=== PATIENT | female | born 1995 | race African-American/Black ===

== ENCOUNTER 2024-05-01 11:43 | Emergency (ER) | payer MEDICAID ==
[~2024-05-01] VITALS: Ht 167.6 cm; Wt 110.7 kg
[2024-05-01] MEDS: ONDANSETRON HCL 4 MG/2 ML VIAL IV ONE (12:21)
[2024-05-01] MEDS: SODIUM CHLORIDE 0.9% 1,000 ML IV ONE (12:22)
[2024-05-01 12:44] LABS: Urine Bacteria FEW /hpf (None Seen); Urine Blood Negative /uL (Negative); Urine Budding Yeast OCCASIONAL /hpf (None Seen); Urine Clarity Turbid (Clear); Urine Color Yellow (Yellow); Urine Hyaline Cast FEW /lpf (0 - 2); Urine Mucus FEW (None Seen); Urine Protein, UAD 1+ (Negative); Urine Specific Gravity 1.023 (1.001-1.035); Urine Urobilinogen Normal (Negative); Urine WBC 17 /hpf (0 - 5)
[2024-05-01 13:05] LABS: Basophils # (auto) 0 10 ^3/uL (0-0.2); Eosinophils # (auto) 0 10 ^3/uL (0-0.8); Eosinophils % (auto) 0.4 % (0.0-7.0); Lymphocytes # (auto) 0.9 10 ^3/uL (0.4-5.4); Mean Corpuscular Hemoglobin 26.7 pg (28.0-32.0); Monocytes # (auto) 0.4 10 ^3/uL (0-1.3); Red Cell Distribution Width 15.1 % (11.8-14.3); White Blood Cell 7.9 10^3/uL (4.4-10.8)
[2024-05-01 13:08] LABS: Basophils % (auto) 0.4 % (0.0-2.0); Hematocrit 35.9 % (36.0-46.0); Hemoglobin 12.3 g/dL (12.2-16.2); Lymphocytes % (auto) 10.9 % (10.0-50.0); Mean Corpuscular Hgb Conc. 34.2 g/dL (32.0-36.0); Mean Corpuscular Volume 78.2 fL (80.0-100.0); Monocytes % (auto) 5.5 % (0.0-12.0); Neutrophils # (auto) 6.6 10 ^3/uL (1.6-8.6); Neutrophils % (auto) 82.8 % (37.0-80.0); Red Blood Cells 4.59 10^6/uL (4.0-5.20)
[2024-05-01 13:14] LABS: Chloride 109 mmol/L (98-107); Potassium 3.5 mmol/L (3.5-5.1); Sodium 139 mmol/L (136-145)
[2024-05-01 13:15] LABS: Anion Gap 9 (5-15); Calcium 9.5 mg/dL (8.5-10.1); Carbon Dioxide 21 mmol/L (20-30)
[2024-05-01 13:20] LABS: BUN/Creatinine Ratio 12.1 (10.0-20.0); Blood Urea Nitrogen 8 mg/dL (9-23); Glucose 88 mg/dL (74-106)
[2024-05-01 14:14] VITALS: TEMP 98.5
[2024-05-01] MEDS ORDERED: CEPH250C PO (16:17)
[2024-05-01] MEDS ORDERED: ZOFR4T PO (16:18)
[2024-05-01 16:35] VITALS: BP 142/89; PULSE 88; RESP 17; O2SAT 98
== END 2024-05-01 16:34 | disposition home or self-care (01) ==
LOC: ER 11:43
DX: O23.41 Unspecified infection of urinary tract in pregnancy, first trimester (principal); N39.0 Urinary tract infection, site not specified; R10.2 Pelvic and perineal pain; Z3A.09 9 weeks gestation of pregnancy
CPT/HCPCS: 36415; 80048; 81001; 84702; 85025; 96361; 96374; 99283; J2405; J7030

== ENCOUNTER 2024-07-07 12:02 | Emergency (ER) | payer MEDICAID ==
[~2024-07-07] VITALS: Ht 170.2 cm; Wt 111.4 kg
[~2024-07-07 12:02] MED LIST: CEPH250C PO; ZOFR4T PO
[2024-07-07 12:20] VITALS: TEMP 97.8
[2024-07-07 12:22] VITALS: PULSE 105; RESP 12; O2SAT 93
[2024-07-07] MEDS: ONDANSETRON HCL 4 MG/2 ML VIAL IV ONE (12:38)
[2024-07-07] MEDS: SODIUM CHLORIDE 0.9% 1,000 ML IV ONE (12:38)
[2024-07-07 13:24] LABS: Basophils # (auto) 0 10 ^3/uL (0-0.2); Basophils % (auto) 0.3 % (0.0-2.0); Eosinophils # (auto) 0 10 ^3/uL (0-0.8); Eosinophils % (auto) 0.4 % (0.0-7.0); Hematocrit 36.7 % (36.0-46.0); Hemoglobin 12.4 g/dL (12.2-16.2); Lymphocytes # (auto) 1.1 10 ^3/uL (0.4-5.4); Lymphocytes % (auto) 12.2 % (10.0-50.0); Mean Corpuscular Hemoglobin 27.7 pg (28.0-32.0); Mean Corpuscular Hgb Conc. 33.9 g/dL (32.0-36.0); Mean Corpuscular Volume 81.7 fL (80.0-100.0); Monocytes # (auto) 0.4 10 ^3/uL (0-1.3); Monocytes % (auto) 4.8 % (0.0-12.0); Neutrophils # (auto) 7.4 10 ^3/uL (1.6-8.6); Neutrophils % (auto) 82.3 % (37.0-80.0); Platelet Count (auto) 232 10^3/uL (140-450); Red Blood Cells 4.48 10^6/uL (4.0-5.20); Red Cell Distribution Width 14.6 % (11.8-14.3)
[2024-07-07 13:40] LABS: Alanine Aminotransferase 12 U/L (7-40); Alkaline Phosphatase 84 U/L (46-116)
[2024-07-07 13:41] LABS: Albumin 4.3 g/dL (3.2-4.8); Anion Gap 10 (5-15); Aspartate Aminotransferase 12 U/L (13-40); Bilirubin, Total 0.7 mg/dL (0.2-1.0); Calcium 9.7 mg/dL (8.7-10.4); Carbon Dioxide 21 mmol/L (20-30); Chloride 107 mmol/L (98-107); Glucose 77 mg/dL (74-106); Lipase 35 U/L (12-53); Potassium 3.6 mmol/L (3.5-5.1); Sodium 138 mmol/L (136-145); Total Protein 7.6 g/dL (5.7-8.2)
[2024-07-07 13:42] LABS: BUN/Creatinine Ratio 8.6 (10.0-20.0); Blood Urea Nitrogen < 5 mg/dL (9-23)
[2024-07-07 15:26] VITALS: BP 120/71; PULSE 90; RESP 16; O2SAT 97
[2024-07-07 15:31] LABS: Urine Blood Negative /uL (Negative); Urine Clarity Turbid (Clear); Urine Color Yellow (Yellow); Urine Protein, UAD 1+ (Negative); Urine Specific Gravity 1.023 (1.001-1.035); Urine Urobilinogen 8 mg/dL (Negative); Urine pH 5.5 (5.0-9.0)
[2024-07-07] MEDS ORDERED: ZOFR4T PO (15:53)
== END 2024-07-07 16:03 | disposition home or self-care (01) ==
LOC: EDBD 12:02 → ER 12:02
DX: O21.9 Vomiting of pregnancy, unspecified (principal); Z3A.19 19 weeks gestation of pregnancy; Z79.899 Other long term (current) drug therapy
CPT/HCPCS: 36415; 80053; 81003; 83690; 85025; 96374; 99283; J2405

== ENCOUNTER 2024-10-14 18:05 | Observation (INO) | payer MEDICAID ==
[2024-10-14] MEDS ORDERED: LACTATED RINGER'S 1,000 ML IV SCH (18:45)
[2024-10-14 18:56] LABS: Urine Bacteria FEW /hpf (None Seen); Urine Blood Negative /uL (Negative); Urine Clarity Turbid (Clear); Urine Color Colorless (Yellow); Urine Hyaline Cast FEW /lpf (0 - 2); Urine Mucus FEW (None Seen); Urine Protein, UAD TRACE (Negative); Urine Specific Gravity 1.014 (1.001-1.035); Urine Urobilinogen Normal (Negative); Urine WBC 14 /hpf (0 - 5); Urine pH 5.5 (5.0-9.0)
[2024-10-14 19:00] LABS: Protein, Urine 14.9 mg/dL (1-14)
[2024-10-14 19:03] LABS: Creatinine, Urine 130.96 mg/dL (30.0-125.0); Urine Protein/Creatinine Ratio 0.11
[2024-10-14 19:08] LABS: Basophils # (auto) 0 10 ^3/uL (0-0.2); Basophils % (auto) 0.3 % (0.0-2.0); Eosinophils # (auto) 0 10 ^3/uL (0-0.8); Eosinophils % (auto) 0.2 % (0.0-7.0); Hematocrit 33.6 % (36.0-46.0); Hemoglobin 11.3 g/dL (12.2-16.2); Lymphocytes # (auto) 1.1 10 ^3/uL (0.4-5.4); Lymphocytes % (auto) 11.6 % (10.0-50.0); Mean Corpuscular Hemoglobin 26.5 pg (28.0-32.0); Mean Corpuscular Hgb Conc. 33.7 g/dL (32.0-36.0); Mean Corpuscular Volume 78.6 fL (80.0-100.0); Monocytes # (auto) 0.4 10 ^3/uL (0-1.3); Monocytes % (auto) 4.6 % (0.0-12.0); Neutrophils # (auto) 7.8 10 ^3/uL (1.6-8.6); Neutrophils % (auto) 83.3 % (37.0-80.0); Nucleated Red Blood Cells % 0.1 %; Platelet Count (auto) 201 10^3/uL (140-450); Red Blood Cells 4.27 10^6/uL (4.0-5.20); Red Cell Distribution Width 15.1 % (11.8-14.3); White Blood Cell 9.3 10^3/uL (4.4-10.8)
[2024-10-14] MEDS: LACTATED RINGER'S 1,000 ML IV ONE (19:08)
[2024-10-14] MEDS ORDERED: PREN-96 PO (19:18)
[2024-10-14 19:45] LABS: Albumin 3.8 g/dL (3.2-4.8); Alkaline Phosphatase 116 U/L (46-116); Anion Gap 8 (5-15); Bilirubin, Total 0.2 mg/dL (0.2-1.0); Calcium 9.4 mg/dL (8.7-10.4); Carbon Dioxide 21 mmol/L (20-31); Glucose 104 mg/dL (74-106); Potassium 3.6 mmol/L (3.5-5.1); Sodium 139 mmol/L (136-145); Total Protein 6.4 g/dL (5.7-8.2); Uric Acid 5.2 mg/dL (3.1-7.8)
[2024-10-14 19:46] LABS: Alanine Aminotransferase < 9 U/L (7-40); Aspartate Aminotransferase 9 U/L (13-40); BUN/Creatinine Ratio 8.3 (10.0-20.0); Blood Urea Nitrogen < 5 mg/dL (9-23); Chloride 110 mmol/L (98-107)
== END 2024-10-14 20:35 | disposition home or self-care (01) ==
LOC: LDRP 18:05
PROVIDERS: ADMIT Obstetrics & Gynecology; ATTEND Obstetrics & Gynecology
DX: O62.9 Abnormality of forces of labor, unspecified (principal); Z3A.32 32 weeks gestation of pregnancy; Z79.899 Other long term (current) drug therapy; Z98.890 Other specified postprocedural states
CPT/HCPCS: 36415; 59025; 80053; 81001; 81002; 82570; 84156; 84550; 85025; 94760; 96360; 96361; G0378

== ENCOUNTER 2024-10-17 08:18 | Observation (INO) | payer MEDICAID ==
[~2024-10-17 08:18] MED LIST changes: +PREN-96 PO
[2024-10-17 09:19] LABS: Urine Bacteria FEW /hpf (None Seen); Urine Blood Negative /uL (Negative); Urine Clarity Turbid (Clear); Urine Color Colorless (Yellow); Urine Protein, UAD TRACE (Negative); Urine Specific Gravity 1.014 (1.001-1.035); Urine Urobilinogen Normal (Negative); Urine WBC 16 /hpf (0 - 5); Urine pH 5.5 (5.0-9.0)
[2024-10-17 09:32] LABS: Protein, Urine 20.9 mg/dL (1-14)
[2024-10-17 09:35] LABS: Creatinine, Urine 145.62 mg/dL (30.0-125.0); Urine Protein/Creatinine Ratio 0.14
--- NOTE | 2024-10-17 10:19 | DVH ---
BIOPHYSICAL PROFILE HISTORY: PIH TECHNIQUE: Multiple transabdominal real-time grayscale sonographic images through the gravid uterus of the fetus with duplex Doppler color flow and M-mode spectral analysis FINDINGS: BIOPHYSICAL PROFILE: breathing score: 2 movement score: 2 tone score: 2 Quantitative BALWINDER score: 2 (BALWINDER: 10.5 Cm.) Total score: 8 The cervix not well visualized. Single live fetus in cephalic presentation. heart rate 158 beats per minute. Grade 1 posterior placenta without previa or abruption IMPRESSION: Biophysical profile score: 8
[2024-10-17 10:54] LABS: Protein, Urine 12.4 mg/dL (1-14)
[2024-10-17 11:24] LABS: 24 Hr. Total Protein, Urine 229.4 mg/24 Hr (<149.1)
--- NOTE | 2024-10-17 22:49 | DVHDS2 ---
Physician Discharge Progress N Final Diagnosis: testing for rule out PreE Operations or Procedures: Operations or Procedures 29yo IUP@33.0wks. Denies UCs/LOF/VB/VALVERDE/vision changes/RUQ pain. +FM. VSS UA wnl NST reactive (verified by 2 RNs) BPP: WNL FKC/PTL/PreE precautions reviewed Dr. Mercado consulted, agrees with POC to D/C home. Laboratory Tests Test 10/17/24 08:15 10/17/24 09:00 Range/Units Urine Color Colorless Yellow Urine Clarity Turbid H Clear Urine pH 5.5 5.0-9.0 Urine Specific [place] 1.014 1.001-1.035 Urine Protein Trace H Negative Urine Ketones Negative Negative Urine Blood Negative Negative /uL Urine Nitrite Negative Negative Urine Bilirubin Negative Negative Urine Urobilinogen Normal Negative mg/dL Urine Leukocyte Esterase 2+ Negative /uL Urine RBC 5 0 - 4 /hpf Urine WBC 16 0 - 5 /hpf Urine Squamous Epithelial Cells Mod <5 /hpf Urine Bacteria Few H None Seen /hpf Urine Creatinine 145.62 H 30.0-125.0 mg/dL Urine Protein/Creatinine Ratio 0.14 Urine Glucose Normal Normal mg/dL Urine Total Protein 20.9 H 12.4 1-14 mg/dL Urine Total Protein 24 Hour 229.4 <149.1 mg/24 Hr Condition on Discharge: Stable Disposition: Home Discharge Instructions: Diet: Regular Activity: No Restrictions, As Tolerated Medications: see med list Follow Up Care: Specialist: f/u in 3 days Discharge Statement: "Patient was advised to return to the ER or call 911 if any headaches, dizziness, shortness of breath, chest pain, abdominal pain, bleeding, fevers, or worsening of medical condition. Patient was counseled about treatment plan, medications, possible side effects, patientverbalized understanding. All questions were answered to the best of my ability. This discharge took greater then 30 minutes in planning, reviewing documentation, counseling the patient, and discussing with other team members." KRISTIN YODER CNM Oct 17, 2024 22:49
== END 2024-10-17 11:52 | disposition home or self-care (01) ==
LOC: LDRP 08:18
PROVIDERS: ADMIT Obstetrics & Gynecology; ATTEND Obstetrics & Gynecology
DX: O26.893 Other specified pregnancy related conditions, third trimester (principal); R51.9 Headache, unspecified; Z3A.33 33 weeks gestation of pregnancy; Z79.899 Other long term (current) drug therapy
CPT/HCPCS: 59025; 76818; 81001; 81002; 82570; 84156; 94760; G0378

== ENCOUNTER 2024-10-20 07:41 | Observation (INO) | payer MEDICAID ==
--- NOTE | 2024-10-20 08:36 | DVH ---
BIOPHYSICAL PROFILE HISTORY: PIH TECHNIQUE: Multiple transabdominal real-time grayscale sonographic images through the gravid uterus of the fetus with duplex Doppler color flow and M-mode spectral analysis FINDINGS: BIOPHYSICAL PROFILE: breathing score: 2 movement score: 2 tone score: 2 Quantitative BALWINDER score: 2 (BALWINDER: 12.5 Cm.) Total score: 8 The cervix not well visualized. Single live fetus in 152 presentation. heart rate 152 beats per minute. Posterior placenta without previa or abruption IMPRESSION: Biophysical profile score: 8
--- NOTE | 2024-10-20 15:27 | DVHDS2 ---
Physician Discharge Progress N Final Diagnosis: Encounter for testing Secondary Diagnosis: Gestaional HTN Operations or Procedures: Operations or Procedures PATIENT: MARGI SANFORD ACCT: [id number] UNIT: [id number] : 1995 LOC: [facility] ROOM / BED: TRIAGE1 / A AGE / SEX: 29 / F ADM STATUS: ADM IN SERVICE [id number] ORDERING PHYSICIAN: RYAN OTTO DO PROCEDURE(s): BPP - BIOPHYSICAL PROFILE REASON: PIH ORDER NUMBER(s): [id number], ACCESSION NUMBER(s): [id number] BIOPHYSICAL PROFILE HISTORY: PIH TECHNIQUE: Multiple transabdominal real-time grayscale sonographic images through the gravid uterus of the fetus with duplex Doppler color flow and M-mode spectral analysis FINDINGS: BIOPHYSICAL PROFILE: breathing score: 2 movement score: 2 tone score: 2 Quantitative BALWINDER score: 2 (BALWINDER: 12.5 Cm.) Total score: 8 The cervix not well visualized. Single live fetus in 152 presentation. heart rate 152 beats per minute. Posterior placenta without previa or abruption IMPRESSION: Biophysical profile score: 8 Commentary: Commentary NST/BPP BALWINDER all WNL VS stable, BP's normal Condition on Discharge: Stable Disposition: Home Discharge Instructions: Diet: Regular Activity: Light activity Follow Up/Referral: as scheduled per Dr. Mercado Medications: N/A Follow Up Care: Discharge Statement: "Patient was advised to return to the ER or call 911 if any headaches, dizziness, shortness of breath, chest pain, abdominal pain, bleeding, fevers, or worsening of medical condition. Patient was counseled about treatment plan, medications, possible side effects, patientverbalized understanding. All questions were answered to the best of my ability. This discharge took greater then 30 minutes in planning, reviewing documentati on, counseling the patient, and discussing with other team members." RYAN OTTO DO Oct 20, 2024 15:27
== END 2024-10-20 09:40 | disposition home or self-care (01) ==
LOC: LDRP 07:41
PROVIDERS: ADMIT Obstetrics & Gynecology; ATTEND Obstetrics & Gynecology
DX: O13.3 Gestational [pregnancy-induced] hypertension without significant proteinuria, third trimester (principal); Z3A.33 33 weeks gestation of pregnancy; Z79.899 Other long term (current) drug therapy
CPT/HCPCS: 59025; 76818; 81002; 94760; G0378

== ENCOUNTER 2024-10-24 07:36 | Observation (INO) | payer MEDICAID ==
--- NOTE | 2024-10-24 08:16 | DVH ---
Procedure: US BIOPHYSICAL PROFILE 10/24/2024 07:46 AM Indication: PIH Comparison: US BIOPHYSICAL PROFILE on DOS: 10/20/24, US BIOPHYSICAL PROFILE on DOS: 10/17/24 Technique: Sonogram of gravid uterus utilizing grayscale and color techniques. FINDINGS: Single living intrauterine gestation. Presentation: Cephalic Placenta: Posterior, grade 1 heart rate: 164 bpm BALWINDER: 15.7 cm, DVP: 5.8 cm Maternal cervix: Not visualized Biophysical Profile: breathing score: 2 movement score: 2 tone: 2 Quantitative BALWINDER score: 2 Total score: 8/8 IMPRESSION: 1. Single living as above. 2. Biophysical profile score: 8/8.
[2024-10-24 09:09] LABS: Urine Bacteria FEW /hpf (None Seen); Urine Blood Negative /uL (Negative); Urine Clarity Clear (Clear); Urine Color Light-Yellow (Yellow); Urine Protein, UAD Negative (Negative); Urine Specific Gravity 1.014 (1.001-1.035); Urine Squamous Epithelial Cell FEW /hpf (<5); Urine Urobilinogen Normal (Negative); Urine WBC 9 /hpf (0 - 5)
[2024-10-24 09:17] LABS: Creatinine, Urine 115.52 mg/dL (30.0-125.0)
[2024-10-24 09:30] LABS: Basophils # (auto) 0 10 ^3/uL (0-0.2)
[2024-10-24 09:32] LABS: Basophils % (auto) 0.2 % (0.0-2.0); Eosinophils # (auto) 0.1 10 ^3/uL (0-0.8); Eosinophils % (auto) 0.7 % (0.0-7.0); Hemoglobin 11.6 g/dL (12.2-16.2); Lymphocytes % (auto) 13.2 % (10.0-50.0); Mean Corpuscular Hemoglobin 25.9 pg (28.0-32.0); Mean Corpuscular Volume 78.6 fL (80.0-100.0); Monocytes # (auto) 0.4 10 ^3/uL (0-1.3); Monocytes % (auto) 5.1 % (0.0-12.0); Neutrophils # (auto) 6.2 10 ^3/uL (1.6-8.6); Neutrophils % (auto) 80.8 % (37.0-80.0); Platelet Count (auto) 209 10^3/uL (140-450); Red Blood Cells 4.46 10^6/uL (4.0-5.20); Red Cell Distribution Width 15.3 % (11.8-14.3); White Blood Cell 7.7 10^3/uL (4.4-10.8)
[2024-10-24 09:45] LABS: Alanine Aminotransferase 11 U/L (7-40); Albumin 3.8 g/dL (3.2-4.8); Anion Gap 8 (5-15); Aspartate Aminotransferase 13 U/L (13-40); BUN/Creatinine Ratio 8.2 (10.0-20.0); Bilirubin, Total 0.3 mg/dL (0.2-1.0); Calcium 9.7 mg/dL (8.7-10.4); Carbon Dioxide 21 mmol/L (20-31); Glucose 102 mg/dL (74-106); Potassium 3.7 mmol/L (3.5-5.1); Sodium 138 mmol/L (136-145); Total Protein 6.7 g/dL (5.7-8.2)
[2024-10-24 09:58] LABS: INR 0.95 (0.9-1.15); Partial Thromboplastin Time 27.4 SEC (24.5-34.5); Prothrombin Time 10.1 sec (9.3-11.8)
[2024-10-24 10:19] LABS: Alkaline Phosphatase 124 U/L (46-116); Blood Urea Nitrogen 5 mg/dL (9-23); Chloride 109 mmol/L (98-107)
[2024-10-24 11:56] LABS: Protein, Urine 15.1 mg/dL (1-14); Urine Protein/Creatinine Ratio 0.13
--- NOTE | 2024-10-24 12:05 | DVHDS2 ---
Physician Discharge Progress N Final Diagnosis: testing for GHTN Problems List: (1) Third trimester (2) Gestational hypertension Operations or Procedures: Operations or Procedures 29yo IUP@34.0wks, denies UCs/VB/LOF/VALVERDE/vision changes/RUQ pain. VSS except hypertension NST reactive (verified by 2 RNs) BPP wnl FKC/PTL/PreE precautions reviewed Dr. Mercado consulted, [facility]24 and rx sent for labetalol 100mg PO BID. Laboratory Tests Test 10/24/24 08:49 10/24/24 09:12 Range/Units Urine Color Light-yellow Yellow Urine Clarity Clear Clear Urine pH 6.0 5.0-9.0 Urine Specific [place] 1.014 1.001-1.035 Urine Protein Negative Negative Urine Ketones Negative Negative Urine Blood Negative Negative /uL Urine Nitrite Negative Negative Urine Bilirubin Negative Negative Urine Urobilinogen Normal Negative mg/dL Urine Leukocyte Esterase 1+ Negative /uL Urine RBC 1 0 - 4 /hpf Urine WBC 9 0 - 5 /hpf Urine Squamous Epithelial Cells Few <5 /hpf Urine Bacteria Few H None Seen /hpf Urine Creatinine 115.52 30.0-125.0 mg/dL Urine Protein/Creatinine Ratio 0.13 Urine Glucose Normal Normal mg/dL Urine Total Protein 15.1 H 1-14 mg/dL White Blood Count 7.7 4.4-10.8 10^3/uL Red Blood Count 4.46 4.0-5.20 10^6/uL Hemoglobin 11.6 L 12.2-16.2 g/dL Hematocrit 35.0 L 36.0-46.0 % Mean Corpuscular Volume 78.6 L 80.0-100.0 fL Mean Corpuscular Hemoglobin 25.9 L 28.0-32.0 pg Mean Corpuscular Hemoglobin Concent 33.0 32.0-36.0 g/dL Red Cell Distribution Width 15.3 H 11.8-14.3 % Platelet Count 209 140-450 10^3/uL Mean Platelet Volume 9.3 6.9-10.8 fL Neutrophils (%) (Auto) 80.8 H 37.0-80.0 % Lymphocytes (%) (Auto) 13.2 10.0-50.0 % Monocytes (%) (Auto) 5.1 0.0-12.0 % Eosinophils (%) (Auto) 0.7 0.0-7.0 % Basophils (%) (Auto) 0.2 0.0-2.0 % Neutrophils # (Auto) 6.2 1.6-8.6 10 ^3/uL Lymphocytes # (Auto) 1.0 0.4-5.4 10 ^3/uL Monocytes # (Auto) 0.4 0-1.3 10 ^3/uL Eosinophils # (Auto) 0.1 0-0.8 10 ^3/uL Basophils # (Auto) 0 0-0.2 10 ^3/uL Nucleated Red Blood Cells 0.0 % Prothrombin Time 10.1 9.3-11.8 sec Prothrombin Time INR 0.95 0.9-1.15 Activated Partial Thromboplast Time 27.4 24.5-34.5 SEC Sodium Level 138 136-145 mmol/L Potassium Level 3.7 3.5-5.1 mmol/L Chloride Level 109 H 98-107 mmol/L Carbon Dioxide Level 21 20-31 mmol/L Anion Gap 8 5-15 Blood Urea Nitrogen 5 L 9-23 mg/dL Creatinine 0.61 0.550-1.02 mg/dL Glomerular Filtration Rate Calc 126 >90 mL/min BUN/Creatinine Ratio 8.2 L 10.0-20.0 Serum Glucose 102 74-106 mg/dL Uric Acid 5.0 3.1-7.8 mg/dL Calcium Level 9.7 8.7-10.4 mg/dL Total Bilirubin 0.3 0.2-1.0 mg/dL Aspartate Amino Transferase (AST) 13 13-40 U/L Alanine Aminotransferase (ALT) 11 7-40 U/L Alkaline Phosphatase 124 H 46-116 U/L Total Protein 6.7 5.7-8.2 g/dL Albumin 3.8 3.2-4.8 g/dL Condition on Discharge: Stable Disposition: Home Discharge Instructions: Diet: Regular Activity: No Restrictions, As Tolerated Medications: see med list Follow Up Care: Specialist: f/u in 1 day Discharge Statement: "Patient was advised to return to the ER or call 911 if any headaches, dizziness, shortness of breath, chest pain, abdominal pain, bleeding, fevers, or worsening of medical condition. Patient was counseled about treatment plan, medications, possible side effects, patientverbalized understanding. All questions were answered to the best of my ability. This discharge took greater then 30 minutes in planning, reviewing documentation, counseling the patient, and discussing with other team members." KRISTIN YODER CNM Oct 24, 2024 12:05
[2024-10-24] MEDS ORDERED: LABE100T7 PO (12:11)
== END 2024-10-24 11:59 | disposition home or self-care (01) ==
LOC: LDRP 07:36
PROVIDERS: ADMIT Obstetrics & Gynecology; ATTEND Obstetrics & Gynecology
DX: O13.3 Gestational [pregnancy-induced] hypertension without significant proteinuria, third trimester (principal); Z98.890 Other specified postprocedural states; Z79.899 Other long term (current) drug therapy; Z3A.34 34 weeks gestation of pregnancy
CPT/HCPCS: 36415; 59025; 76818; 80053; 81001; 81002; 82570; 84156; 84550; 85025; 85610; 85730; 94760; G0378

== ENCOUNTER 2024-10-25 08:14 | Observation (INO) | payer MEDICAID ==
[~2024-10-25 08:14] MED LIST changes: -CEPH250C PO; +LABE100T7 PO; -ZOFR4T PO
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
--- NOTE | 2024-10-25 13:56 | DVHDS2 ---
Physician Discharge Progress N Final Diagnosis: pih sucidal ideation Operations or Procedures: Operations or Procedures saraht,maritza, Consultations: Consultations psych consult Commentary: Commentary pt had consult with psych will transfer to er for Condition on Discharge: Guarded Disposition: er Discharge Instructions: Diet: Regular, See Comment Activity: Bed rest Medications: na Follow Up Care: Specialist: hold Discharge Statement: "Patient was advised to return to the ER or call 911 if any headaches, dizziness, shortness of breath, chest pain, abdominal pain, bleeding, fevers, or worsening of medical condition. Patient was counseled about treatment plan, medications, possible side effects, patientverbalized understanding. All questions were answered to the best of my ability. This discharge took greater then 30 minutes in planning, reviewing documentation, counseling the patient, and discussing with other team members." SUSAN RICHARDS DO Oct 25, 2024 13:56
== END 2024-10-25 12:08 | disposition still patient (30) ==
LOC: LDRP 08:14
PROVIDERS: ADMIT Obstetrics & Gynecology; ATTEND Obstetrics & Gynecology
DX: O9A.213 Injury, poisoning and certain other consequences of external causes complicating pregnancy, third trimester (principal); S41.119A Laceration without foreign body of unspecified upper arm, initial encounter; O99.343 Other mental disorders complicating pregnancy, third trimester; R45.851 Suicidal ideations; O13.3 Gestational [pregnancy-induced] hypertension without significant proteinuria, third trimester; Z3A.36 36 weeks gestation of pregnancy; W26.8XXA Contact with other sharp object(s), not elsewhere classified, initial encounter; Y93.89 Activity, other specified; Y92.89 Other specified places as the place of occurrence of the external cause; Y99.8 Other external cause status
CPT/HCPCS: 59025; 81002; 94760; G0378

== ENCOUNTER 2024-10-25 12:16 | Emergency (ER) | payer MEDICAID ==
[~2024-10-25] VITALS: Ht 170.2 cm; Wt 121.5 kg
[2024-10-25 12:50] VITALS: PULSE 102; RESP 22; O2SAT 98
--- NOTE | 2024-10-25 13:13 | ED.PDOC ---
Psychiatric HPI Comments 29y F who presents to the ED for chief complaint of Suicidal ideations. Pt states today, she cut her L wrist and family noticed and pt was brought to the ED for further evaluation. Pt in the ED, denies any current Suicidal or homicidal ideations at this time. Pt Pt states she is currently 34 weeks along , and states she recently had OB appt 2 days prior. Pt denies any past psychiatric history. Pt denies any auditory or visual hallucinations. Pt otherwise denies any other symptoms at this time. Chief Complaint: Suicidal Time Seen by MD: 13:09 Primary Care Provider: Nichol Harden Notes: Nurses Notes Information Source: Patient Mode of Arrival: Ambulatory Severity: Able to Care for Self Severity of Pain: Moderate Severity of Mental Status: Moderate Severity of Symptoms: Moderate Timing: Hours Duration: Since onset Prehospital treatment: None Presents with: Suicidal Ideation Attempt: Laceration Ingestion: Intentional Circumstance: Medical Clearance Current substance abuse: Unknown Stressors: Family History of: None Quality: None Location: Right Location of pain or injury: Wrist Associated signs and symptoms: None Past Medical History PAST MEDICAL HISTORY: Denies Surgical History: Denies all surgeries JAVASCRIPT APPLICATION DEVELOPER History: No Pertinent JAVASCRIPT APPLICATION DEVELOPER History Family History Family History: Reviewed,noncontributory to illness Social History Smoker: Non-Smoker Alcohol: Denies ETOH Use Drugs: Denies Drug Use Lives In: Home Constitutional: denies: chills, diaphoresis, fatigue, fever, malaise, sweats, weakness, others EENTM: denies: blurred vision, double vision, ear bleeding, ear discharge, ear drainage, ear pain, ear ringing, eye pain, eye redness, hearing loss, mouth pain, mouth swelling, nasal discharge, nose bleeding, nose congestion, nose pain, photophobia, tearing, throat pain, throat swelling, voice changes, others Respiratory: denies: cough, hemoptysis, orthopnea, SOB at rest, shortness of breath, SOB with excertion, stridor, wheezing, others Cardiovascular: denies: chest pain, dizzy spells, diaphoresis, Dyspnea on exertion, edema, irregular heart beat, left arm pain, lightheadedness, palpitations, PND, syncope, others Gastrointestinal: denies: abdomen distended, abdominal pain, blood streaked bowels, constipated, diarrhea, dysphagia, difficulty swallowing, hematemesis, melena, nausea, poor appetite, poor fluid intake, rectal bleeding, rectal pain, vomiting, others Genitourinary: denies: abnormal vagina bleeding, burning, dyspareunia, dysuria, flank pain, frequency, hematuria, incontinence, pain, , vagina discharge, urgency, others Neurological: denies: dizziness, fainting, headache, left sided numbness, left sided weakness, numbness, paresthesia, pre-existing deficit, right sided numbness, right sided weakness, seizure, speech problems, tingling, tremors, weakness, others Musculoskeletal: denies: back pain, gout, joint pain, joint swelling, muscle pain, muscle stiffness, neck pain, others Integumetry: denies: bruises, change in color, change in hair/nails, dryness, laceration, lesions, lumps, rash, wounds, others Allergic/Immunocompromised: denies: Difficulty Healing, Frequent Infections, Hives, Itching, others Hematologic/Lymphatic: denies: anemia, blood clots, easy bleeding, easy bruising, swollen glands, others Endocrine: denies: excessive hunger, excessive sweating, excessive thirst, excessive urination, flushing, intolerance to cold, intolerance to heat, u nexplained weight gain, unexplained weight loss, others Psychiatric: reports: suicidal; denies: anxiety, bipolar disorder, depression, hopeless, panic disorder, schizophrenia, sleepless, others All Other Systems: Reviewed and Negative Physical Exam General Appearance: Moderate Distress HEENT: Normal ENT Inspection, Pharynx Normal, TMs Normal Neck: Full Range of Motion, Non-Tender, Normal, Normal Inspection Respiratory: Chest Non-Tender, Lungs Clear, No Accessory Muscle Use, No Respiratory Distress, Normal Breath Sounds Cardiovascular: No Edema, No JVD, No Murmur, No Gallop, Normal Peripheral Pulses, Regular Rate/Rhythm Breast Exam: Deferred Gastrointestinal: Non Tender, No Pulsatile Mass, Normal Bowel Sounds, Soft, Other (Gravid uterus) Genitalia: Deferred Pelvic: Deferred Rectal: Deferred Extremities: No calf tenderness, Normal capillary refill, Normal inspection, Normal range of motion, Non-tender, No pedal edema Musculoskeletal : Apperance: Normal Neurologic: Alert, reciprocating drill operator II-XII nml as Tested, No Motor Deficits, Normal Affect, Normal Mood, No Sensory Deficits Cerebellar Function: Normal Reflexes: Normal Skin: Lacerations (L wrist) Lymphatic: No Adenopathy Was a procedure done? Was a procedure done?: No Psych Differential Dx Psych. Differential Dx: Depression, Hopeless, Suicidal Other Differentail Dx drug use, X-Ray, Labs, Meds, VS Vital Signs Date Time Temp Pulse Resp B/P (MAP) Pulse Ox O2 Delivery O2 Flow Rate FiO2 10/25/24 16:03 100 18 128/87 (101) 95 10/25/24 14:52 92 20 129/69 (89) 98 10/25/24 12:50 102 22 150/83 (105) 98 10/25/24 12:50 102 22 98 Room Air* 0 21 10/25/24 12:25 98.2 99 18 149/92 (111) 100 Lab Test 10/25/24 13:33 10/25/24 13:10 Range/Units Plasma/Serum Blood Alcohol < 3.0 <10 mg/dL Urine Opiates Screen Neg NEGATIVE Urine Fentanyl Screen Neg NEGATIVE Urine Barbiturates Screen Neg NEGATIVE Urine Phencyclidine Screen Neg NEGATIVE Urine Amphetamines Screen Neg NEGATIVE Urine Benzodiazepines Screen Neg NEGATIVE Urine Cocaine Screen Neg NEGATIVE Urine Cannabinoids Screen Neg NEGATIVE The patient was considered to be medically cleared The urine tox is negative The alcohol level is negative At this time, the patient will have a telemedicine consult. The patient is just awaiting to be placed on a 5150 The patient will be signed out to Dr. Presley Time of 1ST Reevaluation: 13:40 Reevaluation 1ST: Unchanged Patient Education/Counseling: Diagnosis, Treatment, Prognosis Family Education/Counseling: No Family Present Additional Information I reviewed the following notes from patient's past medical encounters: The following tests were ordered, and results were reviewed by me: tele-psych consult, blood alcohol , drug screen Additional Information was gathered from interviewing the following independent historians: none I reviewed and agreed with the following test results read by other providers: psychiatrist I discussed treatment and results with medical personnel and: patient Departure 1 Departure Time of Disposition: 15:21 Impression: Primary Impression: Third trimester Additional Impression: Depression Qualified Codes: F32.A - Depression, unspecified Disposition: 30 STILL A PATIENT Condition: Fair Critical Care Note Critical Care Time?: No Stability Stability form required: No Heart Score Heart Score: Heart Score Response (Comments) Value History N/A 0 EKG N/A 0 Age N/A 0 Risk Factors N/A 0 Troponin N/A 0 Total 0 I personally scribed for KUMAR PEDRO MD ([email or web address]) on 10/25/24 at 13:13. Electronically submitted by Yenifer Pugh ([email or web address]). KUMAR PEDRO MD Oct 25, 2024 13:13
[2024-10-25 13:49] LABS: Amphetamine Screen, Urine Neg (NEGATIVE); Barbiturate Scree,Urine Neg (NEGATIVE); Benzodiazephine Screen, Urine Neg (NEGATIVE); Cannabinoid Screen, Urine Neg (NEGATIVE); Cocaine Screen, Urine Neg (NEGATIVE); Opiate Scree,Urine Neg (NEGATIVE); Phencyclidine Screen, Urine Neg (NEGATIVE)
[2024-10-25 20:00] VITALS: PULSE 96; RESP 18; O2SAT 97
[2024-10-26 08:00] VITALS: PULSE 103; RESP 17; O2SAT 98
[2024-10-26 19:45] VITALS: PULSE 95; RESP 13; O2SAT 98
--- NOTE | 2024-10-27 10:30 | DVH ---
BIOPHYSICAL PROFILE HISTORY: PIH TECHNIQUE: Multiple transabdominal real-time grayscale sonographic images through the gravid uterus of the fetus with duplex Doppler color flow and M-mode spectral analysis FINDINGS: BIOPHYSICAL PROFILE: breathing score: 2 movement score: 2 tone score: 2 Quantitative BALWINDER score: 2 (BALWINDER: 15.1 Cm.) Total score: 8/8 Single live fetus in cephalic presentation. heart rate 157 beats per minute. Posterior placenta without previa or abruption IMPRESSION: 1. Biophysical profile score: 8/8 HS:Y
[2024-10-27 10:37] LABS: Basophils # (auto) 0 10 ^3/uL (0-0.2); Basophils % (auto) 0.3 % (0.0-2.0); Eosinophils # (auto) 0.1 10 ^3/uL (0-0.8); Eosinophils % (auto) 0.7 % (0.0-7.0); Hematocrit 33.4 % (36.0-46.0); Lymphocytes % (auto) 11.5 % (10.0-50.0); Mean Corpuscular Hemoglobin 26.2 pg (28.0-32.0); Mean Corpuscular Volume 79.6 fL (80.0-100.0); Monocytes # (auto) 0.4 10 ^3/uL (0-1.3); Monocytes % (auto) 5.3 % (0.0-12.0); Neutrophils % (auto) 82.2 % (37.0-80.0); Nucleated Red Blood Cells % 0.1 %; Platelet Count (auto) 204 10^3/uL (140-450); Red Cell Distribution Width 15.3 % (11.8-14.3); White Blood Cell 8.5 10^3/uL (4.4-10.8)
[2024-10-27 10:52] LABS: INR 0.98 (0.9-1.15); Partial Thromboplastin Time 26.9 SEC (24.5-34.5); Prothrombin Time 10.4 sec (9.3-11.8)
[2024-10-27 11:02] LABS: Albumin 3.5 g/dL (3.2-4.8); Alkaline Phosphatase 111 U/L (46-116); Anion Gap 5 (5-15); BUN/Creatinine Ratio 10.8 (10.0-20.0); Calcium 9.6 mg/dL (8.7-10.4); Carbon Dioxide 22 mmol/L (20-31); Glucose 103 mg/dL (74-106); Potassium 3.9 mmol/L (3.5-5.1)
[2024-10-27 11:03] LABS: Bilirubin, Total 0.3 mg/dL (0.2-1.0); Total Protein 6.2 g/dL (5.7-8.2)
[2024-10-27 11:14] LABS: Alanine Aminotransferase < 9 U/L (7-40); Aspartate Aminotransferase 10 U/L (13-40); Blood Urea Nitrogen 7 mg/dL (9-23); Chloride 108 mmol/L (98-107); Sodium 135 mmol/L (136-145)
[2024-10-27 11:23] LABS: Uric Acid 5.5 mg/dL (3.1-7.8)
[2024-10-27 12:35] LABS: Protein, Urine 7.4 mg/dL (1-14)
[2024-10-27 12:38] LABS: Creatinine, Urine 58.07 mg/dL (30.0-125.0); Urine Protein/Creatinine Ratio 0.13
--- NOTE | 2024-10-27 15:43 | DVHDS2 ---
Physician Discharge Progress N Final Diagnosis: 3rd trim Suicidal ideation Gestational HTN Secondary Diagnosis: Encounter for surveillance Operations or Procedures: Operations or Procedures NST/BPP/BALWINDER all WNL PIH labs all negative Condition on Discharge: Guarded Disposition: Still a Patient (ER) Discharge Instructions: Diet: Regular Activity: Light activity Follow Up/Referral: As scheduled w/ Dr. Mercado Medications: No new meds Follow Up Care: Discharge Statement: "Patient was advised to return to the ER or call 911 if any headaches, dizziness, shortness of breath, chest pain, abdominal pain, bleeding, fevers, or worsening of medical condition. Patient was counseled about treatment plan, medications, possible side effects, patientverbalized understanding. All questions were answered to the best of my ability. This discharge took greater then 30 minutes in planning, reviewing documentation, counseling the patient, and discussing with other team members." RYAN OTTO DO Oct 27, 2024 15:43
[2024-10-27 19:30] VITALS: PULSE 96; RESP 12; O2SAT 98
[2024-10-28 08:00] VITALS: PULSE 87; RESP 20; O2SAT 98
--- NOTE | 2024-10-28 14:48 | DVH ---
EXAM: US OB ULTRASOUND COMP GTR 14 WKS CLINICAL HISTORY: monitor pregnacy COMPARISON: None TECHNIQUE: Grayscale, color-flow Doppler, and spectral Doppler ultrasound of the pelvis is performed by transabdominal technique. Findings: Single live intrauterine in vertex presentation with heart rate of 166 bpm. Cervical os is suboptimally visualized. Placenta is posterior in location without evidence of previa or abruption. Limited evaluation of anatomy. Estimated gestational age 34 weeks 3 days based on parameters which include biparietal diameter 8.6 cm, head circumference 31.7 cm, abdominal circumference 29.8 cm, and femur length 6.[address] ratios within normal limits. Estimated weight 2316 g (5 lbs 2 oz). Amniotic fluid is within normal limits with BALWINDER 14.9 cm and MVP 5.7 cm. Impression: 1. Single live intrauterine in vertex presentation with heart rate of 166 bpm. 2. Estimated gestational age 34 weeks 3 days with estimated date of confinement 12/06/2024.
[2024-10-28 19:30] VITALS: PULSE 91; RESP 21; O2SAT 100
--- NOTE | 2024-10-28 21:28 | ED.PDOC ---
Departure 1 Departure Time of Disposition: 21:27 (Patient is resting comfortably. Patient was cleared by OB. Patient is pending acceptance at a psychiatric facility. [facility] reports they may have a bed available.) Impression: Primary Impression: Third trimester Additional Impression: Depression Qualified Codes: F32.A - Depression, unspecified Disposition: 30 STILL A PATIENT Condition: Serious MICK NIETO MD Oct 28, 2024 21:27
--- NOTE | 2024-10-29 01:08 | DVHINCON2 ---
Date of Service if different f: Oct 29, 2024 Time of Service: 00:25 Consult Consult Note PSYCHIATRY ED NEW CONSULT HPI: 29 yo pt with PPH of depression presents to ED for safety, psychiatric stabilization and possible med initiation in setting of SIB via superficial cutting. Psychiatry consulted for safety evaluation and recommendations in context of current presentation. Of note, pt is 34 weeks Per pt, reports over past several weeks feeling "frustrated and scared" in setting of upcoming , financial strains and having somewhat limited support system to assist with care hence engaged in SIB via superficial cutting on L wrist with razor blade. Pt adamantly denies SIB as suicide attempt/gesture or self harm behavior, rather "i sometimes cut myself as a coping mechanism when I feel stressed although I know its not the right way to deal with stress but i was feeling lonely and didn't have anyone to talk to" Currently denies depressed mood, hopelessness, helplessness, negative thoughts, loss of interest, or anhedonia. Denies panic/OCD/PTSD symptoms. Sleep/appetite/energy/conc relatively WNL. Adamantly denies SI/HI. Denies AVH/paranoia/catatonic/perceptual disturbances/personality changes. No overt manic, psychotic, major depressive, cognitive, dissociative phenomena, panic, or somatic symptoms noted. Appears future oriented/goal directed Pt currently does not have psychiatrist/therapist out in community. Currently not on any psychotropic agents. No prior psych med trials. Denies self medicating mood symptoms with ETOH, THC or IDU Never , no children, unemployed, lives in a room at her parents friends residence, HS grad, no legal issues, limited support system noted (immediate family). Unknown trauma hx. Unknown FH. No acute medical issues, hx of seizures/TBI, or recent head injuries, NKDA Does not have hx of suicide attempts although hx of SIB via superficial cutting, last cut several days ago, one remote psych hospitalizations at age 20 for SI. Denies history of violence, unprovoked aggression, or assaultive behaviors. Denies recent hx of impulsivity, attention seeking behaviors, anger outbursts, emotional dysregulation, mood reactivity or engaging in risky behaviors. Does not have access to firearms. Currently denies SI/HI. Identifies self/family as PPF. No safety concerns noted during encounter. MSE: General Appearance/Behavior: Alert and awake; appears stated age, overweight, fair grooming and hygiene; calm and cooperative, fair eye contact, no PMA/PMR Speech: coherent, rrr Thought Process: linear, logical, appears goal-directed Thought Content: Abnormal Thoughts and Perceptions: None Homicidality / Violent Thoughts: None Suicidality: adamantly denies SI Hallucinations: denies AVH Delusions: denies paranoia, persecutory, or grandiose delusions Obsessions /compulsions : None Judgment and Insight: fair / improved judgment with fair insight Mood & Affect: "good" with mood-congruent, euthymic, appropriate Orientation: oriented to person, place, time Attention/Concentration: appears intact Memory: grossly intact Language: no unusual or inappropriate language Assessment: 29 yo pt with PPH of depression presents to ED for safety, psychiatric stabilization and possible med initiation in setting of SIB via superficial cutting. Currently denies SI/HI/AVH. Linear and appears future oriented/ goal directed in thought. Identifies several protective factors including a desire to live and upcoming next month, looks forward to being a first time parent. Pts presenting MH symptoms / SIB appear more secondary to difficulty controlling emotions and ineffective coping mechanisms in context of acute psychosocial stressors (see HPI) with minimal interference in daily functioning Presently, pt does not show any signs of immediate danger to self or others that would warrant a higher level of care. Thus, pt does not meet criteria for 5150 or involuntary inpatient psych admission as is not DTS, DTO or GD although voluntary inpt psychiatric hospitalization was offered but pt respectfully declined. Also declined further ED observation/reevaluation. No acute safety concerns noted. Acute suicide risk appears nonexistent to relatively low. Pt currently does not have psychiatrist/therapist out in community although interested in seeking MH resources prior to d/c for psychotherapy Psychotropic med initiation not clinically indicated at this time Primary Diagnosis: Mood disorder unspecified Plan: Does not warrant involuntary inpatient psychiatric hospitalization or 5150 hold at this time No acute safety concerns Pt can be safely discharged back to current residence Psychotropic med initiation not clinically indicated at this time Supportive tx provided, discussed safety plan with pt Encouraged mindfulness techniques (reading, walking, meditation, journaling, exercise, deep breathing) during times of stress Would benefit from establishing community MH services for psychotx please provide pt MH resources for therapy prior to discharge per pts request Instructed pt to call [phone] or return to ED if mood symptoms worsen or new on set SI/HI upon discharge Pt verbalized understanding and is receptive to above tx plan This case was discussed with ED nurse/provider and all parties in agreement with above tx plan Bartolo Jarrell MD Plan discussed with: Patient BARTOLO JARRELL MD Oct 29, 2024 01:08
[2024-10-29 08:00] VITALS: TEMP 98.1
[2024-10-29 08:51] VITALS: PULSE 104; RESP 16; O2SAT 98
[2024-10-29 10:00] VITALS: BP 112/80; PULSE 88; RESP 18; O2SAT 99
== END 2024-10-29 10:50 | disposition home or self-care (01) ==
LOC: ER 12:19
DX: O99.343 Other mental disorders complicating pregnancy, third trimester (principal); O13.3 Gestational [pregnancy-induced] hypertension without significant proteinuria, third trimester; O99.213 Obesity complicating pregnancy, third trimester; O9A.213 Injury, poisoning and certain other consequences of external causes complicating pregnancy, third trimester; S61.512A Laceration without foreign body of left wrist, initial encounter; R45.851 Suicidal ideations; F32.A Depression, unspecified; Z79.899 Other long term (current) drug therapy; Z36.9 Encounter for antenatal screening, unspecified; Z3A.34 34 weeks gestation of pregnancy; Z65.8 Other specified problems related to psychosocial circumstances; Z71.82 Exercise counseling; X99.8XXA Assault by other sharp object, initial encounter; Y93.89 Activity, other specified; Y92.89 Other specified places as the place of occurrence of the external cause; Y99.8 Other external cause status
CPT/HCPCS: 36415; 80053; 80307; 80320; 82570; 84156; 84550; 85025; 85610; 85730

== ENCOUNTER 2024-10-27 08:22 | Observation (INO) | payer MEDICAID ==
[~2024-10-27 08:22] MED LIST changes: +CEPH250C PO; +ZOFR4T PO
--- NOTE | 2024-10-31 09:09 | DVH ---
BIOPHYSICAL PROFILE HISTORY: PIH Comparison Study: 10/28/2024 TECHNIQUE: Multiple real-time grayscale sonographic images through the gravid uterus of the fetus wi th duplex Doppler color flow and M-mode spectral analysis FINDINGS: BIOPHYSICAL PROFILE: breathing score: 2 movement score: 2 tone score: 2 Quantitative BALWINDER score: 2 (BALWINDER: 18.9 Cm.) Total score: 8 The cervix is not visualized Single live fetus in cephalic presentation. heart rate 159 beats per minute. Posterior placenta without previa or abruption IMPRESSION: Biophysical profile score: 8
--- NOTE | 2024-11-01 07:54 | DVHDS2 ---
Physician Discharge Progress N Final Diagnosis: pih Operations or Procedures: Operations or Procedures nst,sono Condition on Discharge: Good Disposition: Home Discharge Instructions: Diet: Regular Activity: No Restrictions, As Tolerated Medications: na Follow Up Care: Specialist: 4d Discharge Statement: "Patient was advised to return to the ER or call 911 if any headaches, dizziness, shortness of breath, chest pain, abdominal pain, bleeding, fevers, or worsening of medical condition. Patient was counseled about treatment plan, medications, possible side effects, patientverbalized understanding. All questions were answered to the best of my ability. This discharge took greater then 30 minutes in planning, reviewing documentation, counseling the patient, and discussing with other team members." SUSAN RICHARDS DO Nov 01, 2024 07:54
== END 2024-10-31 10:35 | disposition home or self-care (01) ==
LOC: LDRP 10-31 08:26 → UNDOADMOB 10-31 08:26 → LDRP 10-31 08:35
PROVIDERS: ADMIT Obstetrics & Gynecology; ATTEND Obstetrics & Gynecology
DX: O13.3 Gestational [pregnancy-induced] hypertension without significant proteinuria, third trimester (principal); O26.893 Other specified pregnancy related conditions, third trimester; R51.9 Headache, unspecified; Z3A.35 35 weeks gestation of pregnancy; Z79.899 Other long term (current) drug therapy
CPT/HCPCS: 59025; 76818; 81002; 94760; G0378

== ENCOUNTER 2024-10-31 11:03 | Observation (INO) | payer MEDICAID ==
[~2024-10-31 11:03] MED LIST changes: -CEPH250C PO; -ZOFR4T PO
[2024-11-03 12:25] LABS: Urine Bacteria FEW /hpf (None Seen); Urine Blood Negative /uL (Negative); Urine Clarity Turbid (Clear); Urine Color Light-Yellow (Yellow); Urine Protein, UAD Negative (Negative); Urine Specific Gravity 1.013 (1.001-1.035); Urine Squamous Epithelial Cell FEW /hpf (<5); Urine Urobilinogen Normal (Negative); Urine WBC 5 /hpf (0 - 5)
[2024-11-03 12:35] LABS: Protein, Urine 18.3 mg/dL (1-14)
[2024-11-03 12:37] LABS: Creatinine, Urine 164.22 mg/dL (30.0-125.0); Urine Protein/Creatinine Ratio 0.11
--- NOTE | 2024-11-03 13:12 | DVH ---
Procedure: US BIOPHYSICAL PROFILE 11/03/2024 12:37 PM Indication: PIH Comparison: US BIOPHYSICAL PROFILE on DOS: 10/31/24, US BIOPHYSICAL PROFILE on DOS: 10/27/24, US BIOP HYSICAL PROFILE on DOS: 10/24/24 Technique: Sonogram of gravid uterus utilizing grayscale and color techniques. FINDINGS: Single living intrauterine gestation. Presentation: Cephalic Placenta: Posterior heart rate: 167 bpm BALWINDER: 11.9 cm, DVP: 3.7 cm Maternal cervix: Not visualized Biophysical Profile: breathing score: 2 movement score: 2 tone: 2 Quantitative BALWINDER score: 2 Total score: 8/8 IMPRESSION: 1. Single living as above. 2. Biophysical profile score: 8/8.
--- NOTE | 2024-11-04 10:35 | DVHDS2 ---
Physician Discharge Progress N Final Diagnosis: PIH Operations or Procedures: Operations or Procedures NST,SONO Condition on Discharge: Good Disposition: Home Discharge Instructions: Diet: Regular Activity: No Restrictions, As Tolerated Medications: NA Follow Up Care: Specialist: 3D Discharge Statement: "Patient was advised to return to the ER or call 911 if any headaches, dizziness, shortness of breath, chest pain, abdominal pain, bleeding, fevers, or worsening of medical condition. Patient was counseled about treatment plan, medications, possible side effects, patientverbalized understanding. All questions were answered to the best of my ability. This discharge took greater then 30 minutes in planning, reviewing documentation, counseling the patient, and discussing with other team members." SUSAN RICHARDS DO Nov 04, 2024 10:35
== END 2024-11-03 13:32 | disposition home or self-care (01) ==
LOC: LDRP 11:03 → UNDOADMOB 11:03 → UNDODISOB 13:32 → UNDOADMOB 11-03 10:48 → LDRP 11-03 10:48 → UNDODISOB 11-03 13:32
PROVIDERS: ADMIT Obstetrics & Gynecology; ATTEND Obstetrics & Gynecology
DX: O13.3 Gestational [pregnancy-induced] hypertension without significant proteinuria, third trimester (principal); Z3A.35 35 weeks gestation of pregnancy; Z79.899 Other long term (current) drug therapy
CPT/HCPCS: 59025; 76818; 81001; 81002; 82570; 84156; 94760; G0378

== ENCOUNTER 2024-11-07 08:05 | Observation (INO) | payer MEDICAID ==
--- NOTE | 2024-11-07 12:59 | DVH ---
BIOPHYSICAL PROFILE HISTORY: PIH TECHNIQUE: Multiple transabdominal real-time grayscale sonographic images through the gravid uterus of the fetus with duplex Doppler color flow and M-mode spectral analysis FINDINGS: BIOPHYSICAL PROFILE: breathing score: 2 movement score: 2 tone score: 2 Quantitative BALWINDER score: 2 (BALWINDER: 12.6 Cm.) Total score: 8 The cervix not well visualized. Single live fetus in cephalic presentation. heart rate 153 beats per minute. Posterior placenta without previa or abruption IMPRESSION: Biophysical profile score: 8
--- NOTE | 2024-11-07 13:04 | DVHDS2 ---
Physician Discharge Progress N Final Diagnosis: gest htn Operations or Procedures: Operations or Procedures nst,sono Condition on Discharge: Good Disposition: Home Discharge Instructions: Diet: Regular Activity: No Restrictions, As Tolerated Medications: na Follow Up Care: Specialist: 3d Discharge Statement: "Patient was advised to return to the ER or call 911 if any headaches, dizziness, shortness of breath, chest pain, abdominal pain, bleeding, fevers, or worsening of medical condition. Patient was counseled about treatment plan, medications, possible side effects, patientverbalized understanding. All questions were answered to the best of my ability. This discharge took greater then 30 minutes in planning, reviewing documentation, counseling the patient, and discussing with other team members." SUSAN RICHARDS DO Nov 07, 2024 13:04
== END 2024-11-07 12:58 | disposition home or self-care (01) ==
LOC: UNDOADMOB 11:34 → LDRP 11:34 → UNDODISOB 12:58
PROVIDERS: ADMIT Obstetrics & Gynecology; ATTEND Obstetrics & Gynecology
DX: O13.3 Gestational [pregnancy-induced] hypertension without significant proteinuria, third trimester (principal); Z3A.36 36 weeks gestation of pregnancy; Z79.899 Other long term (current) drug therapy; Z98.890 Other specified postprocedural states
CPT/HCPCS: 59025; 76818; 81002; 94760; G0378

== ENCOUNTER 2024-11-14 13:21 | Observation (INO) | payer MEDICAID ==
--- NOTE | 2024-11-14 14:52 | DVH ---
BIOPHYSICAL PROFILE HISTORY: PIH TECHNIQUE: Multiple transabdominal real-time grayscale sonographic images through the gravid uterus of the fetus with duplex Doppler color flow and M-mode spectral analysis FINDINGS: BIOPHYSICAL PROFILE: breathing score: 2 movement score: 2 tone score: 2 Quantitative BALWINDER score: 2 (BALWINDER: 8.8 Cm.) Total score: 8 The cervix is not visualized Single live fetus in cephalic presentation. heart rate 153 beats per minute. Grade 2 fundal placenta without previa or abruption IMPRESSION: Biophysical profile score: 8
[2024-11-14] MEDS ORDERED: LABE300T5 PO (15:37)
[2024-11-14 17:03] LABS: Basophils # (auto) 0 10 ^3/uL (0-0.2); Basophils % (auto) 0.4 % (0.0-2.0); Eosinophils # (auto) 0.1 10 ^3/uL (0-0.8); Eosinophils % (auto) 0.7 % (0.0-7.0); Hematocrit 37.1 % (36.0-46.0); Hemoglobin 12.3 g/dL (12.2-16.2); Lymphocytes # (auto) 1.2 10 ^3/uL (0.4-5.4); Lymphocytes % (auto) 14.2 % (10.0-50.0); Mean Corpuscular Hemoglobin 26.1 pg (28.0-32.0); Monocytes # (auto) 0.4 10 ^3/uL (0-1.3); Monocytes % (auto) 4.1 % (0.0-12.0); Neutrophils # (auto) 6.8 10 ^3/uL (1.6-8.6); Neutrophils % (auto) 80.6 % (37.0-80.0); Platelet Count (auto) 215 10^3/uL (140-450); White Blood Cell 8.5 10^3/uL (4.4-10.8)
[2024-11-14 17:18] LABS: INR 0.92 (0.9-1.15); Partial Thromboplastin Time 27.3 SEC (24.5-34.5); Prothrombin Time 9.8 sec (9.3-11.8)
[2024-11-14 17:22] LABS: Alanine Aminotransferase 13 U/L (7-40); Albumin 3.8 g/dL (3.2-4.8); Anion Gap 9 (5-15); Aspartate Aminotransferase 13 U/L (13-40); Bilirubin, Total 0.3 mg/dL (0.2-1.0); Calcium 9.7 mg/dL (8.7-10.4); Carbon Dioxide 22 mmol/L (20-31); Glucose 89 mg/dL (74-106); Potassium 3.8 mmol/L (3.5-5.1); Sodium 140 mmol/L (136-145); Total Protein 6.4 g/dL (5.7-8.2); Uric Acid 4.9 mg/dL (3.1-7.8)
[2024-11-14 17:25] LABS: Alkaline Phosphatase 152 U/L (46-116); BUN/Creatinine Ratio 8.8 (10.0-20.0); Blood Urea Nitrogen < 5 mg/dL (9-23); Chloride 109 mmol/L (98-107)
[2024-11-14 17:36] LABS: Protein, Urine 11.9 mg/dL (1-14)
[2024-11-14 17:37] LABS: Urine Bacteria MOD /hpf (None Seen); Urine Blood Negative /uL (Negative); Urine Clarity Turbid (Clear); Urine Color Colorless (Yellow); Urine Protein, UAD Negative (Negative); Urine Specific Gravity 1.012 (1.001-1.035); Urine Squamous Epithelial Cell MOD /hpf (<5); Urine Urobilinogen Normal (Negative); Urine WBC 12 /hpf (0 - 5)
[2024-11-14 17:39] LABS: Creatinine, Urine 71.93 mg/dL (30.0-125.0); Urine Protein/Creatinine Ratio 0.17
[2024-11-14 17:43] LABS: Amphetamine Screen, Urine Neg (NEGATIVE); Barbiturate Scree,Urine Neg (NEGATIVE); Benzodiazephine Screen, Urine Neg (NEGATIVE); Cannabinoid Screen, Urine Neg (NEGATIVE); Cocaine Screen, Urine Neg (NEGATIVE); Opiate Scree,Urine Neg (NEGATIVE); Phencyclidine Screen, Urine Neg (NEGATIVE)
--- NOTE | 2024-11-15 18:12 | DVHDS2 ---
Physician Discharge Progress N Final Diagnosis: pih Operations or Procedures: Operations or Procedures nst,sono Condition on Discharge: Good Disposition: Home Discharge Instructions: Diet: Regular Activity: No Restrictions, As Tolerated Medications: na Follow Up Care: Specialist: 1d Discharge Statement: "Patient was advised to return to the ER or call 911 if any headaches, dizziness, shortness of breath, chest pain, abdominal pain, bleeding, fevers, or worsening of medical condition. Patient was counseled about treatment plan, medications, possible side effects, patientverbalized understanding. All questions were answered to the best of my ability. This discharge took greater then 30 minutes in planning, reviewing documentation, counseling the patient, and discussing with other team members." SUSAN RICHARDS DO Nov 15, 2024 18:12
== END 2024-11-14 18:00 | disposition home or self-care (01) ==
LOC: LDRP 13:21
PROVIDERS: ADMIT Obstetrics & Gynecology; ATTEND Obstetrics & Gynecology
DX: O13.3 Gestational [pregnancy-induced] hypertension without significant proteinuria, third trimester (principal); Z98.890 Other specified postprocedural states; Z79.899 Other long term (current) drug therapy; Z3A.37 37 weeks gestation of pregnancy
CPT/HCPCS: 36415; 59025; 76818; 80053; 80307; 81001; 81002; 82570; 84156; 84550; 85025; 85610; 85730; 94760; G0378

== ENCOUNTER 2024-11-16 13:53 | Observation (INO) | payer MEDICAID ==
[~2024-11-16] VITALS: Ht 168.9 cm; Wt 117.9 kg
[~2024-11-16 13:53] MED LIST changes: +LABE300T5 PO
--- NOTE | 2024-11-16 16:46 | DVH ---
Procedure: US BIOPHYSICAL PROFILE 11/16/2024 04:02 PM Indication: PIH Comparison: US BIOPHYSICAL PROFILE on DOS: 11/14/24, US BIOPHYSICAL PROFILE on DOS: 11/07/24, US BIOPHY SICAL PROFILE on DOS: 11/03/24 Technique: Sonogram of gravid uterus utilizing grayscale and color techniques. FINDINGS: Single living intrauterine gestation. Presentation: Cephalic Placenta: Posterior heart rate: 157 bpm BALWINDER: 8.9 cm, DVP: 4.2 cm Maternal cervix: Not visualized Biophysical Profile: breathing score: 2 movement score: 2 tone: 2 Quantitative BALWINDER score: 2 Total score: 8/8 IMPRESSION: 1. Single living as above. 2. Biophysical profile score: 8/8.
[2024-11-16] MEDS: LABETALOL HCL 200 MG TAB PO ONE (17:34)
[2024-11-16 19:17] LABS: Basophils # (auto) 0.1 10 ^3/uL (0-0.2); Basophils % (auto) 0.8 % (0.0-2.0); Hemoglobin 11.7 g/dL (12.2-16.2); Lymphocytes # (auto) 1.4 10 ^3/uL (0.4-5.4); Lymphocytes % (auto) 15.1 % (10.0-50.0); Neutrophils # (auto) 7.2 10 ^3/uL (1.6-8.6); Red Cell Distribution Width 15.7 % (11.8-14.3)
[2024-11-16 19:19] LABS: Eosinophils # (auto) 0.1 10 ^3/uL (0-0.8); Eosinophils % (auto) 0.7 % (0.0-7.0); Hematocrit 34.6 % (36.0-46.0); Mean Corpuscular Hemoglobin 26.9 pg (28.0-32.0); Mean Corpuscular Hgb Conc. 33.8 g/dL (32.0-36.0); Mean Corpuscular Volume 79.6 fL (80.0-100.0); Monocytes # (auto) 0.4 10 ^3/uL (0-1.3); Monocytes % (auto) 4.9 % (0.0-12.0); Neutrophils % (auto) 78.5 % (37.0-80.0); Nucleated Red Blood Cells % 0.1 %; Platelet Count (auto) 205 10^3/uL (140-450); Red Blood Cells 4.35 10^6/uL (4.0-5.20); White Blood Cell 9.2 10^3/uL (4.4-10.8)
[2024-11-16 19:29] LABS: Urine Bacteria FEW /hpf (None Seen); Urine Blood Negative /uL (Negative); Urine Clarity Clear (Clear); Urine Color Light-Yellow (Yellow); Urine Protein, UAD Negative (Negative); Urine Specific Gravity 1.012 (1.001-1.035); Urine Squamous Epithelial Cell FEW /hpf (<5); Urine Urobilinogen Normal (Negative); Urine WBC 4 /hpf (0 - 5)
[2024-11-16 19:31] LABS: INR 0.93 (0.9-1.15); Partial Thromboplastin Time 23.1 SEC (24.5-34.5); Prothrombin Time 9.9 sec (9.3-11.8)
[2024-11-16 19:32] LABS: Albumin 3.7 g/dL (3.2-4.8); Anion Gap 9 (5-15); Aspartate Aminotransferase 13 U/L (13-40); Calcium 9.8 mg/dL (8.7-10.4); Potassium 3.6 mmol/L (3.5-5.1); Sodium 137 mmol/L (136-145); Total Protein 6.6 g/dL (5.7-8.2)
[2024-11-16 19:34] LABS: Carbon Dioxide 20 mmol/L (20-31); Chloride 108 mmol/L (98-107); Glucose 68 mg/dL (74-106)
[2024-11-16 19:35] LABS: Alanine Aminotransferase < 9 U/L (7-40); Alkaline Phosphatase 149 U/L (46-116); BUN/Creatinine Ratio 8.1 (10.0-20.0); Bilirubin, Total 0.3 mg/dL (0.2-1.0); Blood Urea Nitrogen < 5 mg/dL (9-23)
[2024-11-16 19:40] LABS: Protein, Urine 9.2 mg/dL (1-14)
[2024-11-16 19:42] LABS: Amphetamine Screen, Urine Neg (NEGATIVE)
[2024-11-16 19:43] LABS: Creatinine, Urine 74.26 mg/dL (30.0-125.0); Urine Protein/Creatinine Ratio 0.12
[2024-11-16 19:45] LABS: Barbiturate Scree,Urine Neg (NEGATIVE); Benzodiazephine Screen, Urine Neg (NEGATIVE); Cannabinoid Screen, Urine Neg (NEGATIVE); Cocaine Screen, Urine Neg (NEGATIVE); Opiate Scree,Urine Neg (NEGATIVE); Phencyclidine Screen, Urine Neg (NEGATIVE)
--- NOTE | 2024-11-17 14:34 | DVHDS2 ---
Physician Discharge Progress N Final Diagnosis: poih Operations or Procedures: Operations or Procedures nst,sono Condition on Discharge: Good Disposition: Home Discharge Instructions: Diet: Regular Activity: No Restrictions, As Tolerated Follow Up/Referral: [facility] Wednesday[facility]17/24 Medications: PLease start and continue taking all prescribed medications as directed Follow Up Care: Specialist: 1d Discharge Statement: "Patient was advised to return to the ER or call 911 if any headaches, dizziness, shortness of breath, chest pain, abdominal pain, bleeding, fevers, or worsening of medical condition. Patient was counseled about treatment plan, medications, possible side effects, patientverbalized understanding. All questions were answered to the best of my ability. This discharge took greater then 30 minutes in planning, reviewing documentation, counseling the patient, and discussing with other team members." SUSAN IRCHARDS DO Nov 17, 2024 14:34
== END 2024-11-16 20:08 | disposition home or self-care (01) ==
LOC: LDRP 15:45
PROVIDERS: ADMIT Obstetrics & Gynecology; ATTEND Obstetrics & Gynecology
DX: O13.3 Gestational [pregnancy-induced] hypertension without significant proteinuria, third trimester (principal); O62.9 Abnormality of forces of labor, unspecified; Z3A.37 37 weeks gestation of pregnancy; Z79.899 Other long term (current) drug therapy
CPT/HCPCS: 36415; 59025; 76818; 80053; 80307; 81001; 81002; 82570; 84156; 84550; 85025; 85610; 85730; 94760; G0378

== ENCOUNTER 2024-11-17 08:15 | Inpatient (IN) | payer MEDICAID ==
[2024-11-17] VITALS (22 sets, daily range): BP systolic 114–180; BP diastolic 58–118; PULSE 74–95; RESP 12–20; TEMP 98–98.2; O2SAT 91–100
[~2024-11-17] VITALS: Ht 168.9 cm; Wt 117.9 kg
[2024-11-17] MEDS ORDERED: LIDOCAINE 2%HCL (LOCAL ANESTH.) INJ 20ML MDV IJ PRN (10:00)
[2024-11-17] MEDS: LACT. RINGERS/OXYTOCIN 20UNITS 500 ML IV ONE ×2 (10:00→10:30)
[2024-11-17 10:02] LABS: Basophils # (auto) 0 10 ^3/uL (0-0.2); Eosinophils # (auto) 0.1 10 ^3/uL (0-0.8); Lymphocytes # (auto) 1.1 10 ^3/uL (0.4-5.4); Neutrophils # (auto) 6.1 10 ^3/uL (1.6-8.6)
[2024-11-17 10:04] LABS: Basophils % (auto) 0.4 % (0.0-2.0); Eosinophils % (auto) 0.7 % (0.0-7.0); Hematocrit 32.5 % (36.0-46.0); Lymphocytes % (auto) 14.1 % (10.0-50.0); Mean Corpuscular Hemoglobin 26.6 pg (28.0-32.0); Mean Corpuscular Volume 78.4 fL (80.0-100.0); Monocytes # (auto) 0.5 10 ^3/uL (0-1.3); Neutrophils % (auto) 78.8 % (37.0-80.0); Nucleated Red Blood Cells % 0.1 %; Platelet Count (auto) 202 10^3/uL (140-450); Red Blood Cells 4.15 10^6/uL (4.0-5.20); Red Cell Distribution Width 16.2 % (11.8-14.3); White Blood Cell 7.7 10^3/uL (4.4-10.8)
[2024-11-17 10:17] LABS: INR 0.92 (0.9-1.15); Partial Thromboplastin Time 27.4 SEC (24.5-34.5); Prothrombin Time 9.8 sec (9.3-11.8)
[2024-11-17] MEDS: LACTATED RINGER'S 1,000 ML IV SCH (10:19)
[2024-11-17] MEDS: MAGNESIUM SULFATE 100 ML IV ONE (10:22)
[2024-11-17 10:23] LABS: Alanine Aminotransferase 10 U/L (7-40); Albumin 3.4 g/dL (3.2-4.8); Anion Gap 5 (5-15); Aspartate Aminotransferase 17 U/L (13-40); BUN/Creatinine Ratio 7.4 (10.0-20.0); Calcium 9.5 mg/dL (8.7-10.4); Carbon Dioxide 25 mmol/L (20-31); Glucose 77 mg/dL (74-106); Potassium 4.1 mmol/L (3.5-5.1); Sodium 140 mmol/L (136-145)
[2024-11-17 10:24] LABS: Total Protein 5.8 g/dL (5.7-8.2)
--- NOTE | 2024-11-17 10:34 | DVHHP2 ---
OB CC & HPI Date Date of Admission: Nov 17, 2024 Patient Identification: : 1 Para: 0 EGA: 37.3 Chief Complaints: Reason for admission: induction of labor Indication for induction: medical complication (Severe Pre-eclampsia) History of Present Complaints 29y G1Po IUP 37+ wk admitted with severe HTN, SBP 160/110. Patient asymptomatic. Was started on PO Labetalol 300mg BID last week by her primary OB Her BP noted to be elevated despite medication use and NST shows intermittent variable FHR decelerations (Category II) She ia admitted for medically indicated induction of labor. Past Medical History Cardiac: No pertinent Hx Pulmonary: No pertinent Hx Central Nervous System: No pertinent Hx GI: No pertinent Hx Hemotology/Oncology: No pertinent Hx Hepatobiliary: No pertinent Hx Psychiatric: No pertinent Hx Musculoskeletal: No pertinent Hx Rheumotologic: No pertinent Hx Infectious Disease: No peritnent Hx ENT: No pertinent Hx Renal/: No pertinent Hx Endocrine: No pertinent Hx Dermatology: No pertinent Hx Past Surgical History: No pertinent Hx OB History OB History Care: Good Care Ultrasounds: Normal mid trimester US Obstetrical Complications: Pre-eclampsia Medical Complications: None Allergies: Coded Allergies: NO KNOWN ALLERGIES (Unverified , 05/01/24) Home Meds Active Scripts Labetalol Hcl (Labetalol Hcl) 100 Mg Tab, 1 TAB PO BID, #60 TAB 2 Refills Prov:KRISTIN YODER CN 10/24/24 Reported Medications Labetalol Hcl (Labetalol Hcl) 300 Mg Tab, 300 MG PO BID for 30 Days, MG 11/14/24 Vit W/ Ferrous Fumara ( One Daily) Daily Tab, 1 TAB PO DAILY, #90 TAB 3 Refills 10/14/24 Current Medications Current Medications Medications (Trade) Dose Ordered Sig/Reilly Route PRN Reason Start Time Stop Time Status Last Admin Tejal Mcgee (Tucks) 1 pad PRN PRN TOP PERINEAL AREA DISCOMFORT 11/17/24 10:00 Sodium Lauryl Sulfate (Phisoderm) 240 ml PRN PRN TOP PERINEAL AREA DISCOMFORT 11/17/24 10:00 Benzocaine (Dermoplast) 1 applic PRN PRN TOP PERINEAL AREA DISCOMFORT 11/17/24 10:00 Lidocaine HCl (Xylocaine) 20 ml ONCE PRN IJ PERINEAL AREA DISCOMFORT 11/17/24 10:00 Lactated Ringer's 1,000 ml @ 75 mls/hr [id number] IV 11/17/24 10:00 11/17/24 10:19 Magnesium Sulfate 1,000 ml @ 50 mls/hr Q20H IV 11/17/24 10:00 Review of Systems Constitutional: No symptom reported Ears, Nose, & Throat: No symptom reported Eyes: No symptom reported Pulmonary/Respiratory: No symptom reported Cardiovascular: No symptom reported Gastrointestinal: No symptom reported Genitourinary: No symptom reported Musculoskeletal: No symptom reported Skin: No symptom reported Psychiatric: No symptom reported Endocrine: No symptom reported Hemotologic/Lymphatic: No symptom reported OB Admission Exam Physical Exam Vitals: See EHR HEENT: NCAT Heart: Rhythm Normal Lungs: Clear Abdomen: Gravid Extremities: Normal Reflexes: Normal (+2/4 no clonus) Cervical Dilatation: Fingertip Effacement: 0% Station: -3 Membranes: Intact Heart Rate: 140's Accelerations: Accelerations Present Decelerations: Variable Decelerations Short Term Variability: Present Correction Variability: Average (6-25) Contractions on Admission: 6-10 Minutes Apart Intensity: Mild OB Plan Plan Admitting Diagnosis: IUP at 37+ wk, Induction of Labor for severe pre-eclampsia Plan: Induction Induction Methd: Misoprostol protocol Other Plan: Admit for medically indicated delivery due to severe HTN at Term (Pre-eclampsia) repeat PIH labs now Start Magnesium sulfate drip per protocol for seizure prophylaxis Cytotec induction per protocol Start IV labetalol per protocol PRN severe HTN SBP> 160 or DBP> 110 Plan of care discussed w/ patient and RYAN BANSAL DO Nov 17, 2024 10:34
[2024-11-17] MEDS: MAGNESIUM SULFATE 40MG/ML 1,000 ML IV SCH (10:43)
[2024-11-17] MEDS ORDERED: miSOPROStol 50 MCG per PRE-CUT 1/2 TAB PO PRN (10:45)
[2024-11-17 10:50] LABS: Alkaline Phosphatase 142 U/L (46-116); Bilirubin, Total 0.2 mg/dL (0.2-1.0); Blood Urea Nitrogen 5 mg/dL (9-23); Chloride 110 mmol/L (98-107)
[2024-11-17] MEDS: WITCH HAZEL-GLYCERIN PAD TOP PRN (10:50)
[2024-11-17] MEDS: PHISODERM TOP SOLN 240ML BTL TOP PRN (10:50)
[2024-11-17] MEDS: DERMOPLAST 60ML BOTTLE TOP PRN (10:50)
[2024-11-17] MEDS: LABETALOL HCL 20 MG/4 ML VL IV ONE ×2 (11:13→12:10)
[2024-11-17 11:58] LABS: Amphetamine Screen, Urine Neg (NEGATIVE); Barbiturate Scree,Urine Neg (NEGATIVE); Benzodiazephine Screen, Urine Neg (NEGATIVE); Cannabinoid Screen, Urine Neg (NEGATIVE); Cocaine Screen, Urine Neg (NEGATIVE); Opiate Scree,Urine Neg (NEGATIVE); Phencyclidine Screen, Urine Neg (NEGATIVE)
[2024-11-17 12:42] LABS: Urine Bacteria FEW /hpf (None Seen); Urine Blood Negative /uL (Negative); Urine Clarity Turbid (Clear); Urine Protein, UAD Negative (Negative); Urine Specific Gravity 1.012 (1.001-1.035); Urine Squamous Epithelial Cell MOD /hpf (<5); Urine Urobilinogen Normal (Negative); Urine WBC 11 /hpf (0 - 5)
[2024-11-17 12:45] LABS: Urine Color Light-Yellow (Yellow)
[2024-11-17 13:38] LABS: Protein, Urine 11.3 mg/dL (1-14)
[2024-11-17 13:41] LABS: Creatinine, Urine 77.43 mg/dL (30.0-125.0); Urine Protein/Creatinine Ratio 0.15
[2024-11-17] MEDS: TETRACAINE 1% INJ 2 ML VIAL IJ ONE (14:21)
[2024-11-17] MEDS ORDERED: SODIUM CHLORIDE LOCK 10 ML ONE (14:23)
[2024-11-17] MEDS ORDERED: fentaNYL CITRATE 100 MCG/2 ML VL ONE (14:23)
[2024-11-17] MEDS ORDERED: oxyTOCIN 10 UNIT/ML 10ML VIAL ONE (14:23)
[2024-11-17] MEDS ORDERED: BUPIVACAINE/DEXTROSE MPF 0.75% 2 ML AMP IT ONE (14:23)
[2024-11-17] MEDS ORDERED: MORPHINE SULF PF 5 MG/10 ML VIAL ONE (14:23)
[2024-11-17] MEDS ORDERED: MIDAZOLAM HCL 2MG/2ML 2ml VIAL (1mg/ml) ONE (14:23)
[2024-11-17] MEDS ORDERED: ONDANSETRON HCL 4 MG/2 ML VIAL ONE (14:23)
[2024-11-17] MEDS: ceFAZolin 2 GM/D5W50ml 50 ML IV ONE (14:35)
--- NOTE | 2024-11-17 15:14 | DVHPN2 ---
OB Labor Progress Note Date and Time Seen Date Seen: Nov 17, 2024 Time Seen: 15:11 Subjective Subjective Comment Patient with SEVERE HTN unable to control with multiple doses of IV LABETALOL She remains asymptomatic Cervix is closed, unfavorable for induction Objective Vital Signs BP's > 160/110, please see EHR Monitoring Method Monitoring Method: External Heart Rate Heart Rate Baseline: 140 Heart Rate Variability: Moderate Presence of FHR Accelerations: Yes Presence of FHR Decelerations: No Membranes Membranes: Intact Lab Results Lab Results Vital Signs Date Time Temp Pulse Resp B/P (MAP) Pulse Ox O2 Delivery O2 Flow Rate FiO2 11/17/24 12:10 87 173/95 11/17/24 10:22 18 100 Room Air Current Medications Medications (Trade) Dose Ordered Sig/Reilly Start Time Stop Time Status Last Admin Dose Admin Tejal Mcgee (Tucks) 1 pad PRN PRN 11/17/24 10:00 11/17/24 10:50 1 PAD Sodium Lauryl Sulfate (Phisoderm) 240 ml PRN PRN 11/17/24 10:00 11/17/24 10:50 240 ML Benzocaine (Dermoplast) 1 applic PRN PRN 11/17/24 10:00 11/17/24 10:50 1 APPLIC Lidocaine HCl (Xylocaine) 20 ml ONCE PRN 11/17/24 10:00 Oxytocin 500 ml @ 999 mls/hr Q31M ONCE 11/17/24 10:00 11/17/24 10:30 DC Oxytocin 500 ml @ 125 mls/hr Q4H ONCE 11/17/24 10:30 11/17/24 14:29 DC Lactated Ringer's 1,000 ml @ 75 mls/hr [id number] 11/17/24 10:00 11/17/24 10:19 75 MLS/HR Magnesium Sulfate 1,000 ml @ 50 mls/hr Q20H 11/17/24 10:00 11/17/24 10:43 50 MLS/HR Magnesium Sulfate 100 ml @ 300 mls/hr ONCE ONCE 11/17/24 10:00 11/17/24 10:19 DC 11/17/24 10:22 300 MLS/HR Labetalol HCl (Labetalol HCl) 20 mg ONCE ONCE 11/17/24 10:00 11/17/24 10:01 DC 11/17/24 11:13 20 MG Misoprostol (Cytotec) 50 mcg Q4HPRN PRN 11/17/24 10:45 Labetalol HCl (Labetalol HCl) 40 mg ONCE ONCE 11/17/24 11:30 11/17/24 12:05 DC 11/17/24 12:10 40 MG Labetalol HCl (Labetalol HCl) 80 mg Q2HPRN PRN 11/17/24 11:30 Labetalol HCl (Normodyne Tablet) 300 mg Q12HR 11/17/24 22:00 Cefazolin Sodium/ Dextrose 50 ml @ 50 mls/hr ONCE ONCE 11/17/24 14:15 11/17/24 15:14 11/17/24 14:35 50 MLS/HR Laboratory Tests Test 11/17/24 14:12 11/17/24 10:08 11/17/24 09:53 11/17/24 09:25 Range/Units Magnesium Lvl (Mg Sulfate Therapy) 3.90 L 4.0-7.1 mg/dL Rapid Plasma Reagin Pending Treponema pallidum Ab (TP-PA) Pending Hepatitis C Antibody Negative Negative Urine Color Light-yellow Yellow Urine Clarity Turbid H Clear Urine pH 6.0 5.0-9.0 Urine Specific [place] 1.012 1.001-1.035 Urine Protein Negative Negative Urine Ketones Negative Negative Urine Blood Negative Negative /uL Urine Nitrite Negative Negative Urine Bilirubin Negative Negative Urine Urobilinogen Normal Negative mg/dL Urine Leukocyte Esterase 2+ Negative /uL Urine RBC 2 0 - 4 /hpf Urine WBC 11 0 - 5 /hpf Urine Squamous Epithelial Cells Mod <5 /hpf Urine Bacteria Few H None Seen /hpf Urine Creatinine 77.43 30.0-125.0 mg/dL Urine Protein/Creatinine Ratio 0.15 Urine Glucose Normal Normal mg/dL Urine Total Protein 11.3 1-14 mg/dL Urine Opiates Screen Neg NEGATIVE Urine Fentanyl Screen Neg NEGATIVE Urine Barbiturates Screen Neg NEGATIVE Urine Phencyclidine Screen Neg NEGATIVE Urine Amphetamines Screen Neg NEGATIVE Urine Benzodiazepines Screen Neg NEGATIVE Urine Cocaine Screen Neg NEGATIVE Urine Cannabinoids Screen Neg NEGATIVE White Blood Count 7.7 4.4-10.8 10^3/uL Red Blood Count 4.15 4.0-5.20 10^6/uL Hemoglobin 11.0 L 12.2-16.2 g/dL Hematocrit 32.5 L 36.0-46.0 % Mean Corpuscular Volume 78.4 L 80.0-100.0 fL Mean Corpuscular Hemoglobin 26.6 L 28.0-32.0 pg Mean Corpuscular Hemoglobin Concent 34.0 32.0-36.0 g/dL Red Cell Distribution Width 16.2 H 11.8-14.3 % Platelet Count 202 140-450 10^3/uL Mean Platelet Volume 9.0 6.9-10.8 fL Neutrophils (%) (Auto) 78.8 37.0-80.0 % Lymphocytes (%) (Auto) 14.1 10.0-50.0 % Monocytes (%) (Auto) 6.0 0.0-12.0 % Eosinophils (%) (Auto) 0.7 0.0-7.0 % Basophils (%) (Auto) 0.4 0.0-2.0 % Neutrophils # (Auto) 6.1 1.6-8.6 10 ^3/uL Lymphocytes # (Auto) 1.1 0.4-5.4 10 ^3/uL Monocytes # (Auto) 0.5 0-1.3 10 ^3/uL Eosinophils # (Auto) 0.1 0-0.8 10 ^3/uL Basophils # (Auto) 0 0-0.2 10 ^3/uL Nucleated Red Blood Cells 0.1 % Prothrombin Time 9.8 9.3-11.8 sec Prothrombin Time INR 0.92 0.9-1.15 Activated Partial Thromboplast Time 27.4 24.5-34.5 SEC Sodium Level 140 136-145 mmol/L Potassium Level 4.1 3.5-5.1 mmol/L Chloride Level 110 H 98-107 mmol/L Carbon Dioxide Level 25 20-31 mmol/L Anion Gap 5 5-15 Blood Urea Nitrogen 5 L 9-23 mg/dL Creatinine 0.68 0.550-1.02 mg/dL Glomerular Filtration Rate Calc 122 >90 mL/min BUN/Creatinine Ratio 7.4 L 10.0-20.0 Serum Glucose 77 74-106 mg/dL Uric Acid 5.0 3.1-7.8 mg/dL Calcium Level 9.5 8.7-10.4 mg/dL Total Bilirubin 0.2 0.2-1.0 mg/dL Aspartate Amino Transferase (AST) 17 13-40 U/L Alanine Aminotransferase (ALT) 10 7-40 U/L Alkaline Phosphatase 142 H 46-116 U/L Total Protein 5.8 5.7-8.2 g/dL Albumin 3.4 3.2-4.8 g/dL Assessment Assessment IUP Early Term 37+ wk, Severe HTN, Gestational HTN vs Pre-eclampsia Plan Plan Discussed induction of labor vs 1' C/S In view of unfavorable cervix and very labile difficult to control BP's, C/S recommended patient agrees to proceed w/ R/B/A discussed and informed consent obtained. Plan discussed with: Patient, Other (RN, Anesthesiologist) RYAN OTTO DO Nov 17, 2024 15:14
[2024-11-17] MEDS ORDERED: ONDANSETRON HCL 4 MG/2 ML VIAL IV PRN (16:30)
[2024-11-17] MEDS: NALBUPHINE HCL 10 MG/1ml INJECTION SUBCUT ONE (16:30)
[2024-11-17] MEDS: ONDANSETRON HCL 4 MG/2 ML VIAL IV ONE (16:30)
[2024-11-17] MEDS ORDERED: DexAMETHasone SOD PHOS 10MG/1ML VIAL INJ IV PRN (16:30)
[2024-11-17] MEDS ORDERED: diphenhdrAMINE HCL 50 MG/1 ML VL IV PRN (16:30)
[2024-11-17] MEDS ORDERED: ACETAMINOPHEN IV 1000 MG/100ML (10MG/ML) IV PRN (16:30)
[2024-11-17] MEDS ORDERED: NALOXONE HCL 0.4 MG/ML VIAL IV PRN (16:30)
[2024-11-17] MEDS ORDERED: HYDROmorphone HCL 2 MG/ML VL/or syr IV PRN ×2 (16:30→17:15)
[2024-11-17] MEDS: LABETALOL HCL 20 MG/4 ML VL IV PRN (17:11)
[2024-11-17] MEDS ORDERED: MEPERIDINE HCL (25 MG/ML) 1ML VIAL IV PRN (17:15)
--- NOTE | 2024-11-17 17:21 | DVHOP ---
DATE OF SURGERY: 11/17/2024 PREOPERATIVE DIAGNOSES: * Early term 37 weeks 3 days. * Severe hypertension, preeclampsia versus gestational hypertension. FINAL DIAGNOSES: * Early term 37 weeks 3 days. * Severe hypertension, preeclampsia versus gestational hypertension. PROCEDURE PERFORMED: Primary low transverse section via Pfannenstiel skin incision. 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 TYPE OF ANESTHESIA: Spinal. ANESTHESIOLOGISTS: Dr. Meagan Lino and Dr. Colten Allred. INDICATIONS FOR PROCEDURE: The patient is a 29-year-old -Prydeinig female who presented with severely elevated blood pressures greater than 160/110. Her blood pressures were very labile, difficult to control with IV labetalol. The cervix was unfavorable for induction and given the unstable blood pressure, she was consented and recommended for primary section delivery. The patient agreed to proceed. The risks, benefits and alternatives of the surgery were discussed with the patient. Risks of scar, pain, bleeding, infection, injury to bowel, bladder, adjacent organs all discussed with the patient. DESCRIPTION OF FINDINGS: Delivery of a liveborn female , cephalic presentation, 1+ meconium fluid. Normal bilateral fallopian tubes, ovaries, normal-appearing placenta, 2-layer uterine closure. TECHNICAL PROCEDURE: After informed consent was obtained, the patient was taken to the operating room where her spinal anesthesia was found to be adequate. She was placed in the supine position with a slight leftward tilt. She was sterilely prepped and draped in the usual sterile fashion. A Pfannenstiel skin incision was made with the scalpel and the incision developed sharply to the underlying layer of fascia and peritoneum. Entry into the peritoneal cavity was performed bluntly. The peritoneal incision was extended superiorly and inferiorly with good visualization of the bladder. The Mick O retractor was placed into the incision. Using a second scalpel, the lower uterine segment was incised in a low transverse fashion. The incision was extended laterally using bandage scissors. The amniotic fluid membranes were then ruptured. Meconium fluid was noted as described above. The baby was in the cephalic presentation. The baby was delivered atraumatically. After delivery of the infant, the nose and mouth were suctioned with the bulb. The cord was clamped and cut after 60 seconds and the baby handed off to waiting pediatric team. Cord blood was obtained. The placenta was spontaneously delivered. The uterus could not be exteriorized due to maternal body habitus. The uterus was cleansed of all clots and debris using moist laparotomy sponges. Next, the uterine incision was repaired with #1 Stratafix in continuous running fashion in 2 layers with excellent tissue approximation and hemostasis obtained. The pericolic gutters and the cul-de-sac were cleared of all clots and debris. The abdomen was irrigated with sterile water. Hemostasis was confirmed. All instrumentation and retractors were removed from the patient's abdomen. We then proceeded to close the peritoneum using 2-0 Vicryl in continuous running fashion with good tissue approximation. The rectus fascia was closed with #1 Stratafix in continuous running fashion with good tissue approximation. The subcutaneous tissue was closed with 2-0 plain gut in interrupted fashion and the skin closed in subcuticular fashion using 3-0 Monocryl. The silk dressing was then placed over the incision. The patient tolerated the procedure well. Sponge, lap and needle counts were correct x 4. INTRAOPERATIVE COMPLICATIONS: None. ESTIMATED BLOOD LOSS: 600 mL. POSTOPERATIVE CONDITION: Stable. SPECIMENS: Cord blood and placenta. MEDICATIONS: The patient received 2 g of Ancef prior to skin incision and IV Pitocin at the time of cord clamp. DO BASILIA Roberto/GERALD TID: [id number] RECEIPT: [id number]
[2024-11-17] MEDS: hydrALAZINE HCL 20 MG/ML VL IV ONE (17:58)
[2024-11-17] MEDS: LABETALOL HCL 200 MG TAB PO SCH (18:14)
[2024-11-17] MEDS: ACETAMINOPHEN IV 1000 MG/100ML (10MG/ML) IV PRN (18:53)
[2024-11-18] VITALS (17 sets, daily range): BP systolic 100–149; BP diastolic 51–94; PULSE 74–91; RESP 16–20; TEMP 97.9–98.5; O2SAT 96–99
--- NOTE | 2024-11-18 02:56 | DVHPN2 ---
Progress Note Date Seen: Nov 18, 2024 Subjective POD#1 s/p 1' C/S for severe pre-eclampsia Pain controlled. Lochia minimal. no symptoms of headache or epigastric pain. vital signs Vital Sign Date Time Temp Pulse Resp B/P (MAP) Pulse Ox O2 Delivery O2 Flow Rate FiO2 11/18/24 00:30 20 97 Room Air 11/17/24 23:30 98.2 81 135/62 (86) 98.2 Total Intake and Output 11/17/24 11/17/24 11/18/24 15:00 23:00 07:00 Output Total 450 ml 150 ml Balance -450 ml -150 ml medications Current Medications Medications Dose Ordered Sig/Reilly Route Start Time Stop Time Status Last Admin Dose Admin Tejal Mcgee 1 pad PRN PRN TOP 11/17/24 10:00 11/17/24 10:50 1 PAD Sodium Lauryl Sulfate 240 ml PRN PRN TOP 11/17/24 10:00 11/17/24 10:50 240 ML Benzocaine 1 applic PRN PRN TOP 11/17/24 10:00 11/17/24 10:50 1 APPLIC Lidocaine HCl 20 ml ONCE PRN IJ 11/17/24 10:00 Lactated Ringer's 1,000 ml @ 75 mls/hr [id number] IV 11/17/24 10:00 11/17/24 18:53 75 MLS/HR Magnesium Sulfate 1,000 ml @ 50 mls/hr Q20H IV 11/17/24 10:00 11/17/24 10:43 50 MLS/HR Misoprostol 50 mcg Q4HPRN PRN PO 11/17/24 10:45 Labetalol HCl 80 mg Q2HPRN PRN IV 11/17/24 11:30 11/17/24 17:11 80 MG Diphenhydramine HCl 25 mg Q4HP PRN IV 11/17/24 16:30 Ondansetron HCl 4 mg Q4HP PRN IV 11/17/24 16:30 Ketorolac Tromethamine 30 mg Q6HP PRN IV 11/17/24 16:30 11/22/24 16:29 Acetaminophen 1,000 mg Q8HP PRN IV 11/17/24 18:30 11/18/24 14:01 11/17/24 18:53 1,000 MG Labetalol HCl 300 mg Q12H PO 11/18/24 06:00 laboratory and microbiology Laboratory Tests 11/17/24 09:25 Test 11/17/24 09:25 Range/Units Serum Glucose 77 74-106 mg/dL Objective O: AFeb VS stable, BP's normalized. Chest: heart and lung sounds normal. Abd soft, non-tender, fundus firm, BS, no rebound or guarding, Incision - dressing and incision clean, dry, intact Ext Neg Homans, Non-tender, edema Lochia - minimal Labs Reviewed Assessment/Plan 29y s/p 1' C/S Severe HTN, Pre-Eclampsia (improving) Plan: 1. Continue magnesium sulfate IV x 24h post delivery 2. Repeat CBC , CMP in a.m 3. Mag levels q 6h 4. D/C guthrie cath at 24h pp 5. regular diet 6. continue PO Labetalol 300mg PO BID for HTN Plan d/w patient and RN Plan discussed with: Patient, Other (RN, Anesthesiologist) RYAN OTTO DO Nov 18, 2024 02:56
[2024-11-18 04:42] LABS: Basophils # (auto) 0 10 ^3/uL (0-0.2); Eosinophils # (auto) 0.1 10 ^3/uL (0-0.8); Eosinophils % (auto) 0.8 % (0.0-7.0); Hemoglobin 10.7 g/dL (12.2-16.2); Lymphocytes # (auto) 0.9 10 ^3/uL (0.4-5.4); Monocytes # (auto) 0.3 10 ^3/uL (0-1.3); Neutrophils # (auto) 6.4 10 ^3/uL (1.6-8.6); White Blood Cell 7.8 10^3/uL (4.4-10.8)
[2024-11-18 04:44] LABS: Basophils % (auto) 0.5 % (0.0-2.0); Hematocrit 31.2 % (36.0-46.0); Mean Corpuscular Hgb Conc. 34.3 g/dL (32.0-36.0); Mean Corpuscular Volume 78.6 fL (80.0-100.0); Monocytes % (auto) 4.1 % (0.0-12.0); Neutrophils % (auto) 82.6 % (37.0-80.0); Platelet Count (auto) 190 10^3/uL (140-450); Red Blood Cells 3.96 10^6/uL (4.0-5.20)
[2024-11-18 04:59] LABS: Alanine Aminotransferase 10 U/L (7-40); Albumin 3.4 g/dL (3.2-4.8); Anion Gap 6 (5-15); Aspartate Aminotransferase 18 U/L (13-40); Bilirubin, Total 0.4 mg/dL (0.2-1.0); Carbon Dioxide 25 mmol/L (20-31); Chloride 106 mmol/L (98-107); Glucose 104 mg/dL (74-106); Sodium 137 mmol/L (136-145)
[2024-11-18 05:11] LABS: Alkaline Phosphatase 127 U/L (46-116); Blood Urea Nitrogen < 5 mg/dL (9-23); Calcium 8.3 mg/dL (8.7-10.4)
[2024-11-18] MEDS: LABETALOL HCL 200 MG TAB PO SCH (06:00)
[2024-11-18 08:06] LABS: RPR Non Reactive (Non Reactive)
[2024-11-18] MEDS: KETOROLAC TROMETH 30 MG/ML 1ML VIAL IV PRN (14:54)
[2024-11-18] MEDS ORDERED: BISACODYL 10 MG RECT SUPP PR PRN (19:30)
[2024-11-18] MEDS: IBUPROFEN 800 MG TAB PO PRN (19:41)
[2024-11-18] MEDS: SIMETHICONE 80 MG CHEWABLE TABLET PO SCH (22:26)
[2024-11-18] MEDS: DOCUSATE SOD 100 MG CAP PO SCH (22:26)
[2024-11-19] VITALS (7 sets, daily range): BP systolic 122–149; BP diastolic 54–89; PULSE 66–93; RESP 16–18; TEMP 98–98.8; O2SAT 98–100
[2024-11-19] MEDS: HYDROcodone-ACET 5/325MG TAB PO PRN ×2 (07:00→11:58)
--- NOTE | 2024-11-19 09:52 | DVHPN2 ---
Progress Note Date Seen: Nov 19, 2024 Subjective POD#2 s/p 1' C/S for Severe HTN at Term Doing well. No symptoms of pre-eclampsia, pain controlled 01/15 Lochia minimal. Denies N/V fever or chills. vital signs Vital Sign Date Time Temp Pulse Resp B/P (MAP) Pulse Ox O2 Delivery O2 Flow Rate FiO2 11/19/24 07:01 66 141/89 11/19/24 07:00 Room Air 11/19/24 07:00 98.2 16 99 98.2 Total Intake and Output 11/18/24 11/18/24 11/19/24 15:00 23:00 07:00 Output Total 450 ml 800 ml Balance -450 ml -800 ml medications Current Medications Medications Dose Ordered Sig/Reilly Route Start Time Stop Time Status Last Admin Dose Admin Tejal Mcgee 1 pad PRN PRN TOP 11/17/24 10:00 11/17/24 10:50 1 PAD Sodium Lauryl Sulfate 240 ml PRN PRN TOP 11/17/24 10:00 11/17/24 10:50 240 ML Benzocaine 1 applic PRN PRN TOP 11/17/24 10:00 11/17/24 10:50 1 APPLIC Lidocaine HCl 20 ml ONCE PRN IJ 11/17/24 10:00 Misoprostol 50 mcg Q4HPRN PRN PO 11/17/24 10:45 Labetalol HCl 80 mg Q2HPRN PRN IV 11/17/24 11:30 11/17/24 17:11 80 MG Diphenhydramine HCl 25 mg Q4HP PRN IV 11/17/24 16:30 Ondansetron HCl 4 mg Q4HP PRN IV 11/17/24 16:30 Labetalol HCl 300 mg Q12H PO 11/18/24 06:00 11/19/24 07:01 300 MG Docusate Calcium 240 mg DAILY PO 11/19/24 10:00 Docusate Sodium 100 mg Q12HR PO 11/18/24 22:00 11/18/24 22:26 100 MG Dimethicone 80 mg QID PO 11/18/24 22:00 11/19/24 05:55 80 MG Bisacodyl 10 mg DAILYP PRN DC 11/18/24 19:30 Ibuprofen 800 mg Q8HP PRN PO 11/18/24 19:30 11/18/24 19:41 800 MG Acetaminophen/ Hydrocodone Bitart 1 tab Q4HPRN PRN PO 11/18/24 19:30 11/19/24 07:00 1 TAB Acetaminophen/ Hydrocodone Bitart 2 tab Q4HPRN PRN PO 11/18/24 19:30 laboratory and microbiology Laboratory Tests 11/18/24 04:15 Test 11/18/24 04:15 Range/Units Serum Glucose 104 74-106 mg/dL Objective O: AFVSS Chest: heart and lung sounds normal. Abd soft, non-tender, fundus firm, BS, no rebound or guarding, Incision - dressing and incision clean, dry, intact Ext Neg Homans, Non-tender, edema Lochia - minimal Labs Reviewed Assessment/Plan POD#2 s/p 1' C/S Severe HTN, improving post delivery Plan: Possible D/C to home tomorrow morning if BP's remain stable Continue PO Labetalol 300mg PO BID Ambulate Pain control Plan discussed with: Patient, Other (RN, Anesthesiologist) RYAN OTTO DO Nov 19, 2024 09:52
[2024-11-19] MEDS: DOCUSATE CALCIUM 240 MG CAP PO SCH (10:10)
[2024-11-20 03:00] VITALS: BP 150/88; PULSE 90; RESP 18; TEMP 98.5; O2SAT 100
[2024-11-20] MEDS ORDERED: HYDR-4902 PO (07:02)
[2024-11-20] MEDS ORDERED: IBUP-1455 PO (07:02)
[2024-11-20 07:07] VITALS: BP 146/57; PULSE 92; RESP 18; TEMP 98.3; O2SAT 100
--- NOTE | 2024-11-20 08:14 | DVHDS2 ---
Discharge Summary Date of Admission Nov 17, 2024 at 09:45 Date of Discharge: Nov 20, 2024 Admitting Diagnosis Early Term , Severe HTN Pre-Eclampsia vs Gestational HTN Labs/Diagnostic Data: Laboratory Results Test 11/18/24 10:16 11/18/24 04:15 11/17/24 10:08 11/17/24 09:53 Magnesium Lvl (Mg Sulfate Therapy) 5.58 mg/dL (4.0-7.1) White Blood Count 7.8 10^3/uL (4.4-10.8) Red Blood Count 3.96 10^6/uL (4.0-5.20) Hemoglobin 10.7 g/dL (12.2-16.2) Hematocrit 31.2 % (36.0-46.0) Mean Corpuscular Volume 78.6 fL (80.0-100.0) Mean Corpuscular Hemoglobin 27.0 pg (28.0-32.0) Mean Corpuscular Hemoglobin Concent 34.3 g/dL (32.0-36.0) Red Cell Distribution Width 16.0 % (11.8-14.3) Platelet Count 190 10^3/uL (140-450) Mean Platelet Volume 8.7 fL (6.9-10.8) Neutrophils (%) (Auto) 82.6 % (37.0-80.0) Lymphocytes (%) (Auto) 12.0 % (10.0-50.0) Monocytes (%) (Auto) 4.1 % (0.0-12.0) Eosinophils (%) (Auto) 0.8 % (0.0-7.0) Basophils (%) (Auto) 0.5 % (0.0-2.0) Neutrophils # (Auto) 6.4 10 ^3/uL (1.6-8.6) Lymphocytes # (Auto) 0.9 10 ^3/uL (0.4-5.4) Monocytes # (Auto) 0.3 10 ^3/uL (0-1.3) Eosinophils # (Auto) 0.1 10 ^3/uL (0-0.8) Basophils # (Auto) 0 10 ^3/uL (0-0.2) Nucleated Red Blood Cells 0.0 % Sodium Level 137 mmol/L (136-145) Potassium Level 4.0 mmol/L (3.5-5.1) Chloride Level 106 mmol/L (98-107) Carbon Dioxide Level 25 mmol/L (20-31) Anion Gap 6 (5-15) Blood Urea Nitrogen < 5 mg/dL (9-23) Creatinine 0.71 mg/dL (0.550-1.02) Glomerular Filtration Rate Calc 119 mL/min (>90) BUN/Creatinine Ratio 7.0 (10.0-20.0) Serum Glucose 104 mg/dL (74-106) Calcium Level 8.3 mg/dL (8.7-10.4) Total Bilirubin 0.4 mg/dL (0.2-1.0) Aspartate Amino Transferase (AST) 18 U/L (13-40) Alanine Aminotransferase (ALT) 10 U/L (7-40) Alkaline Phosphatase 127 U/L (46-116) Total Protein 6.0 g/dL (5.7-8.2) Albumin 3.4 g/dL (3.2-4.8) Rapid Plasma Reagin Non reactive (Non Reactive) Hepatitis C Antibody Negative (Negative) Urine Color Light-yellow (Yellow) Urine Clarity Turbid (Clear) Urine pH 6.0 (5.0-9.0) Urine Specific [place] 1.012 (1.001-1.035) Urine Protein Negative (Negative) Urine Ketones Negative (Negative) Urine Blood Negative /uL (Negative) Urine Nitrite Negative (Negative) Urine Bilirubin Negative (Negative) Urine Urobilinogen Normal mg/dL (Negative) Urine Leukocyte Esterase 2+ /uL (Negative) Urine RBC 2 /hpf (0 - 4) Urine WBC 11 /hpf (0 - 5) Urine Squamous Epithelial Cells Mod /hpf (<5) Urine Bacteria Few /hpf (None Seen) Urine Creatinine 77.43 mg/dL (30.0-125.0) Urine Protein/Creatinine Ratio 0.15 Urine Glucose Normal mg/dL (Normal) Urine Total Protein 11.3 mg/dL (1-14) Urine Opiates Screen Neg (NEGATIVE) Urine Fentanyl Screen Neg (NEGATIVE) Urine Barbiturates Screen Neg (NEGATIVE) Urine Phencyclidine Screen Neg (NEGATIVE) Urine Amphetamines Screen Neg (NEGATIVE) Urine Benzodiazepines Screen Neg (NEGATIVE) Urine Cocaine Screen Neg (NEGATIVE) Urine Cannabinoids Screen Neg (NEGATIVE) Test 11/17/24 09:25 Prothrombin Time 9.8 sec (9.3-11.8) Prothrombin Time INR 0.92 (0.9-1.15) Activated Partial Thromboplast Time 27.4 SEC (24.5-34.5) Uric Acid 5.0 mg/dL (3.1-7.8) Other Laboratory Tests 11/18/24 04:15 Brief Hx & Hospital Course: Severe HTN SBP > 160 and DBP> 110, requiring multiple treatments with IV Labetalol Patient asymptomatic, PIH labs and urine prot/cr ratio WNL (negative) BP very labile, unable to be controlled safely to allow induction of labor for vaginal delivery patient underwent 1' C/Section, uneventful BP's elevated but better controlled w/ meds Denies any chest pain, headache, vision changes or epigastric pains post op Normal bowel/bladder function stable for discharge. Operations or Procedures 1' Low transv c/section Condition at Discharge: Stable Final Diagnosis/Problems List Severe HTN pre-eclampsia vs Gestational HTN s/p 1' C/Section Discharge Disposition: Home Discharge Instruct/Medications Diet: Regular Activity: Light activity Follow Up/Referral: [address] Mercado for BP check Medications: Labetalol 300mg PO BID, [place] 5mg, Ibuprofen 800mg PRN Discharge Statement: "Patient was advised to return to the ER or call 911 if any headaches, dizziness, shortness of breath, chest pain, abdominal pain, bleeding, fevers, or worsening of medical condition. Patient was counseled about treatment plan, medications, possible side effects, patientverbalized understanding. All questions were answered to the best of my ability. This discharge took greater then 30 minutes in planning, reviewing documentation, counseling the patient, and discussing with other team members." ASSESSMENT ASSESSMENT Assessment Severe HTN pre-eclampsia s/p 1' C/Section RYAN OTTO DO Nov 20, 2024 08:14
[2024-11-20 10:50] VITALS: BP 142/79; PULSE 94; RESP 18; TEMP 97.9; O2SAT 95
[2024-11-20] MEDS: TETANUS-DIPTH-ACEL PERTUSSIS 0.5ML SYR Tdap IM ONE (13:38)
[2024-11-20] MEDS ORDERED: CALCIUM CHLOR(10%) 100MG/ML 10ML SYRINGE IV ONE (14:19)
[2024-11-20 15:09] VITALS: BP 139/79; PULSE 88
== END 2024-11-20 14:20 | disposition home or self-care (01) | DRG 540 ==
LOC: LDRP 08:15 → UNDOADMOB 08:15 → INTOOBSV 09:45 → OBSVTOIN 09:45 → LDRP 14:52
PROVIDERS: ADMIT Obstetrics & Gynecology; ATTEND Obstetrics & Gynecology
PROC: 3E0DXGC Introduction of Other Therapeutic Substance into Mouth and Pharynx, External Approach (ICD-10-PCS; 2024-11-17)
PROC: 10D00Z1 Extraction of Products of Conception, Low, Open Approach (ICD-10-PCS; principal; 2024-11-17 14:58)
DX: O14.14 Severe pre-eclampsia complicating childbirth (principal); O61.0 Failed medical induction of labor; O77.0 Labor and delivery complicated by meconium in amniotic fluid; O76 Abnormality in fetal heart rate and rhythm complicating labor and delivery; Z37.0 Single live birth; Z3A.37 37 weeks gestation of pregnancy
CPT/HCPCS: 36415; 59025; 80053; 80307; 81001; 81002; 82570; 83735; 84156; 84550; 85025; 85610; 85730; 86592; 86780; 86803; 86850; 86900; 86901; 90715; 94760; 94762; 96360; 96361; 96365; 96366; 96372; 96374; 96375; G0378; J0131; J1885; J2250; J2405; J2590

== ENCOUNTER 2024-11-23 02:43 | Inpatient (IN) | payer MEDICAID ==
[~2024-11-23] VITALS: Ht 165.1 cm; Wt 119.7 kg
[~2024-11-23 02:43] MED LIST changes: +HYDR-4902 PO; +IBUP-1455 PO; -LABE100T7 PO
--- NOTE | 2024-11-23 03:28 | ED.PDOC ---
GI ASSESSMENT HPI Comments 29 year old female presents to the ED with a chief complaint of diffuse abdominal pain onset 11/23/2023 about 3 hours ago. Patient states she woke up today experiencing constant, diffuse abdominal pain, greatest in the lower abdomen, chest pain, nausea, vomiting, diarrhea, vaginal spotting. Patient had on 11/17/2024. At triage, patient was tachycardiac with a HR of 111. Denies fever, cough, congestion, dysuria, dizziness, headache. No other symptoms or modifying factors present at this time. Chief Complaint: Abdominal Pain Time Seen by MD: 03:17 Primary Care Provider: Nichol Harden Notes: Medications, Allergies Allergies: Coded Allergies: NO KNOWN ALLERGIES (Unverified , 05/01/24) Home Meds Active Scripts Ibuprofen Micronized (Ibuprofen) 800 Mg Tab, 800 MG PO Q8HP PRN, #40 TAB Prov:RYAN OTTO DO 11/20/24 Hydrocodone-Acetaminophen (Hydrocodone Bitartrate/AC 5-325 mg) 1 Tab Tab, 1 TAB PO Q6HPRN PRN, #20 TAB Prov:RYAN OTTO DO 11/20/24 Reported Medications Labetalol Hcl (Labetalol Hcl) 300 Mg Tab, 300 MG PO BID for 30 Days, MG 11/14/24 Vit W/ Ferrous Fumara ( One Daily) Daily Tab, 1 TAB PO DAILY, #90 TAB 3 Refills 10/14/24 Discontinued Scripts Labetalol Hcl (Labetalol Hcl) 100 Mg Tab, 1 TAB PO BID, #60 TAB 2 Refills Prov:KRISTIN YODER [facility] 10/24/24 Information Source: Patient Mode of Arrival: Ambulatory Timing: Hours Duration: Since onset Prehospital treatment: None Severity: Moderate Recent Hx of: Other ( 11/17/24) Pain Location: Diffuse Modifying Factors: Nothing Associated sign and symptoms: Nausea, Vomiting, Diarrhea, Abdominal Pain Past Medical History PAST MEDICAL HISTORY: Denies Surgical History: (11/17/2024) REACHER History: Other (Preeclampsia) Family History Family History: Reviewed,noncontributory to illness Social History Smoker: Non-Smoker Alcohol: Denies ETOH Use Drugs: Denies Drug Use Lives In: Home Constitutional: denies: chills, diaphoresis, fatigue, fever, malaise, sweats, weakness, others EENTM: denies: blurred vision, double vision, ear bleeding, ear discharge, ear drainage, ear pain, ear ringing, eye pain, eye redness, hearing loss, mouth pain, mouth swelling, nasal discharge, nose bleeding, nose congestion, nose pain, photophobia, tearing, throat pain, throat swelling, voice changes, others Respiratory: denies: cough, hemoptysis, orthopnea, SOB at rest, shortness of breath, SOB with excertion, stridor, wheezing, others Cardiovascular: reports: chest pain; denies: dizzy spells, diaphoresis, Dyspnea on exertion, edema, irregular heart beat, left arm pain, lightheadedness, palpitations, PND, syncope, others Gastrointestinal: reports: abdominal pain, diarrhea, nausea, vomiting; denies: abdomen distended, blood streaked bowels, constipated, dysphagia, difficulty swallowing, hematemesis, melena, poor appetite, poor fluid intake, rectal bleeding, rectal pain, others Genitourinary: reports: others (vaginal spotting); denies: abnormal vagina bleeding, burning, dyspareunia, dysuria, flank pain, frequency, hematuria, incontinence, pain, , vagina discharge, urgency Neurological: denies: dizziness, fainting, headache, left sided numbness, left sided weakness, numbness, paresthesia, pre-existing deficit, right sided numbness, right sided weakness, seizure, speech problems, tingling, tremors, weakness, others Musculoskeletal: denies: back pain, gout, joint pain, joint swelling, muscle pain, muscle stiffness, neck pain, others Integumetry: denies: bruises, change in color, change in hair/nails, dryness, laceration, lesions, lumps, rash, wounds, others Allergic/Immunocompromised: denies: Difficulty Healing, Frequent Infections, Hives, Itching, others Hematologic/Lymphatic: denies: anemia, blood clots, easy bleeding, easy bruising, swollen glands, others Endocrine: denies: excessive hunger, excessive sweating, excessive thirst, excessive urination, flushing, intolerance to cold, intolerance to heat, unexplained weight gain, unexplained weight loss, others Psychiatric: denies: anxiety, bipolar disorder, depression, hopeless, panic disorder, schizophrenia, sleepless, suicidal, others All Other Systems: Reviewed and Negative Physical Exam General Appearance: Mild Distress, Obese HEENT: Other (Unremarkable) Neck: Full Range of Motion, Normal Inspection Respiratory: Lungs Clear, No Accessory Muscle Use, No Respiratory Distress, Normal Breath Sounds Cardiovascular: No Edema, No JVD, Regular Rate/Rhythm Breast Exam: Deferred Gastrointestinal: Soft, Tenderness (Diffuse. Low transverse surgical wound appears clean, dry and intact without surrounding erythema, edema or discharge. There is wound site tenderness.) Genitalia: Deferred Pelvic: Deferred Rectal: Deferred Extremities: Normal inspection, Normal range of motion, Non-tender, No pedal edema Neurologic: Alert (Oriented x4), Normal Affect, Normal Mood, Other (Ambulatory without difficulty. No gross focal deficit.) Cerebellar Function: NOT DONE Reflexes: NOT DONE Skin: Dry, Normal Color, Warm Lymphatic: NOT DONE Was a procedure done? Was a procedure done?: No GI differential Dx Differential Diagnosis: Diverticular disease, Gastritis/PUD, Gastroenteritis, Hepatitis, Inflammatory BD, Ischemic Bowel, Pancreatitis, UTI, Dehydration, Diabetes/ DKA, Electrolyte Imbalance, Food Poisoning, Bacterial, Viral, Hypovolemia, Renal Failure, Anemia, Stress Ulcer, Kidney Stone Other Differential Diagnosis Retained products of conception, postoperative wound infection, intra-abdominal abscess, eclampsia, among others X-Ray, Labs, Meds, VS Vital Signs Date Time Temp Pulse Resp B/P (MAP) Pulse Ox O2 Delivery O2 Flow Rate FiO2 11/23/24 02:57 99.0 111 16 149/92 (111) 97 Lab Test 11/23/24 04:52 11/23/24 03:48 Range/Units Troponin I High Sensitivity Pending < 3 L </=34 ng/L White Blood Count 10.5 # 4.4-10.8 10^3/uL Red Blood Count 4.24 4.0-5.20 10^6/uL Hemoglobin 11.1 L 12.2-16.2 g/dL Hematocrit 33.9 L 36.0-46.0 % Mean Corpuscular Volume 80.0 80.0-100.0 fL Mean Corpuscular Hemoglobin 26.2 L 28.0-32.0 pg Mean Corpuscular Hemoglobin Concent 32.7 32.0-36.0 g/dL Red Cell Distribution Width 16.0 H 11.8-14.3 % Platelet Count 270 140-450 10^3/uL Mean Platelet Volume 8.2 6.9-10.8 fL Neutrophils (%) (Auto) 89.6 H 37.0-80.0 % Lymphocytes (%) (Auto) 5.2 L 10.0-50.0 % Monocytes (%) (Auto) 3.8 0.0-12.0 % Eosinophils (%) (Auto) 0.9 0.0-7.0 % Basophils (%) (Auto) 0.5 0.0-2.0 % Neutrophils # (Auto) 9.4 H 1.6-8.6 10 ^3/uL Lymphocytes # (Auto) 0.5 0.4-5.4 10 ^3/uL Monocytes # (Auto) 0.4 0-1.3 10 ^3/uL Eosinophils # (Auto) 0.1 0-0.8 10 ^3/uL Basophils # (Auto) 0.1 0-0.2 10 ^3/uL Nucleated Red Blood Cells 0.0 % Sodium Level 138 136-145 mmol/L Potassium Level 4.0 3.5-5.1 mmol/L Chloride Level 108 H 98-107 mmol/L Carbon Dioxide Level 22 20-31 mmol/L Anion Gap 8 5-15 Blood Urea Nitrogen 8 L 9-23 mg/dL Creatinine 0.72 0.550-1.02 mg/dL Glomerular Filtration Rate Calc 117 >90 mL/min BUN/Creatinine Ratio 11.1 10.0-20.0 Serum Glucose 90 74-106 mg/dL Lactic Acid Level 0.7 0.4-2.0 mmol/L Calcium Level 9.9 8.7-10.4 mg/dL Total Bilirubin 0.5 0.2-1.0 mg/dL Aspartate Amino Transferase (AST) 27 13-40 U/L Alanine Aminotransferase (ALT) 31 7-40 U/L Alkaline Phosphatase 114 46-116 U/L B-Type Natriuretic Peptide 22.19 0-100 pg/mL Total Protein 6.9 5.7-8.2 g/dL Albumin 3.8 3.2-4.8 g/dL Lipase 29 12-53 U/L Beta HCG, Quantitative 180.1 H 1.5-4.2 mIU/mL PROCEDURE(s): ABPL - CT AB PEL WO CON-NO ORAL OR IV REASON: abd pain n/v s/p c sect 1/10 ORDER NUMBER(s): [id number], ACCESSION NUMBER(s): [id number] Exam: CT CT AB PEL WO CON-NO ORAL OR IV History: abd pain n/v s/p c sect 11/17 Comparison Study: None available at time of dictation. Technique: Multidetector spiral CT of the abdomen and pelvis was performed from lung bases to pubic symphysis. Imaging was performed without intravenous contrast. Coronal and sagittal multiplanar reformats were obtained from the axial data set by the technologist. Radiation Dose : 1. Abdomen/Pelvis: CTDIvol 24.8 mGy, DLP 1292.5 mGy*cm. Findings: Evaluation of vasculature and solid organs is limited due to lack of intravenous contrast use. Lung Bases: Lung bases are clear. Visualized portions of the heart and pericardium are unremarkable. Liver: The liver is normal in size. No focal lesions. Gallbladder and Biliary Tree: Are multiple gallstones. No intrahepatic or extrahepatic biliary ductal dilatation. Spleen: Unremarkable Pancreas: The pancreas is grossly unremarkable. Adrenal Glands: Unremarkable Kidneys: Kidneys are unremarkable without calculi or hydronephrosis. GI tract: The stomach is grossly normal in appearance. Nonspecific fluid-filled small bowel loops without significant dilatation. There is liquid stool in the colon. Normal caliber appendix. Peritoneum/mesentery/retroperitoneum. Small foci of pneumoperitoneum which may be related to the prior surgery. In the ventral abdominal wall at midline, there is low attenuating fluid collection measuring 4.7 cm transverse by 2.5 cm AP by 2.8 cm craniocaudal. Mild fat stranding in the deep subcutaneous soft tissues of the ventral abdomen. There is fluid in the umbilicus. Subcutaneous emphysema in the deep soft tissues of the anterior abdomen. Vasculature: The visualized abdominal aorta is normal in size and caliber. Evaluation of abdominal and pelvic vessels is limited due to lack of intravenous contrast. Urinary Bladder: Grossly unremarkable for degree of distention. Pelvic Organs: Uterus is enlarged, which may be related to recent state. Musculoskeletal: No aggressive focal bony lesions, acute fractures or dislocation. IMPRESSION: 1. 4.7 cm midline ventral abdominal wall fluid collection which may reflect postoperative seroma. Abscess is not excluded. Subcutaneous emphysema in the ventral abdominal wall presumably related to the previous surgery. Small focus of pneumoperitoneum in the ventral abdominal wall may also be postsurgical in nature. 2. Nonspecific fluid-filled small bowel loops and liquid stool throughout the colon may reflect a mild enterocolitis in the appropriate clinical setting. 3. Enlarged uterus, likely related to recent state. 4. Gallstones. X-Ray, Labs, Meds, VS Comment 29-year-old female with a history of preeclampsia and on 11/17/2024 complaining of abdominal pain, nausea, vomiting and diarrhea Vitals remarkable for heart rate 111, BP 142/92 Exam remarkable for diffuse abdominal tenderness to palpation, greatest in the lower abdomen Rhythm strip independently interpreted by me: Sinus tach, rate 110, no ectopy. CT abdomen and pelvis IMPRESSION: 1. 4.7 cm midline ventral abdominal wall fluid collection which may reflect postoperative seroma. Abscess is not excluded. Subcutaneous emphysema in the ventral abdominal wall presumably related to the previous surgery. Small focus of pneumoperitoneum in the ventral abdominal wall may also be postsurgical in nature. 2. Nonspecific fluid-filled small bowel loops and liquid stool throughout the colon may reflect a mild enterocolitis in the appropriate clinical setting. 3. Enlarged uterus, likely related to recent state. 4. Gallstones. Pelvic ultrasound pending CBC, CMP, lipase and lactic acid level unremarkable, hCG 180.1, UA pending Patient treated with the following in the ED: 1 L 0.9 normal saline IV bolus, morphine 4 mg IV, Zofran 4 mg IV, labetalol 5 mg IV, Rocephin 1 g IV, vancomycin 1 g IV On re-evaluation, pt states pain has improved. Non-tachycardic, BP improved. Favor enterocolitis as the cause of the patient's symptoms, however post operative intra-abdominal abscesses not excluded. Plan is to admit the patient for pain and emesis control, IV antibiotics and O BGYN consultation. Consultation placed for Dr. Otto in the a.m. Time of 1ST Reevaluation: 03:47 Reevaluation 1ST: Unchanged Patient Education/Counseling: Diagnosis, Treatment, Prognosis Family Education/Counseling: No Family Present Departure 1 Departure Time of Disposition: 05:02 Impression: Primary Impression: Enterocolitis Additional Impression: Postoperative seroma Qualified Codes: L76.34 - Postprocedural seroma of skin and subcutaneous tissue following other procedure Disposition: 09 ADMITTED INPATIENT Admit to: Med Surg Condition: Guarded Critical Care Note Critical Care Time?: No Stability Stability form required: No Heart Score Heart Score: Heart Score Response (Comments) Value History N/A 0 EKG N/A 0 Age N/A 0 Risk Factors N/A 0 Troponin N/A 0 Total 0 I personally scribed for TIAN HODGE MD ([email or web address]) on 11/23/24 at 03:28. Electronically submitted by Becki Rojas ([email or web address]). TIAN HODGE MD Nov 23, 2024 03:28
[2024-11-23 03:58] LABS: Eosinophils # (auto) 0.1 10 ^3/uL (0-0.8); Eosinophils % (auto) 0.9 % (0.0-7.0); Lymphocytes # (auto) 0.5 10 ^3/uL (0.4-5.4); Monocytes # (auto) 0.4 10 ^3/uL (0-1.3); Platelet Count (auto) 270 10^3/uL (140-450); Red Blood Cells 4.24 10^6/uL (4.0-5.20)
[2024-11-23 04:00] LABS: Basophils # (auto) 0.1 10 ^3/uL (0-0.2); Basophils % (auto) 0.5 % (0.0-2.0); Hematocrit 33.9 % (36.0-46.0); Hemoglobin 11.1 g/dL (12.2-16.2); Lymphocytes % (auto) 5.2 % (10.0-50.0); Mean Corpuscular Hemoglobin 26.2 pg (28.0-32.0); Mean Corpuscular Hgb Conc. 32.7 g/dL (32.0-36.0); Monocytes % (auto) 3.8 % (0.0-12.0); Neutrophils # (auto) 9.4 10 ^3/uL (1.6-8.6); Neutrophils % (auto) 89.6 % (37.0-80.0); White Blood Cell 10.5 10^3/uL (4.4-10.8)
[2024-11-23 04:15] LABS: Alanine Aminotransferase 31 U/L (7-40); Albumin 3.8 g/dL (3.2-4.8); Alkaline Phosphatase 114 U/L (46-116); Anion Gap 8 (5-15); Aspartate Aminotransferase 27 U/L (13-40); BUN/Creatinine Ratio 11.1 (10.0-20.0); Bilirubin, Total 0.5 mg/dL (0.2-1.0); Calcium 9.9 mg/dL (8.7-10.4); Carbon Dioxide 22 mmol/L (20-31); Glucose 90 mg/dL (74-106); Lipase 29 U/L (12-53); Sodium 138 mmol/L (136-145); Total Protein 6.9 g/dL (5.7-8.2)
[2024-11-23 04:26] LABS: Blood Urea Nitrogen 8 mg/dL (9-23); Chloride 108 mmol/L (98-107)
--- NOTE | 2024-11-23 04:50 | DVH ---
Exam: CT CT AB PEL WO CON-NO ORAL OR IV History: abd pain n/v s/p c sect 11/17 Comparison Study: None available at time of dictation. Technique: Multidetector spiral CT of the abdomen and pelvis was performed from lung bases to pubic s ymphysis. Imaging was performed without intravenous contrast. Coronal and sagittal multiplanar refor mats were obtained from the axial data set by the technologist. Radiation Dose : 1. Abdomen/Pelvis: CTDIvol 24.8 mGy, DLP 1292.5 mGy*cm. Findings: Evaluation of vasculature and solid organs is limited due to lack of intravenous contrast use. Lung Bases: Lung bases are clear. Visualized portions of the heart and pericardium are unremarkable. Liver: The liver is normal in size. No focal lesions. Gallbladder and Biliary Tree: Are multiple gallstones. No intrahepatic or extrahepatic biliary ducta l dilatation. Spleen: Unremarkable Pancreas: The pancreas is grossly unremarkable. Adrenal Glands: Unremarkable Kidneys: Kidneys are unremarkable without calculi or hydronephrosis. GI tract: The stomach is grossly normal in appearance. Nonspecific fluid-filled small bowel loops wi thout significant dilatation. There is liquid stool in the colon. Normal caliber appendix. Peritoneum/mesentery/retroperitoneum. Small foci of pneumoperitoneum which may be related to the prio r surgery. In the ventral abdominal wall at midline, there is low attenuating fluid collection measuring 4.7 cm transverse by 2.5 cm AP by 2.8 cm craniocaudal. Mild fat stranding in the deep subcutaneous soft tiss ues of the ventral abdomen. There is fluid in the umbilicus. Subcutaneous emphysema in the deep soft tissues of the anterior abdomen. Vasculature: The visualized abdominal aorta is normal in size and caliber. Evaluation of abdominal a nd pelvic vessels is limited due to lack of intravenous contrast. Urinary Bladder: Grossly unremarkable for degree of distention. Pelvic Organs: Uterus is enlarged, which may be related to recent state. Musculoskeletal: No aggressive focal bony lesions, acute fractures or dislocation. IMPRESSION: 1. 4.7 cm midline ventral abdominal wall fluid collection which may reflect postoperative seroma. Ab scess is not excluded. Subcutaneous emphysema in the ventral abdominal wall presumably related to the previous surgery. Small focus of pneumoperitoneum in the ventral abdominal wall may also be postsurg ical in nature. 2. Nonspecific fluid-filled small bowel loops and liquid stool throughout the colon may reflect a mil d enterocolitis in the appropriate clinical setting. 3. Enlarged uterus, likely related to recent state. 4. Gallstones.
[2024-11-23] MEDS: SODIUM CHLORIDE 0.9% 1,000 ML IVB ONE (05:09)
[2024-11-23] MEDS: cefTRIAXone 1GM/50ML D5W 50 ML IV ONE (05:09)
[2024-11-23] MEDS: ONDANSETRON HCL 4 MG/2 ML VIAL IV ONE (05:12)
[2024-11-23] MEDS: MORPHINE SULFATE 4 MG/ML SYR/VIAL IV ONE (05:12)
[2024-11-23] MEDS: LABETALOL HCL 20 MG/4 ML VL IV ONE (05:12)
[2024-11-23] MEDS: VANCOMYCIN 1GM/250ML KIT 250 ML IV ONE (06:40)
[2024-11-23] MEDS ORDERED: VANCOMYCIN PER PHARMACY 0 MG IV SCH (07:30)
[2024-11-23] MEDS ORDERED: MORPHINE SULFATE INJ 2 MG/ml SYRG IV PRN (07:30)
[2024-11-23] MEDS ORDERED: ONDANSETRON HCL 4 MG/2 ML VIAL IV PRN (07:30)
[2024-11-23] MEDS ORDERED: NITROGLYCERIN 0.4 MG SL TAB SL PRN (07:30)
--- NOTE | 2024-11-23 07:44 | DVH ---
INDICATION: abd pain s/p c sect 11/17 TECHNIQUE: Multiple real-time grayscale transabdominal sonographic images along with color and duplex Doppler of the uterus and ovaries were obtained. COMPARISON: None FINDINGS: The uterus is enlarged and heterogeneous measuring 13.6 x 10.1 x 6.4 cm. There is a hypoech oic structure measuring 2.8 x 2.3 x 2.7 cm anterior to the uterus. The endometrial stripe measures 0. 4 cm. Fluid in the endometrium. The right and left ovary are not visualized. Ovaries are not visualized. There is fluid in the posterior cul-de-sac. IMPRESSION: 1. Enlarged and heterogeneous uterus. 2.8 cm hypoechoic structure anterior to the uterus most likely corresponding to the fluid collection seen on CT same date. This may represent postoperative seroma or abscess. Trace fluid in the endometrium. 2. Small volume pelvic free fluid. 3. A CT of the abdomen pelvis with intravenous contrast may be obtained for further evaluation if cli nically warranted.
[2024-11-23 08:00] VITALS: PULSE 105; RESP 14; O2SAT 99
--- NOTE | 2024-11-23 08:08 | DVHHP2 ---
History of Present Illness Reason for Visit: abd pain and vomiting History of Present Illness 29-year-old female no past medical history recent November 17, 2024 by doctor Jess pt states non post surgical complications chief complaint patient states that she has some abdominal pain in her upper abdomen that started last night. She states it is more she got up she vomited 2 times but there was no blood in her emesis. She does complain of pain in her lower abdomen with her surgical incision is located. Patient states that pain is constant nothing makes it better nothing makes it worse. She denies any chest pain denies any shortness with the breath. She states she was bleeding but the bleeding is resolving. No clots with her bleeding. Did speak with the patient she states she was trying to breastfeed and she would like the pump. When evaluating patient's labs and imaging vanco and ceftriaxone was given labetalol was provided hemoglobin was 11.7 34.6 otherwise CBC and CMP unremarkable patient was given morphine normal saline CT scan of the abdomen and pelvis shows midline ventral abdomen wall fluid collection postop seroma versus abscess. Cinder Snapper was called by er team will follow up results. will admit for further workup and care patient is a one para one A0 Past Medical History Denies any medical history Past Surgical History November 17, 2024 Family History Reviewed, non-contributory to the management of this case. Past Social History The patient lives at home, denies smoking, alcohol or illicit drugs abuse. Review of Systems Constitutional: No: Fever, Chills, Sweats, Weakness, Malaise, Other Eyes: No: Pain, Vision change, Conjunctivae inflammation, Eyelid inflammation, Other, Redness ENT: No: Ear pain, Ear discharge, Nose pain, Nose discharge, Nose congestion, Mouth pain, Mouth swelling, Throat pain, Throat swelling, Other Respiratory: No: Cough, Dry, Shortness of breath, SOB with excertion, Wheezing, Hemoptysis, Pleuritic Pain, Sputum, Wheezing, Other Cardiovascular: No: Chest Pain, Palpitations, Orthopnea, Paroxysmal Noc. Dyspnea, Edema, Lt Headedness, Other Gastrointestinal: Nausea, Vomiting, Abdominal Pain; No: Diarrhea, Constipation, Melena, Hematochezia, Other Genitourinary: No Dysuria, No Frequency, No Incontinence, No Hematuria, No Retention, No Other Musculoskeletal: No: other, neck pain, shoulder pain, arm pain, back pain, hand pain, leg pain, foot pain Skin: No: Rash, Lesions, Jaundice, Bruising, Other Neurological: No: Weakness, Numbness, Incoordination, Change in speech, Confusion, Seizures, Other Allergies: Coded Allergies: NO KNOWN ALLERGIES (Unverified , 05/01/24) Exam Vital Signs Vital Signs Date Time Temp Pulse Resp B/P (MAP) Pulse Ox O2 Delivery O2 Flow Rate FiO2 11/23/24 07:24 104 18 139/96 11/23/24 05:16 99 11/23/24 02:57 99.0 General Appearance: Alert, Oriented X3, Cooperative, No acute distress, mild distress HEENT: Atraumatic, PERRLA, EOMI, Mucous membr. moist/pink Respiratory: Clear to auscultation, Normal air movement Cardiovascular: Regular rate, Normal S1, Normal S2, No murmurs Abdominal: Normal bowel sounds, Soft, No tenderness, No hepatospenomegaly, No masses, Other (lower abd surgical incision appears to have some drainage from limited exam, small amount of drainage seen no odor) Extremities: No clubbing, No cyanosis, No edema, Normal pulses, No tenderness/swelling Skin: No rashes, No breakdown, No significant lesion Neuro: Normal speech, Strength at 5/5 X4 ext, Normal tone, Sensation intact, Cranial nerves 3-12 NL Psych/Mental Status: Mental status NL, Mood NL Labs/Xrays CT scan of the abdomen pelvis shows 4.7 cm midline ventral abdominal wall fluid collection abscess versus seroma , entercolitis I reviewed labs, imaging CT scan abdomen pelvis, EKG and all diagnostic studies on this patient from ED records and the medical chart Labs Test 11/23/24 04:52 11/23/24 03:48 Range/Units Troponin I High Sensitivity < 3 L </=34 ng/L White Blood Count 10.5 # 4.4-10.8 10^3/uL Red Blood Count 4.24 4.0-5.20 10^6/uL Hemoglobin 11.1 L 12.2-16.2 g/dL Hematocrit 33.9 L 36.0-46.0 % Mean Corpuscular Volume 80.0 80.0-100.0 fL Mean Corpuscular Hemoglobin 26.2 L 28.0-32.0 pg Mean Corpuscular Hemoglobin Concent 32.7 32.0-36.0 g/dL Red Cell Distribution Width 16.0 H 11.8-14.3 % Platelet Count 270 140-450 10^3/uL Mean Platelet Volume 8.2 6.9-10.8 fL Neutrophils (%) (Auto) 89.6 H 37.0-80.0 % Lymphocytes (%) (Auto) 5.2 L 10.0-50.0 % Monocytes (%) (Auto) 3.8 0.0-12.0 % Eosinophils (%) (Auto) 0.9 0.0-7.0 % Basophils (%) (Auto) 0.5 0.0-2.0 % Neutrophils # (Auto) 9.4 H 1.6-8.6 10 ^3/uL Lymphocytes # (Auto) 0.5 0.4-5.4 10 ^3/uL Monocytes # (Auto) 0.4 0-1.3 10 ^3/uL Eosinophils # (Auto) 0.1 0-0.8 10 ^3/uL Basophils # (Auto) 0.1 0-0.2 10 ^3/uL Nucleated Red Blood Cells 0.0 % Sodium Level 138 136-145 mmol/L Potassium Level 4.0 3.5-5.1 mmol/L Chloride Level 108 H 98-107 mmol/L Carbon Dioxide Level 22 20-31 mmol/L Anion Gap 8 5-15 Blood Urea Nitrogen 8 L 9-23 mg/dL Creatinine 0.72 0.550-1.02 mg/dL Glomerular Filtration Rate Calc 117 >90 mL/min BUN/Creatinine Ratio 11.1 10.0-20.0 Serum Glucose 90 74-106 mg/dL Lactic Acid Level 0.7 0.4-2.0 mmol/L Calcium Level 9.9 8.7-10.4 mg/dL Total Bilirubin 0.5 0.2-1.0 mg/dL Aspartate Amino Transferase (AST) 27 13-40 U/L Alanine Aminotransferase (ALT) 31 7-40 U/L Alkaline Phosphatase 114 46-116 U/L B-Type Natriuretic Peptide 22.19 0-100 pg/mL Total Protein 6.9 5.7-8.2 g/dL Albumin 3.8 3.2-4.8 g/dL Lipase 29 12-53 U/L Beta HCG, Quantitative 180.1 H 1.5-4.2 mIU/mL Assessment/Plan Assessment/Plan acute ventral abd wall abscess vs seroma s/p c sec 11/17/[address] scan ordered vanco and ceftriaxone for now ordered morphine as needed for pain wound culture fu results ordered hiv nurse consult fu results acute enterocolitis found on ct scan abd pelvis ordered vanco and ceftriaxone for now clr liquid diet ordered morphine as needed for pain s/p c sec by Dr. Mercado on 11/17/2024 had a girl per pt surgical incision site with some drainage seen ordered wound consult fu recs pt is deciding to breast feed will need to give medication that is good for feeding allow to pump ordered breast pump prn uncontrolled benign essential hypertension with hx of preeclampsia cont home labetalol fen/ppx cl liquid scd no gi ppx since no hx of gerds or gi bleed ivf for now plan admit to post floor hiv nurse consult fu recs Plan discussed with: Patient My Orders Orders - CINDY TUCKER DNP Procedure Category Date Status Time Admit ADMIT 11/23/24 Verified 07:29 Date of Service: Nov 23, 2024 Billing Provider: CINDY TUCKER DNP Common Visit Codes: [id number] INP/OBS CARE (HIGH) CINDY TUCKER DNP Nov 23, 2024 08:08
--- NOTE | 2024-11-23 08:42 | DVHINCON2 ---
Date of service: Nov 23, 2024 Reason for Consultation C/Section wound infection History of Present Illness HPI 29y s/p 1' C/S, POD#6 for severe HTN at Term. Admitted through ER with 1 day history of diffuse abdominal pain, N/V and diarrhea Denies fever/chills. Denies sick contracts or exposure to any spoiled food. CT scan shows abd wall fluid collection x 4cm, suggestive of seroma vs abscess Patient reports drainage from c/s site Home Meds Active Scripts Ibuprofen Micronized (Ibuprofen) 800 Mg Tab, 800 MG PO Q8HP PRN, #40 TAB Prov:RYAN OTTO DO 11/20/24 Hydrocodone-Acetaminophen (Hydrocodone Bitartrate/AC 5-325 mg) 1 Tab Tab, 1 TAB PO Q6HPRN PRN, #20 TAB Prov:RYAN OTTO DO 11/20/24 Reported Medications Labetalol Hcl (Labetalol Hcl) 300 Mg Tab, 300 MG PO BID for 30 Days, MG 11/14/24 Vit W/ Ferrous Fumara ( One Daily) Daily Tab, 1 TAB PO DAILY, #90 TAB 3 Refills 10/14/24 Discontinued Scripts Labetalol Hcl (Labetalol Hcl) 100 Mg Tab, 1 TAB PO BID, #60 TAB 2 Refills Prov:KRISTIN YODER CNM 10/24/24 Past Medical History Cardiac: HTN Pulmonary: No pertinent Hx Central Nervous System: No pertinent Hx GI: No pertinent Hx Hemotology/Oncology: No pertinent Hx Hepatobiliary: No pertinent Hx Psychiatric: No pertinent Hx Musculoskeletal: No pertinent Hx Rheumotologic: No pertinent Hx Infectious Disease: No peritnent Hx ENT: No pertinent Hx Renal/: No pertinent Hx Endocrine: Other (Morbid Obesity) Dermatology: No pertinent Hx Past Surgical History: Smoker: No Hx (Negative) Alocohol: None Drugs: None Lives with: With family Domestic Violence: Neg Review of Systems Constitutional: Malaise Ears, Nose, & Throat: No symptom reported Eyes: No symptom reported Pulmonary/Respiratory: No symptom reported Cardiovascular: No symptom reported Gastrointestinal: Nausea, Vomiting, Abdominal Pain, Diarrhea Genitourinary: No symptom reported Musculoskeletal: No symptom reported Skin: No symptom reported Psychiatric: No symptom reported Endocrine: No symptom reported Hemotologic/Lymphatic: No symptom reported H&P Exam Vital Signs Vital Signs Date Time Temp Pulse Resp B/P (MAP) Pulse Ox O2 Delivery O2 Flow Rate FiO2 11/23/24 08:01 100 143/82 11/23/24 08:00 18 99 11/23/24 02:57 99.0 General Appeara: Obese Head Exam: Normal inspection Neck Exam: Normal inspection Eye Exam: bilateral eye Normal inspection, bilateral eye PERRL Pulmonary/Respiratory: Normal inspection, Normal breath sounds Cardiovascular/Chest: Normal Rhythm, Tachycardia Abdominal Exam: Normal bowel sounds, Soft, No masses, Other (Pfannensteil incision with serous drainage, skin intact, well approximated. Abd skin with warmth and erythema (mild)) Rectal Exam: Deferred Pelvic Exam: Not done BEE BREEDER Exam: Normal hearing Neuro/Mental St: Alert, Oriented Thoughts/Psych: Normal thought pattern Labs/Xrays Labs Test 11/23/24 04:52 11/23/24 03:48 Range/Units Troponin I High Sensitivity < 3 L </=34 ng/L White Blood Count 10.5 # 4.4-10.8 10^3/uL Red Blood Count 4.24 4.0-5.20 10^6/uL Hemoglobin 11.1 L 12.2-16.2 g/dL Hematocrit 33.9 L 36.0-46.0 % Mean Corpuscular Volume 80.0 80.0-100.0 fL Mean Corpuscular Hemoglobin 26.2 L 28.0-32.0 pg Mean Corpuscular Hemoglobin Concent 32.7 32.0-36.0 g/dL Red Cell Distribution Width 16.0 H 11.8-14.3 % Platelet Count 270 140-450 10^3/uL Mean Platelet Volume 8.2 6.9-10.8 fL Neutrophils (%) (Auto) 89.6 H 37.0-80.0 % Lymphocytes (%) (Auto) 5.2 L 10.0-50.0 % Monocytes (%) (Auto) 3.8 0.0-12.0 % Eosinophils (%) (Auto) 0.9 0.0-7.0 % Basophils (%) (Auto) 0.5 0.0-2.0 % Neutrophils # (Auto) 9.4 H 1.6-8.6 10 ^3/uL Lymphocytes # (Auto) 0.5 0.4-5.4 10 ^3/uL Monocytes # (Auto) 0.4 0-1.3 10 ^3/uL Eosinophils # (Auto) 0.1 0-0.8 10 ^3/uL Basophils # (Auto) 0.1 0-0.2 10 ^3/uL Nucleated Red Blood Cells 0.0 % Sodium Level 138 136-145 mmol/L Potassium Level 4.0 3.5-5.1 mmol/L Chloride Level 108 H 98-107 mmol/L Carbon Dioxide Level 22 20-31 mmol/L Anion Gap 8 5-15 Blood Urea Nitrogen 8 L 9-23 mg/dL Creatinine 0.72 0.550-1.02 mg/dL Glomerular Filtration Rate Calc 117 >90 mL/min BUN/Creatinine Ratio 11.1 10.0-20.0 Serum Glucose 90 74-106 mg/dL Lactic Acid Level 0.7 0.4-2.0 mmol/L Calcium Level 9.9 8.7-10.4 mg/dL Total Bilirubin 0.5 0.2-1.0 mg/dL Aspartate Amino Transferase (AST) 27 13-40 U/L Alanine Aminotransferase (ALT) 31 7-40 U/L Alkaline Phosphatase 114 46-116 U/L B-Type Natriuretic Peptide 22.19 0-100 pg/mL Total Protein 6.9 5.7-8.2 g/dL Albumin 3.8 3.2-4.8 g/dL Lipase 29 12-53 U/L Beta HCG, Quantitative 180.1 H 1.5-4.2 mIU/mL Assessment/Plan Admitting Diagnosis: 1. Acute N/V and diarrhea, likely gastroenteritis 2. s/p C/Section w/ serous drainage, likely seroma vs early abscess 3. Mild skin/wound cellulitis 4. Gestational HTN vs Severe pre-eclampsia , BP controlled on PO Labetalol Plan Agree with plan for admission and observation IV hydration IV antibiotics, followed by Outpatient PO antibiotics to complete 10-14 days for cellulitis NO acute DIGITAL MARKETING OFFICER intervention indicated at this time DIGITAL MARKETING OFFICER will sign off F/U in office in 1 week post discharge. Plan discussed with: Patient Date of Service: Nov 23, 2024 Billing Provider: RYAN OTTO DO Common Visit Codes: CONSULT ONLY Consultation Codes: [id number] CONSULT <45MIN RYAN OTTO DO Nov 23, 2024 08:42
[2024-11-23] MEDS ORDERED: LABETALOL HCL 300 MG PO SCH (10:00)
[2024-11-23] MEDS: FERROUS FUMARATE PO SCH (10:00)
[2024-11-23] MEDS: PRENATAL VIT PO SCH (10:00)
[2024-11-23] MEDS: cefTRIAXone 1GM/50ML D5W 50 ML IV SCH (10:30)
[2024-11-23] MEDS: LABETALOL HCL 200 MG TAB PO SCH (10:31)
[2024-11-23] MEDS: SODIUM CHLORIDE 0.9% 1,000 ML IV SCH (10:32)
[2024-11-23 14:23] LABS: Rapid Influenza A Negative (Negative); Rapid Influenza B Negative (Negative)
[2024-11-23] MEDS: VANCOMYCIN 1,000 MG in SODIUM CHL 0.9% 250 ML IV SCH (15:41)
[2024-11-23 17:39] VITALS: BP 137/80; PULSE 101; RESP 18; RESP 19; TEMP 98.1; O2SAT 98
[2024-11-23 20:00] VITALS: PULSE 98; RESP 18; O2SAT 99
[2024-11-23 21:00] VITALS: BP 145/90; PULSE 98; RESP 18; TEMP 99; O2SAT 99
[2024-11-23] MEDS: VANCOMYCIN 1GM/250ML KIT 250 ML IV SCH (22:32)
[2024-11-24] VITALS (7 sets, daily range): BP systolic 140–152; BP diastolic 85–95; PULSE 92–102; RESP 17–20; TEMP 98–99.9; O2SAT 97–100
[2024-11-24 05:13] LABS: Basophils # (auto) 0 10 ^3/uL (0-0.2); Basophils % (auto) 0.3 % (0.0-2.0); Eosinophils # (auto) 0.1 10 ^3/uL (0-0.8); Lymphocytes # (auto) 0.7 10 ^3/uL (0.4-5.4); Monocytes # (auto) 0.4 10 ^3/uL (0-1.3); Neutrophils # (auto) 4.5 10 ^3/uL (1.6-8.6); Red Blood Cells 3.86 10^6/uL (4.0-5.20)
[2024-11-24 05:15] LABS: Eosinophils % (auto) 1.9 % (0.0-7.0); Hematocrit 30.4 % (36.0-46.0); Mean Corpuscular Volume 78.6 fL (80.0-100.0); Monocytes % (auto) 7.6 % (0.0-12.0); Neutrophils % (auto) 78.2 % (37.0-80.0); Nucleated Red Blood Cells % 0.1 %; Platelet Count (auto) 262 10^3/uL (140-450); Red Cell Distribution Width 16.3 % (11.8-14.3); White Blood Cell 5.7 10^3/uL (4.4-10.8)
[2024-11-24 06:09] LABS: Alanine Aminotransferase 26 U/L (7-40); Alkaline Phosphatase 98 U/L (46-116); Anion Gap 9 (5-15); BUN/Creatinine Ratio 7.2 (10.0-20.0); Calcium 9.3 mg/dL (8.7-10.4); Carbon Dioxide 23 mmol/L (20-31); Glucose 84 mg/dL (74-106); Potassium 3.8 mmol/L (3.5-5.1); Sodium 140 mmol/L (136-145)
[2024-11-24 06:10] LABS: Aspartate Aminotransferase 23 U/L (13-40)
[2024-11-24 06:11] LABS: Bilirubin, Total 0.4 mg/dL (0.2-1.0); Total Protein 6.1 g/dL (5.7-8.2)
[2024-11-24 06:24] LABS: Blood Urea Nitrogen 5 mg/dL (9-23); Chloride 108 mmol/L (98-107)
[2024-11-24 06:27] LABS: Albumin 3.7 g/dL (3.2-4.8)
--- NOTE | 2024-11-24 12:28 | DVHPN2 ---
Reviewed: Care Plan Changes from previous H/P or p: No Changes General: Per HPI Eyes: No Pain, No Vision change, No Conjunctivae inflammation, No Eyelid inflammation, No Other, No Redness ENT: No Ear pain, No Ear discharge, No Nose pain, No Nose discharge, No Nose congestion, No Mouth pain, No Mouth swelling, No Throat pain, No Throat swelling, No Other Cardiovascular: No Chest Pain, No Palpitations, No Orthopnea, No Paroxysmal Noc. Dyspnea, No Edema, No Lt Headedness, No Other Respiratory: No Cough, No Dry, No Shortness of breath, No SOB with excertion, No Wheezing, No Hemoptysis, No Pleuritic Pain, No Sputum, No Other Gastrointestinal: Nausea, Vomiting, Abdominal Pain; No Diarrhea, No Constipation, No Melena, No Hematochezia, No Other Genitourinary: No Dysuria, No Frequency, No Incontinence, No Hematuria, No Retention, No Other Musculoskeletal: No other, No neck pain, No shoulder pain, No arm pain, No back pain, No hand pain, No leg pain, No foot pain Skin: No Rash, No Lesions, No Jaundice, No Bruising, No Other Objective Vitals Vital Signs Date Time Temp Pulse Resp B/P (MAP) Pulse Ox O2 Delivery O2 Flow Rate FiO2 11/24/24 11:58 90 132/78 11/24/24 09:00 98.2 18 99 98.2 11/24/24 08:00 Room Air* 0 21 Intake/Output Intake and Output 11/24/24 07:00 Intake Total 1570 ml Balance 1570 ml Intake Oral 320 ml IV Total 1250 ml # Voids 1 Medications Current Medications Medications Dose Ordered Sig/Reilly Route Start Time Stop Time Status Last Admin Dose Admin Sodium Chloride 1,000 ml @ 120 mls/hr Q8H20M IV 11/23/24 07:30 11/24/24 08:30 120 MLS/HR Ondansetron HCl 4 mg Q4HP PRN IV 11/23/24 07:30 Morphine Sulfate 2 mg Q4HPRN PRN IV 11/23/24 07:30 Nitroglycerin 0.4 mg Q5MINP PRN SL 11/23/24 07:30 Vancomycin HCl 0 ml @ 0 mls/hr UD IV 11/23/24 07:30 Ceftriaxone Sodium 50 ml @ 100 mls/hr DAILY@09 IV 11/23/24 09:00 11/24/24 10:59 100 MLS/HR Patient Own Medication 300 mg BID PO 11/23/24 10:00 UNV Patient Own Medication 1 tab DAILY PO 11/23/24 10:00 Labetalol HCl 300 mg BID PO 11/23/24 10:00 11/24/24 10:58 300 MG Vancomycin HCl 250 ml @ 250 mls/hr Q8H IV 11/23/24 22:00 11/24/24 06:35 250 MLS/HR Laboratory Results Laboratory Tests 11/24/24 04:55 Chemistry Test 11/24/24 04:55 Albumin 3.7 g/dL (3.2-4.8) Calcium Level 9.3 mg/dL (8.7-10.4) Total Protein 6.1 g/dL (5.7-8.2) LFT Test 11/24/24 04:55 Alanine Aminotransferase (ALT) 26 U/L (7-40) Alkaline Phosphatase 98 U/L (46-116) Aspartate Amino Transferase (AST) 23 U/L (13-40) Total Bilirubin 0.4 mg/dL (0.2-1.0) Microbiology Microbiology Date/Time Source Procedure Growth Status 11/23/24 15:00 Abdomen Gram Stain Pending Resulted 11/23/24 15:00 Abdomen Wound Culture - Preliminary Resulted Assessment/Plan Assessment/Plan 29-year-old female no past medical history recent November 17, 2024 by doctor Jess pt states non post surgical complications chief complaint patient states that she has some abdominal pain in her upper abdomen that started last night. She states it is more she got up she vomited 2 times but there was no blood in her emesis. She does complain of pain in her lower abdomen with her surgical incision is located. Patient states that pain is constant nothing makes it better nothing makes it worse. She denies any chest pain denies any shortness with the breath. She states she was bleeding but the bleeding is resolving. No clots with her bleeding. Did speak with the patient she states she was trying to breastfeed and she would like the pump. When evaluating patient's labs and imaging vanco and ceftriaxone was given labetalol was provided hemoglobin was 11.7 34.6 otherwise CBC and CMP unremarkable patient was given morphine normal saline CT scan of the abdomen and pelvis shows midline ventral abdomen wall fluid collection postop seroma versus abscess. 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 will admit for further workup and care patient is a one para one A0 acute ventral abd wall abscess vs seroma s/p c sec 11/17/[address] scan ordered vanco and ceftriaxone for now ordered morphine as needed for pain wound culture fu results ordered multimedia specialist consult fu results acute enterocolitis found on ct scan abd pelvis ordered vanco and ceftriaxone for now clr liquid diet ordered morphine as needed for pain s/p c sec by Dr. Mercado on 11/17/2024 had a girl per pt surgical incision site with some drainage seen ordered wound consult fu recs pt is deciding to breast feed will need to give medication that is good for feeding allow to pump ordered breast pump prn uncontrolled benign essential hypertension with hx of preeclampsia cont home labetalol fen/ppx cl liquid scd no gi ppx since no hx of gerds or gi bleed ivf for now Plan discussed with: Patient Date of Service: Nov 24, 2024 Billing Provider: SUSAN STANTON DO Common Visit Codes: [id number] INP/OBS CARE(HIGH) SUSAN STANTON DO Nov 24, 2024 12:28
[2024-11-24] MEDS ORDERED: CEPH250C PO (16:36)
--- NOTE | 2024-11-24 16:39 | DVHDS2 ---
Discharge Summary Date of Admission Nov 23, 2024 at 10:59 Date of Discharge: Nov 24, 2024 Labs/Diagnostic Data: Laboratory Results Test 11/24/24 04:55 11/23/24 13:05 11/23/24 04:52 11/23/24 03:48 White Blood Count 5.7 10^3/uL (4.4-10.8) Red Blood Count 3.86 10^6/uL (4.0-5.20) Hemoglobin 10.0 g/dL (12.2-16.2) Hematocrit 30.4 % (36.0-46.0) Mean Corpuscular Volume 78.6 fL (80.0-100.0) Mean Corpuscular Hemoglobin 26.0 pg (28.0-32.0) Mean Corpuscular Hemoglobin Concent 33.0 g/dL (32.0-36.0) Red Cell Distribution Width 16.3 % (11.8-14.3) Platelet Count 262 10^3/uL (140-450) Mean Platelet Volume 8.1 fL (6.9-10.8) Neutrophils (%) (Auto) 78.2 % (37.0-80.0) Lymphocytes (%) (Auto) 12.0 % (10.0-50.0) Monocytes (%) (Auto) 7.6 % (0.0-12.0) Eosinophils (%) (Auto) 1.9 % (0.0-7.0) Basophils (%) (Auto) 0.3 % (0.0-2.0) Neutrophils # (Auto) 4.5 10 ^3/uL (1.6-8.6) Lymphocytes # (Auto) 0.7 10 ^3/uL (0.4-5.4) Monocytes # (Auto) 0.4 10 ^3/uL (0-1.3) Eosinophils # (Auto) 0.1 10 ^3/uL (0-0.8) Basophils # (Auto) 0 10 ^3/uL (0-0.2) Nucleated Red Blood Cells 0.1 % Sodium Level 140 mmol/L (136-145) Potassium Level 3.8 mmol/L (3.5-5.1) Chloride Level 108 mmol/L (98-107) Carbon Dioxide Level 23 mmol/L (20-31) Anion Gap 9 (5-15) Blood Urea Nitrogen 5 mg/dL (9-23) Creatinine 0.69 mg/dL (0.550-1.02) Glomerular Filtration Rate Calc 122 mL/min (>90) BUN/Creatinine Ratio 7.2 (10.0-20.0) Serum Glucose 84 mg/dL (74-106) Calcium Level 9.3 mg/dL (8.7-10.4) Total Bilirubin 0.4 mg/dL (0.2-1.0) Aspartate Amino Transferase (AST) 23 U/L (13-40) Alanine Aminotransferase (ALT) 26 U/L (7-40) Alkaline Phosphatase 98 U/L (46-116) Total Protein 6.1 g/dL (5.7-8.2) Albumin 3.7 g/dL (3.2-4.8) Vancomycin Level Trough 11.3 ug/mL (5-10) Influenza Type A Antigen Negative (Negative) Influenza Type B Antigen Negative (Negative) Troponin I High Sensitivity < 3 ng/L (</=34) Lactic Acid Level 0.7 mmol/L (0.4-2.0) B-Type Natriuretic Peptide 22.19 pg/mL (0-100) Lipase 29 U/L (12-53) Beta HCG, Quantitative 180.1 mIU/mL (1.5-4.2) Other Laboratory Tests 11/24/24 04:55 Discharge Disposition: Home Discharge Instruct/Medications Diet: Cardiac 2g Na,low cholest Activity: No Restrictions, As Tolerated Discharge Statement: "Patient was advised to return to the ER or call 911 if any headaches, dizziness, shortness of breath, chest pain, abdominal pain, bleeding, fevers, or worsening of medical condition. Patient was counseled about treatment plan, medications, possible side effects, patientverbalized understanding. All questions were answered to the best of my ability. This discharge took greater then 30 minutes in planning, reviewing documentation, counseling the patient, and discussing with other team members." ASSESSMENT ASSESSMENT Assessment Date of Service: Nov 24, 2024 Billing Provider: SUSAN STANTON DO Common Visit Codes: [id number] DISCH DAY >30min SUSAN STANTON DO Nov 24, 2024 16:39
== END 2024-11-24 19:15 | disposition home or self-care (01) | DRG 561 ==
LOC: ER 02:43 → OVERFLOW 10:59 → EAST 17:40
PROVIDERS: ADMIT Nurse Practitioner Family; ATTEND Internal Medicine
DX: O86.00 Infection of obstetric surgical wound, unspecified (principal); L02.211 Cutaneous abscess of abdominal wall; L76.34 Postprocedural seroma of skin and subcutaneous tissue following other procedure; O99.63 Diseases of the digestive system complicating the puerperium; K52.9 Noninfective gastroenteritis and colitis, unspecified; L03.818 Cellulitis of other sites; O16.5 Unspecified maternal hypertension, complicating the puerperium; Z87.891 Personal history of nicotine dependence
CPT/HCPCS: 36415; 74176; 76856; 80053; 80202; 83605; 83690; 83880; 84484; 84702; 85025; 87077; 87186; 87205; 87804; 96365; 96375; G0378; J2405

== ENCOUNTER 2025-09-12 00:04 | Inpatient (IN) | payer MEDICAID ==
[2025-09-12] VITALS (9 sets, daily range): BP systolic 127–131; BP diastolic 77–81; PULSE 70–110; RESP 15–20; TEMP 97–98.2; O2SAT 96–100
[~2025-09-12] VITALS: Ht 170.2 cm; Wt 122.0 kg
[~2025-09-12 00:04] MED LIST changes: +CEPH250C PO; -HYDR-4902 PO
--- NOTE | 2025-09-12 01:01 | ED.PDOC ---
GI ASSESSMENT HPI Comments 30-year-old female complains of right upper quadrant abdominal pain for the last 1 day. Patient states that she has a history of gallstones but never had her gallbladder taken out or had surgery on her belly. Chief Complaint: Abdominal Pain Time Seen by MD: 00:12 Primary Care Provider: Nichol Harden Notes: Nurses Notes Allergies: Coded Allergies: NO KNOWN ALLERGIES (Unverified , 05/01/24) Home Meds Active Scripts Cephalexin (KEFLEX CAPSULE) 250 Mg Cp, 2 CAP PO BID for 7 Days, #28 CAP Prov:SUSAN STANTON DO 11/24/24 Ibuprofen Micronized (Ibuprofen) 800 Mg Tab, 800 MG PO Q8HP PRN, #40 TAB Prov:RYAN OTTO DO 11/20/24 Reported Medications Labetalol Hcl (Labetalol Hcl) 300 Mg Tab, 300 MG PO BID for 30 Days, MG 11/14/24 Vit W/ Ferrous Fumara ( One Daily) Daily Tab, 1 TAB PO DAILY, #90 TAB 3 Refills 10/14/24 Information Source: Patient Mode of Arrival: Ambulatory Past Medical History PAST MEDICAL HISTORY: Gallstones, Denies 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: Other Family History Family History: Reviewed,noncontributory to illness Social History Smoker: Non-Smoker Alcohol: Denies ETOH Use Drugs: Denies Drug Use Lives In: Home Gastrointestinal: reports: abdominal pain, nausea All Other Systems: Reviewed and Negative Physical Exam General Appearance: Mild Distress HEENT: Normal ENT Inspection, Pharynx Normal, TMs Normal Neck: Full Range of Motion, Non-Tender, Normal, Normal Inspection Respiratory: Chest Non-Tender, Lungs Clear, No Accessory Muscle Use, No Respiratory Distress, Normal Breath Sounds Cardiovascular: No Edema, No JVD, No Murmur, No Gallop, Normal Peripheral Pulses, Regular Rate/Rhythm Breast Exam: Deferred Gastrointestinal: RUQ, Tenderness Genitalia: Deferred Pelvic: Deferred Rectal: Deferred Extremities: No calf tenderness, Normal capillary refill, Normal inspection, Normal range of motion, Non-tender, No pedal edema Musculoskeletal : Apperance: Normal Neurologic: Alert, tire buster II-XII nml as Tested, No Motor Deficits, Normal Affect, Normal Mood, No Sensory Deficits Cerebellar Function: Normal Reflexes: Normal Skin: Dry, Normal Color, Warm Lymphatic: No Adenopathy Was a procedure done? Was a procedure done?: No GI differential Dx Differential Diagnosis: Appendicitis, Threatened , Bowel Obstruction, Cholangitis, Cholecystitis, Gastritis/PUD, Gastroenteritis, GI hemorrhage, Inflammatory BD, Pancreatitis, Kidney Stone, Other X-Ray, Labs, Meds, VS Vital Signs Date Time Temp Pulse Resp B/P (MAP) Pulse Ox O2 Delivery O2 Flow Rate FiO2 09/12/25 02:20 98.3 83 18 140/90 (107) 99 98.3 09/12/25 00:06 98.2 77 18 136/98 98 98.2 Lab Test 09/12/25 02:15 09/12/25 00:38 Range/Units Urine Color Light-yellow Yellow Urine Clarity Clear Clear Urine pH 5.0 5.0-9.0 Urine Specific English 1.017 1.001-1.035 Urine Protein Negative Negative Urine Ketones Negative Negative Urine Blood Negative Negative /uL Urine Nitrite Negative Negative Urine Bilirubin Negative Negative Urine Urobilinogen Normal Negative mg/dL Urine Leukocyte Esterase 1+ Negative /uL Urine RBC 3 0 - 4 /hpf Urine Microscopic WBC 25 H 0-5 /HPF Urine Squamous Epithelial Cells Few <5 /hpf Urine Bacteria Mod H None Seen /hpf Urine Glucose Normal Normal mg/dL Urine Test Negative Negative White Blood Count 8.2 4.4-10.8 10^3/uL Red Blood Count 4.79 4.0-5.20 10^6/uL Hemoglobin 12.3 12.2-16.2 g/dL Hematocrit 36.9 36.0-46.0 % Mean Corpuscular Volume 77.0 L 80.0-100.0 fL Mean Corpuscular Hemoglobin 25.8 L 28.0-32.0 pg Mean Corpuscular Hemoglobin Concent 33.5 32.0-36.0 g/dL Red Cell Distribution Width 15.9 H 11.8-14.3 % Platelet Count 255 140-450 10^3/uL Mean Platelet Volume 8.4 6.9-10.8 fL Neutrophils (%) (Auto) 76.5 37.0-80.0 % Lymphocytes (%) (Auto) 15.0 10.0-50.0 % Monocytes (%) (Auto) 6.3 0.0-12.0 % Eosinophils (%) (Auto) 1.7 0.0-7.0 % Basophils (%) (Auto) 0.5 0.0-2.0 % Neutrophils # (Auto) 6.2 1.6-8.6 10 ^3/uL Lymphocytes # (Auto) 1.2 0.4-5.4 10 ^3/uL Monocytes # (Auto) 0.5 0-1.3 10 ^3/uL Eosinophils # (Auto) 0.1 0-0.8 10 ^3/uL Basophils # (Auto) 0 0-0.2 10 ^3/uL Nucleated Red Blood Cells 0.0 % Sodium Level 140 136-145 mmol/L Potassium Level 4.1 3.5-5.1 mmol/L Chloride Level 106 98-107 mmol/L Carbon Dioxide Level 26 20-31 mmol/L Anion Gap 8 5-15 Blood Urea Nitrogen 12 9-23 mg/dL Creatinine 0.92 0.550-1.02 mg/dL Glomerular Filtration Rate Calc 87 >90 mL/min BUN/Creatinine Ratio 13.0 10.0-20.0 Serum Glucose 123 H 74-106 mg/dL Calcium Level 9.8 8.7-10.4 mg/dL Total Bilirubin 0.3 0.2-1.0 mg/dL Aspartate Amino Transferase (AST) 19 13-40 U/L Alanine Aminotransferase (ALT) 18 7-40 U/L Alkaline Phosphatase 120 H 46-116 U/L Total Protein 8.2 5.7-8.2 g/dL Albumin 4.5 3.2-4.8 g/dL Lipase 34 12-53 U/L Time of 1ST Reevaluation: 01:00 Reevaluation 1ST: Unchanged Patient Education/Counseling: Diagnosis, Treatment Family Education/Counseling: No Family Present SEPSIS Sepsis Screen Date sepsis recognized/suspect: Sep 12, 2025 Time Sepsis recognized/suspect: 0009 Recent Procedure: No On Antibiotic Therapy: No Respiratory Rate >20: No Heart Rate >90: No Temp<36 C (96.8 F) or >38.3 C: No SBP <90 or MAP <65 mmHG: No New Acute Mental Status Change: No Is the patient on CPAP, BIPAP,: No Physician Orders Gallbladder (09/12/25 00:29) Vital Signs Date Time Temp Pulse Resp B/P (MAP) Pulse Ox O2 Delivery O2 Flow Rate FiO2 09/12/25 02:20 98.3 83 18 140/90 (107) 99 98.3 09/12/25 00:06 98.2 77 18 136/98 98 98.2 Laboratory Tests Test 09/12/25 00:38 White Blood Count 8.2 10^3/uL (4.4-10.8) Departure 1 Departure Time of Disposition: 03:44 Impression: Primary Impression: Right upper quadrant pain Additional Impression: Acute cholecystitis Disposition: ADMITTED INPATIENT Admit to: Med Surg Condition: Guarded Discharged With: Self Comments 30-year-old female with known gallstones now with right upper quadrant pain. She is quite tender. Ultrasound shows gallstones and a thickened gallbladder wall. Lab results look okay. Patient only partly improved on re-evaluation. Patient will need to be admitted for supportive care and further workup and surgical consultation for possible cholecystectomy. Critical Care Note Critical Care Time?: No Stability Stability form required: No Heart Score Heart Score: Heart Score Response (Comments) Value History N/A 0 EKG N/A 0 Age N/A 0 Risk Factors N/A 0 Troponin N/A 0 Total 0 CHEIKH BOYCE MD Sep 12, 2025 01:00
[2025-09-12 01:02] LABS: Hemoglobin 12.3 g/dL (12.2-16.2); Mean Corpuscular Hemoglobin 25.8 pg (28.0-32.0); Nucleated Red Blood Cells % 0.0 %
[2025-09-12 01:04] LABS: Hematocrit 36.9 % (36.0-46.0); Mean Corpuscular Volume 77.0 fL (80.0-100.0)
[2025-09-12 01:10] LABS: Alanine Aminotransferase 18 U/L (7-40); Albumin 4.5 g/dL (3.2-4.8); Anion Gap 8 (5-15); BUN/Creatinine Ratio 13.0 (10.0-20.0); Blood Urea Nitrogen 12 mg/dL (9-23); Calcium 9.8 mg/dL (8.7-10.4); Carbon Dioxide 26 mmol/L (20-31); Chloride 106 mmol/L (98-107); Lipase 34 U/L (12-53); Potassium 4.1 mmol/L (3.5-5.1); Sodium 140 mmol/L (136-145); Total Protein 8.2 g/dL (5.7-8.2)
[2025-09-12 01:11] LABS: Bilirubin, Total 0.3 mg/dL (0.2-1.0)
[2025-09-12 01:17] LABS: Alkaline Phosphatase 120 U/L (46-116); Glucose 123 mg/dL (74-106)
--- NOTE | 2025-09-12 02:46 | DVH ---
INDICATION: RUQ pain TECHNIQUE: Multiple real-time sonographic images were obtained of the right upper quadrant. COMPARISON: US ABDOMEN LIMITED on DOS: 03/30/24, US PELVIS COMPLETE on DOS: 03/29/24, US PELVIS LIMITED on DOS: 03/29/24 FINDINGS: The liver demonstrates diffusely increased echotexture without focal mass lesions. The liver measures 17.5 cm. Normal hepatopetal portal venous flow appreciated. No evidence of pleural effusion or abdominal ascites. There is no intrahepatic or extrahepatic ductal dilatation. The common duct measures 0.3 cm. Mobile gallstones within the gallbladder. The gallbladder wall is thickened, measuring 0.7 cm. Negative sonographic hall's sign. The right kidney measures 10.0 cm. The right kidney is normal in contour, size, and shape. The echogenicity is normal. There is no hydronephrosis. The pancreas is not well visualized due to overlying bowel gas. IMPRESSION: 1. Cholelithiasis with thickened gallbladder wall. Negative sonographic Hall's sign. Findings equivocal for acute cholecystitis. 2. Hepatic steatosis.
[2025-09-12 03:18] LABS: Urine Protein, UAD Negative (Negative)
[2025-09-12] MEDS: PIPERACILLIN-TAZOB 3.375GM 100 ML IV ONE (03:45)
--- NOTE | 2025-09-12 04:59 | DVHHP2 ---
History of Present Illness Reason for Visit: Abdominal pain History of Present Illness Tlpics-mqqoi-onoh-old female presents for evaluation of abdominal pain. Patient reports developing right upper quadrant intermittent abdominal pain since last night. Denies nausea or vomiting. No fever or chills. She reports history of gallstones. No other acute complaints reported. Past Medical History Gallstones Past Surgical History Family History Noncontributory Smoke: No ALCOHOL: none Drugs: None Lives: with Family Review of Systems Review of Systems Review of systems are currently negative otherwise addressed in HPI. Allergies: Coded Allergies: NO KNOWN ALLERGIES (Unverified , 05/01/24) Exam Vital Signs Vital Signs Date Time Temp Pulse Resp B/P (MAP) Pulse Ox O2 Delivery O2 Flow Rate FiO2 09/12/25 04:38 98.3 70 15 124/61 (82) 98 98.3 09/12/25 04:38 Room Air* 0 21 Exam Gen: 30-year-old female in mild distress, morbidly obese Skin: Warm, dry, normal color and texture, no rash. HEENT: Normocephalic atraumatic, mucous membranes moist and pink. Neck: Cervical and supraclavicular nodes normal without enlargement, trachea is midline, thyroid gland is normal without masses. Pulmonary: Clear to auscultation and percussion bilaterally. Cardiac: Regular rate and rhythm. No murmur Abdomen: Soft, right upper quadrant tenderness, nondistended, bowel sounds present all 4 quadrants, no guarding, no rigidity, no organomegaly. Extremities: No cyanosis, clubbing, no edema Neuro: Cranial nerves II through XII grossly intact, normal affect and speech, no focal motor deficits. Labs/Xrays ORDERING PHYSICIAN: CHEIKH BOYCE MD PROCEDURE(s): GBUS - GALLBLADDER REASON: RUQ pain ORDER NUMBER(s): [id number], ACCESSION NUMBER(s): [id number] INDICATION: RUQ pain TECHNIQUE: Multiple real-time sonographic images were obtained of the right upper quadrant. COMPARISON: US ABDOMEN LIMITED on DOS: 03/30/24, US PELVIS COMPLETE on DOS: 03/29/24, US PELVIS LIMITED on DOS: 03/29/24 FINDINGS: The liver demonstrates diffusely increased echotexture without focal mass lesions. The liver measures 17.5 cm. Normal hepatopetal portal venous flow appreciated. No evidence of pleural effusion or abdominal ascites. There is no intrahepatic or extrahepatic ductal dilatation. The common duct measures 0.3 cm. Mobile gallstones within the gallbladder. The gallbladder wall is thickened, measuring 0.7 cm. Negative sonographic hall's sign. The right kidney measures 10.0 cm. The right kidney is normal in contour, size, and shape. The echogenicity is normal. There is no hydronephrosis. The pancreas is not well visualized due to overlying bowel gas. IMPRESSION: 1. Cholelithiasis with thickened gallbladder wall. Negative sonographic Hall's sign. Findings equivocal for acute cholecystitis. 2. Hepatic steatosis. Labs Test 09/12/25 02:15 09/12/25 00:38 Range/Units Urine Color Light-yellow Yellow Urine Clarity Clear Clear Urine pH 5.0 5.0-9.0 Urine Specific [place] 1.017 1.001-1.035 Urine Protein Negative Negative Urine Ketones Negative Negative Urine Blood Negative Negative /uL Urine Nitrite Negative Negative Urine Bilirubin Negative Negative Urine Urobilinogen Normal Negative mg/dL Urine Leukocyte Esterase 1+ Negative /uL Urine RBC 3 0 - 4 /hpf Urine Microscopic WBC 25 H 0-5 /HPF Urine Squamous Epithelial Cells Few <5 /hpf Urine Bacteria Mod H None Seen /hpf Urine Glucose Normal Normal mg/dL Urine Test Negative Negative White Blood Count 8.2 4.4-10.8 10^3/uL Red Blood Count 4.79 4.0-5.20 10^6/uL Hemoglobin 12.3 12.2-16.2 g/dL Hematocrit 36.9 36.0-46.0 % Mean Corpuscular Volume 77.0 L 80.0-100.0 fL Mean Corpuscular Hemoglobin 25.8 L 28.0-32.0 pg Mean Corpuscular Hemoglobin Concent 33.5 32.0-36.0 g/dL Red Cell Distribution Width 15.9 H 11.8-14.3 % Platelet Count 255 140-450 10^3/uL Mean Platelet Volume 8.4 6.9-10.8 fL Neutrophils (%) (Auto) 76.5 37.0-80.0 % Lymphocytes (%) (Auto) 15.0 10.0-50.0 % Monocytes (%) (Auto) 6.3 0.0-12.0 % Eosinophils (%) (Auto) 1.7 0.0-7.0 % Basophils (%) (Auto) 0.5 0.0-2.0 % Neutrophils # (Auto) 6.2 1.6-8.6 10 ^3/uL Lymphocytes # (Auto) 1.2 0.4-5.4 10 ^3/uL Monocytes # (Auto) 0.5 0-1.3 10 ^3/uL Eosinophils # (Auto) 0.1 0-0.8 10 ^3/uL Basophils # (Auto) 0 0-0.2 10 ^3/uL Nucleated Red Blood Cells 0.0 % Sodium Level 140 136-145 mmol/L Potassium Level 4.1 3.5-5.1 mmol/L Chloride Level 106 98-107 mmol/L Carbon Dioxide Level 26 20-31 mmol/L Anion Gap 8 5-15 Blood Urea Nitrogen 12 9-23 mg/dL Creatinine 0.92 0.550-1.02 mg/dL Glomerular Filtration Rate Calc 87 >90 mL/min BUN/Creatinine Ratio 13.0 10.0-20.0 Serum Glucose 123 H 74-106 mg/dL Calcium Level 9.8 8.7-10.4 mg/dL Total Bilirubin 0.3 0.2-1.0 mg/dL Aspartate Amino Transferase (AST) 19 13-40 U/L Alanine Aminotransferase (ALT) 18 7-40 U/L Alkaline Phosphatase 120 H 46-116 U/L Total Protein 8.2 5.7-8.2 g/dL Albumin 4.5 3.2-4.8 g/dL Lipase 34 12-53 U/L SEPSIS Sepsis Screen Date sepsis recognized/suspect: Sep 12, 2025 Time Sepsis recognized/suspect: 0444 Recent Procedure: No On Antibiotic Therapy: Yes Respiratory Rate >20: No Heart Rate >90: No Temp<36 C (96.8 F) or >38.3 C: No SBP <90 or MAP <65 mmHG: No New Acute Mental Status Change: No Is the patient on CPAP, BIPAP,: No Physician Orders Gallbladder (09/12/25 00:29) Vital Signs Date Time Temp Pulse Resp B/P (MAP) Pulse Ox O2 Delivery O2 Flow Rate FiO2 09/12/25 04:38 98.3 70 15 124/61 (82) 98 98.3 09/12/25 04:38 70 15 98 Room Air* 0 21 09/12/25 02:20 98.3 83 18 140/90 (107) 99 98.3 09/12/25 00:06 98.2 77 18 136/98 98 98.2 Laboratory Tests Test 09/12/25 00:38 White Blood Count 8.2 10^3/uL (4.4-10.8) Medications Medications Dose Ordered Sig/Reilly Route Start Time Stop Time Status Last Admin Dose Admin Piperacillin Sod/ Tazobactam Sod 100 ml @ 100 mls/hr ONCE ONCE IV 09/12/25 03:45 09/12/25 04:44 DC 09/12/25 03:45 100 MLS/HR Assessment/Plan Assessment/Plan Assessment Acute abdominal pain Rule out acute cholecystitis UTI Morbid obesity Plan Admit the patient to [facility] to the hospitalist NPO Zosyn Surgical consult Maintenance IV fluids Pain management Continue treatment per orders. Plan discussed with: Patient Date of Service: Sep 12, 2025 Billing Provider: LISA ERAZO Common Visit Codes: [id number] INP/OBS CARE (HIGH) LISA ERAZO Sep 12, 2025 04:59
[2025-09-12] MEDS: SODIUM CHLORIDE 0.9% 1,000 ML IV ONE (05:00)
[2025-09-12] MEDS ORDERED: NITROGLYCERIN 0.4 MG SL TAB SL PRN (05:00)
[2025-09-12] MEDS ORDERED: MORPHINE SULFATE INJ 2 MG/ml SYRG IV PRN ×2 (05:00)
--- NOTE | 2025-09-12 05:31 | DVH ---
CHEST RADIOGRAPH Indication: Preop Technique: Single frontal view of the chest was obtained COMPARISON: US GALLBLADDER on DOS: 09/12/25, US PELVIC on DOS: 11/23/24, CT CT AB PEL WO CON-NO ORAL OR IV on DOS: 11/23/24, US BIOPHYSICAL PROFILE on DOS: 11/16/24, US BIOPHYSICAL PROFILE on DOS: 11/14/24 FINDINGS: Lines and Tubes: None Lungs: Clear Pleura: No effusion. No pneumothorax. Cardiomediastinal contours: Unremarkable Bones: Unremarkable IMPRESSION: 1. No acute disease.
[2025-09-12] MEDS ORDERED: PIPERACILLIN-TAZOB 3.375GM 100 ML IV SCH (06:00)
[2025-09-12 06:17] LABS: INR 1.04 (0.9-1.15); Partial Thromboplastin Time 30.8 SEC (24.5-34.5); Prothrombin Time 11.0 sec (9.3-11.8)
[2025-09-12] MEDS: PANTOPRAZOLE 40 MG/10 ML VIAL INJ IV SCH (09:35)
--- NOTE | 2025-09-12 11:16 | DVHINCON2 ---
Consultation - Surgical Date Seen: Sep 12, 2025 Referring Physician Reason for Consultation Cholecystitis History of Present Illness History of Present Illness Mrs. Hernandez is a 30-year-old female who presents with right upper quadrant pain since last night around 10:00 p.m. patient got so severe that she decided to come to the ED. She has had this pain episodes in the past. No particular foods triggers the pain. Denies fevers, chills, acholic stools, darkening of her urine. Past Medical/Surgical History Past Medical/Surgical History PMH denies PSH Family and Social History Family and Social History Family history noncontributory ETOH/T Ob/drugs denies Allergies and medications Allergies: Coded Allergies: NO KNOWN ALLERGIES (Unverified , 05/01/24) Home Meds Active Scripts Cephalexin (KEFLEX CAPSULE) 250 Mg Cp, 2 CAP PO BID for 7 Days, #28 CAP Prov:SUSAN STANTON DO 11/24/24 Ibuprofen Micronized (Ibuprofen) 800 Mg Tab, 800 MG PO Q8HP PRN, #40 TAB Prov:RYAN OTTO DO 11/20/24 Reported Medications Labetalol Hcl (Labetalol Hcl) 300 Mg Tab, 300 MG PO BID for 30 Days, MG 11/14/24 Vit W/ Ferrous Fumara ( One Daily) Daily Tab, 1 TAB PO DAILY, #90 TAB 3 Refills 10/14/24 Review of systems Review of Systems: Deferred Examination Vital signs Vital Signs Date Time Temp Pulse Resp B/P (MAP) Pulse Ox O2 Delivery O2 Flow Rate FiO2 09/12/25 09:20 97.6 84 18 110/57 (74) 99 97.6 09/12/25 07:18 Room Air* 0 21 Medications Current Medications Medications (Trade) Dose Ordered Sig/Reilly Route PRN Reason Start Time Stop Time Status Last Admin Pantoprazole Sodium (Protonix) 40 mg DAILY IV 09/12/25 10:00 09/12/25 09:35 Piperacillin Sod/ Tazobactam Sod 100 ml @ 25 mls/hr Q8HR IV 09/12/25 06:00 UNV Ondansetron HCl (Zofran) 4 mg Q4HP PRN IV NAUSEA / VOMITING 09/12/25 05:00 Morphine Sulfate 2 mg Q4HPRN PRN IV SEVERE PAIN (7-10 PAIN SCALE) 09/12/25 05:00 Nitroglycerin (Ntrostat Sublingual) 0.4 mg Q5MINP PRN SL FOR CHEST PAIN 09/12/25 05:00 Morphine Sulfate 2 mg Q30M PRN IV FOR CHEST PAIN 09/12/25 05:00 Piperacillin Sod/ Tazobactam Sod 100 ml @ 25 mls/hr Q8H IV 09/12/25 11:45 Laboratory Labs Test 09/12/25 05:05 09/12/25 02:15 09/12/25 00:38 Range/Units Prothrombin Time 11.0 9.3-11.8 sec Prothrombin Time INR 1.04 0.9-1.15 Activated Partial Thromboplast Time 30.8 24.5-34.5 SEC Urine Color Light-yellow Yellow Urine Clarity Clear Clear Urine pH 5.0 5.0-9.0 Urine Specific [place] 1.017 1.001-1.035 Urine Protein Negative Negative Urine Ketones Negative Negative Urine Blood Negative Negative /uL Urine Nitrite Negative Negative Urine Bilirubin Negative Negative Urine Urobilinogen Normal Negative mg/dL Urine Leukocyte Esterase 1+ Negative /uL Urine RBC 3 0 - 4 /hpf Urine Microscopic WBC 25 H 0-5 /HPF Urine Squamous Epithelial Cells Few <5 /hpf Urine Bacteria Mod H None Seen /hpf Urine Glucose Normal Normal mg/dL Urine Test Negative Negative White Blood Count 8.2 4.4-10.8 10^3/uL Red Blood Count 4.79 4.0-5.20 10^6/uL Hemoglobin 12.3 12.2-16.2 g/dL Hematocrit 36.9 36.0-46.0 % Mean Corpuscular Volume 77.0 L 80.0-100.0 fL Mean Corpuscular Hemoglobin 25.8 L 28.0-32.0 pg Mean Corpuscular Hemoglobin Concent 33.5 32.0-36.0 g/dL Red Cell Distribution Width 15.9 H 11.8-14.3 % Platelet Count 255 140-450 10^3/uL Mean Platelet Volume 8.4 6.9-10.8 fL Neutrophils (%) (Auto) 76.5 37.0-80.0 % Lymphocytes (%) (Auto) 15.0 10.0-50.0 % Monocytes (%) (Auto) 6.3 0.0-12.0 % Eosinophils (%) (Auto) 1.7 0.0-7.0 % Basophils (%) (Auto) 0.5 0.0-2.0 % Neutrophils # (Auto) 6.2 1.6-8.6 10 ^3/uL Lymphocytes # (Auto) 1.2 0.4-5.4 10 ^3/uL Monocytes # (Auto) 0.5 0-1.3 10 ^3/uL Eosinophils # (Auto) 0.1 0-0.8 10 ^3/uL Basophils # (Auto) 0 0-0.2 10 ^3/uL Nucleated Red Blood Cells 0.0 % Sodium Level 140 136-145 mmol/L Potassium Level 4.1 3.5-5.1 mmol/L Chloride Level 106 98-107 mmol/L Carbon Dioxide Level 26 20-31 mmol/L Anion Gap 8 5-15 Blood Urea Nitrogen 12 9-23 mg/dL Creatinine 0.92 0.550-1.02 mg/dL Glomerular Filtration Rate Calc 87 >90 mL/min BUN/Creatinine Ratio 13.0 10.0-20.0 Serum Glucose 123 H 74-106 mg/dL Calcium Level 9.8 8.7-10.4 mg/dL Total Bilirubin 0.3 0.2-1.0 mg/dL Aspartate Amino Transferase (AST) 19 13-40 U/L Alanine Aminotransferase (ALT) 18 7-40 U/L Alkaline Phosphatase 120 H 46-116 U/L Total Protein 8.2 5.7-8.2 g/dL Albumin 4.5 3.2-4.8 g/dL Lipase 34 12-53 U/L Examination: GENERAL:Normal, HEENT:Normal (No icterus), ABDOMEN:Normal (Nondistended, large pannus, soft, depressible, Pfannenstiel scar, right upper quadrant tenderness, no rebound, no guarding) Problem List/Assessment/Plan Problems: (1) Acute cholecystitis Assessment and Plan Mrs. Hernandez is a 30-year-old female who presents with the acute cholecystitis. Ultrasound shows stones with gallbladder wall thickening. Liver function tests are within normal limits. Patient will benefit from laparoscopic cholecystectomy. Procedure, risks, benefits, complications, and alternatives were discussed with the patient. Patient would like to proceed with surgery as planned. 1. On-call to OR for laparoscopic cholecystectomy, possible open 2. NPO except medications 3. A.m. labs 4. Pain and nausea control 5. Continue with ceftriaxone Plan discussed with Plan discussed with: Patient Visit Coding Surgery Date of Service if different f: Sep 12, 2025 Billing Provider: FERNANDO MCMULLEN MD Surgery Visit Codes: [id number] - INP CONSULT <110 MIN FERNANDO MCMULLEN MD Sep 12, 2025 11:16
[2025-09-12] MEDS: PIPERACILLIN-TAZOB 3.375GM 100 ML IV SCH (11:36)
[2025-09-12] MEDS: SUCCINYLCHOLINE CHLORIDE 20 MG/ML 10ML VIAL IV ONE (13:55)
[2025-09-12] MEDS ORDERED: fentaNYL CITRATE 100 MCG/2 ML VL ONE (13:58)
[2025-09-12] MEDS ORDERED: SUGAMMADEX 200mg/2ml Vial (100MG/ML) IV ONE (13:58)
[2025-09-12] MEDS ORDERED: MEPERIDINE HCL (25 MG/ML) 1ML VIAL ONE (13:58)
[2025-09-12] MEDS: BUPIVACAINE 0.25% INJ 50ML VIAL ONE (15:16)
[2025-09-12] MEDS ORDERED: HYDROcodone-ACET 5/325MG TAB PO PRN (15:30)
--- NOTE | 2025-09-12 15:32 | DVHOP2 ---
Operative Report - 2 Report Details Date: 09/12/25 Preop Diagnosis: Acute cholecystitis Postop Diagnosis: Symptomatic cholelithiasis Surgeon: Fernando Waldron MD Yardage Control Operator Forming: Claudio Helton NP Anesthesiologist: Dr. Allred Anesthesia: General Consent: The patient was informed of the risks and benefits of the procedure. These include but are not limited to complications of anesthesia, postoperative infection, incomplete relief of symptoms, recurrence of symptoms, damage to blood vessels, nerves and tendons, deep venous thrombosis, pulmonary embolism and possible need for repeat surgery in the future. Complications: None Estimated Blood Loss: 5 mL Findings: Minimal thin omental adhesions to gallbladder, thick overlying peritoneum. Indications for Surgery: Gallbladder pain episode since last night. Name of Procedure Performed Laparoscopic cholecystectomy Procedure Details Procedure Details: Upon arriving to the operating room the patient was transferred to the operating table and placed in the supine position with arms extended. General endotracheal anesthesia was induced. Time-out was observed. Patient was prepped and draped in a standard sterile surgical fashion with chlorhexidine. I then proceeded to make an infraumbilical curvilinear incision and dissected down to the fascia once at the fascia I grasped the umbilical stalk with Neema clamp, and then walked the umbilical stalk down to its base. Once at the base I gained entry to the peritoneal cavity utilizing Escamilla technique. I then placed a [id number] of 0 Vicryl retention suture on the fascia. I then introduced the Escamilla trocar and established pneumoperitoneum to 15 mmHg with toleration. I then introduced a 10 mm 30 degree camera and assess the entry site no injuries noted. Patient was then placed in the reverse Trendelenburg [id number] position. I then placed 3 additional working ports 5 mm incise at the epigastric area, right midclavicular subcostal area, and right flank. I then directed my attention to the liver and gallbladder. I noticed some thin omental adhesions to the gallbladder wall, they were lysed utilizing cautery. The gallbladder was grasped at its fundus and retracted cephalad and to the right shoulder. I then placed a 2nd grasper at the infundibulum and retracted laterally to expose Calot triangle. I then incised the overlying peritoneum at the base of the gallbladder and walked it towards the liver. The gallbladder had thick overlying peritoneum. I then dissected all the fibrous and fatty tissue from cholesterol angle until I was able to identify the cystic duct and cystic artery. Critical view of safety was obtained. I then clipped the cystic duct 3 times proximal with 5 mm clips and 1 distal. I then clipped the artery 2 times proximal and 1 distal with 5 mm clips. Both the artery and the duct were transected. I then noted a posterior cystic artery branch, this was also clipped 2 times proximal and 1 distal transected. I then proceeded to free the gallbladder off of the liver bed with cautery. Once the gallbladder was completely off of the liver bed I placed it in the Endo-Catch bag and proceeded to remove it out of the peritoneal cavity through the infraumbilical incision. I then inspected the liver bed, no bleeding was noted. There was very minimal bile spillage from the duct clipped at the gallbladder. I then serially irrigated the liver fossa and over the liver until effluent was clear. I then proceeded to inspect the clips they were in place. This concluded the intraperitoneal portion of the operation. All counts complete and correct. All 5 mm working ports were removed under direct vision, no bleeding noted from abdominal wall. I then allowed the peritoneal cavity to fully desufflate. The fascial retention suture at the infraumbilical site was closed. Marcaine 0.25% was used as local anesthetic. All skin sites were closed with 4-0 Monocryl and Dermabond. Patient tolerated the procedure well and was transferred to PACU in stable condition. Specimen: Gallbladder and contents Condition Stable Disposition Still a Patient FERNANDO MCMULLEN MD Sep 12, 2025 15:32
[2025-09-12] MEDS: HYDROmorphone HCL 2 MG/ML VL/or syr IV PRN (15:45)
[2025-09-12] MEDS: ACETAMINOPHEN IV 1000 MG/100ML (10MG/ML) IV PRN (15:46)
[2025-09-12] MEDS: ACETAMINOPHEN IV 100 ML IV ONE (15:59)
[2025-09-12] MEDS: HYDROmorphone HCL 2 MG/ML VL/or syr ONE ×2 (16:00)
[2025-09-12] MEDS: METOCLOPRAMIDE HCL 5MG/ml INJ 2ml VIAL IV PRN (16:11)
[2025-09-12] MEDS: MEPERIDINE HCL (25 MG/ML) 1ML VIAL IV PRN (16:12)
[2025-09-12] MEDS: ONDANSETRON HCL 4 MG/2 ML VIAL IV PRN ×2 (16:21→21:08)
[2025-09-12] MEDS: HYDROcodone-ACET 10/325MG TAB PO PRN (16:29)
[2025-09-12] MEDS: ACETAMINOPHEN 325 MG TAB PO SCH (18:26)
[2025-09-12] MEDS: KETOROLAC TROMETH 30 MG/ML 1ML VIAL IV SCH (21:11)
[2025-09-13] VITALS (7 sets, daily range): BP systolic 106–142; BP diastolic 61–80; PULSE 65–85; RESP 14–19; TEMP 97.7–98.2; O2SAT 97–100
[2025-09-13 06:28] LABS: Nucleated Red Blood Cells % 0.0 %
[2025-09-13 06:30] LABS: Hematocrit 37.5 % (36.0-46.0); Hemoglobin 12.3 g/dL (12.2-16.2); Mean Corpuscular Hemoglobin 25.7 pg (28.0-32.0); Mean Corpuscular Volume 78.1 fL (80.0-100.0)
[2025-09-13 06:32] LABS: Chloride 106 mmol/L (98-107); Potassium 4.1 mmol/L (3.5-5.1); Sodium 141 mmol/L (136-145)
[2025-09-13 06:33] LABS: Anion Gap 12 (5-15); Calcium 9.1 mg/dL (8.7-10.4); Carbon Dioxide 23 mmol/L (20-31)
[2025-09-13 06:38] LABS: BUN/Creatinine Ratio 10.0 (10.0-20.0); Blood Urea Nitrogen 9 mg/dL (9-23)
[2025-09-13 06:42] LABS: Glucose 113 mg/dL (74-106)
--- NOTE | 2025-09-13 10:05 | DVHPN2 ---
Progress Note - Surgical Date Seen: Sep 13, 2025 Post op day Post op day: 1 Subjective Patient reports: Feels better (Patient feeling good, though no complaints of abdominal pain, tolerating diet, no nausea, no vomiting, afebrile, with vital stable) Review of Systems: Deferred Objective Vital signs Vital Sign Date Time Temp Pulse Resp B/P (MAP) Pulse Ox O2 Delivery O2 Flow Rate FiO2 09/13/25 08:20 98.2 76 19 121/70 (87) 98 98.2 09/12/25 20:00 Room Air* 0 21 Total Intake and Output 09/12/25 09/12/25 09/13/25 15:00 23:00 07:00 Intake Total 120 ml Balance 120 ml Medications Current Medications Medications Dose Ordered Sig/Reilly Route Start Time Stop Time Status Last Admin Dose Admin Pantoprazole Sodium 40 mg DAILY IV 09/12/25 10:00 09/13/25 09:38 40 MG Piperacillin Sod/ Tazobactam Sod 100 ml @ 25 mls/hr Q8HR IV 09/12/25 06:00 UNV Ondansetron HCl 4 mg Q4HP PRN IV 09/12/25 05:00 09/12/25 21:08 4 MG Nitroglycerin 0.4 mg Q5MINP PRN SL 09/12/25 05:00 Piperacillin Sod/ Tazobactam Sod 100 ml @ 25 mls/hr Q8H IV 09/12/25 11:45 09/13/25 04:34 25 MLS/HR Acetaminophen 650 mg Q6HR PO 09/12/25 18:00 09/13/25 06:27 650 MG Ketorolac Tromethamine 15 mg Q8HR IV 09/12/25 22:00 09/17/25 21:59 09/13/25 06:24 15 MG Acetaminophen/ Hydrocodone Bitart 1 tab Q4HPRN PRN PO 09/12/25 15:30 Acetaminophen/ Hydrocodone Bitart 1 tab Q4HP PRN PO 09/12/25 15:30 09/13/25 04:44 1 TAB Laboratory Laboratory Tests 09/13/25 05:43 Test 09/13/25 05:43 Range/Units Serum Glucose 113 H 74-106 mg/dL Examination: GENERAL:Normal, HEENT:Normal (No icterus), ABDOMEN:Normal (Nondistended, soft, depressible, incision sites with skin glue overlying and without surrounding signs of infection, appropriate tenderness) Labs and/or images reviewed: Labs reviewed by me (No leukocytosis, hemoglobin stable) Problem List/Assessment/Plan Problems: (1) Chronic cholecystitis due to gallbladder calculus with obstruction Assessment and Plan Mrs. Hernandez is a 30-year-old female who presented with gallbladder pain and was taken to the OR on 09/12/2025 for laparoscopic cholecystectomy due to symptomatic cholelithiasis, with chronic inflammatory changes. Patient is doing well after surgery, tolerating diet, ambulating, afebrile with stable vital signs. Patient is cleared for discharge per surgical standpoint. 1. Cleared for discharge 2. Maintain low-fat diet 3. No lifting over 10 lb for 6-8 weeks 4. May shower, soap and water okay to run over incisions. No swimming or bathing for 2 weeks. 5. Tylenol and/or ibuprofen for baseline pain control, please follow decay control operator's directions 6. [place] 5-325 mg 1 tab p.o. every 6 hours p.r.n. severe pain 7. No driving while taking narcotics 8. Follow up with Dr. Dang at surgery Clinic in 2 weeks please call for appointment My Orders My Orders Orders - FERNANDO MCMULLEN MD Procedure Category Date Status Time Obtain Consent For: ORDERS 09/12/25 Transmitted 10:05 Obtain Consent For JORDAN 09/12/25 In Process Anesthesia 10:05 Cardiac DIET 09/12/25 Transmitted Diet-2gna,Lofat,Lochol Dinner Acetaminophen Tablet PHA 09/12/25 In Process (Tylenol Tablet) 18:00 Ketorolac Injection PHA 09/12/25 In Process (Toradol Injection) 22:00 Hydrocodone-Acet PHA 09/12/25 In Process 5/325mg Tab ([place] 15:30 Hydrocodone-Acet PHA 09/12/25 In Process 10/325mg Tab ([place] 15:30 Plan discussed with Plan discussed with: Patient Visit Coding Surgery Date of Service if different f: Sep 13, 2025 Billing Provider: FERNANDO MCMULLEN MD Surgery Visit Codes: [id number] INP/OBS CARE(HIGH) FERNANDO MCMULLEN MD Sep 13, 2025 10:05
[2025-09-13] MEDS ORDERED: ROCURONIUM 10MG/ML 10ML VIAL IV ONE (13:37)
[2025-09-13] MEDS ORDERED: PROPOFOL 10 MG/ML 20 ML IV ONE (13:37)
[2025-09-13] MEDS ORDERED: METOCLOPRAMIDE HCL 5MG/ml INJ 2ml VIAL IV PRN (16:00)
--- NOTE | 2025-09-13 16:03 | DVHPN2 ---
Subjective Still having nausea with some pain Reviewed: H&P Changes from previous H/P or p: No Changes Objective Vitals Vital Signs Date Time Temp Pulse Resp B/P (MAP) Pulse Ox O2 Delivery O2 Flow Rate FiO2 09/13/25 12:10 98.2 85 18 118/74 (89) 100 98.2 09/13/25 08:00 Room Air* 0 21 Intake/Output Intake and Output 09/13/25 05:00 Intake Total 220 ml Balance 220 ml Intake Oral 120 ml IV Total 100 ml # Voids 2 General Appearance: Alert, Oriented X3 HEENT: Atraumatic Lungs: Clear to auscultation Cardiovascular: Regular rate, Normal S1, Normal S2 Abdomen: Normal bowel sounds Medications Current Medications Medications Dose Ordered Sig/Reilly Route Start Time Stop Time Status Last Admin Dose Admin Pantoprazole Sodium 40 mg DAILY IV 09/12/25 10:00 09/13/25 09:38 40 MG Piperacillin Sod/ Tazobactam Sod 100 ml @ 25 mls/hr Q8HR IV 09/12/25 06:00 UNV Ondansetron HCl 4 mg Q4HP PRN IV 09/12/25 05:00 09/13/25 11:13 4 MG Nitroglycerin 0.4 mg Q5MINP PRN SL 09/12/25 05:00 Piperacillin Sod/ Tazobactam Sod 100 ml @ 25 mls/hr Q8H IV 09/12/25 11:45 09/13/25 11:13 25 MLS/HR Acetaminophen 650 mg Q6HR PO 09/12/25 18:00 09/13/25 11:15 650 MG Ketorolac Tromethamine 15 mg Q8HR IV 09/12/25 22:00 09/17/25 21:59 09/13/25 14:50 15 MG Acetaminophen/ Hydrocodone Bitart 1 tab Q4HPRN PRN PO 09/12/25 15:30 Acetaminophen/ Hydrocodone Bitart 1 tab Q4HP PRN PO 09/12/25 15:30 09/13/25 04:44 1 TAB Metoclopramide HCl 15 mg Q6HPRN PRN IV 09/13/25 16:00 UNV Laboratory Results Laboratory Tests 09/13/25 05:43 Chemistry Test 09/13/25 05:43 Calcium Level 9.1 mg/dL (8.7-10.4) Urinalysis Test 09/12/25 02:15 Urine Color Light-yellow (Yellow) Urine Clarity Clear (Clear) Urine pH 5.0 (5.0-9.0) Urine Specific [place] 1.017 (1.001-1.035) Urine Protein Negative (Negative) Urine Ketones Negative (Negative) Urine Blood Negative /uL (Negative) Urine Nitrite Negative (Negative) Urine Bilirubin Negative (Negative) Urine Urobilinogen Normal mg/dL (Negative) Urine Leukocyte Esterase 1+ /uL (Negative) Urine RBC 3 /hpf (0 - 4) Urine Microscopic WBC 25 /HPF (0-5) H Urine Squamous Epithelial Cells Few /hpf (<5) Urine Bacteria Mod /hpf (None Seen) H Urine Glucose Normal mg/dL (Normal) Urine Test Negative (Negative) Assessment/Plan Assessment/Plan Acute abdominal pain Rule out acute cholecystitis UTI Morbid obesity s/p lap no on 09/12 Advance diet IV abx Dispo: Possible DC tomorrow Plan discussed with: Patient My Orders Orders - YAMILE HOLT MD Procedure Category Date Status Time Metoclopramide PHA 09/13/25 Logged Injection (Reglan 16:00 Date of Service: Sep 13, 2025 Billing Provider: YAMILE HOLT MD Common Visit Codes: [id number] INP/OBS CARE(HIGH) YAMILE HOLT MD Sep 13, 2025 16:03
[2025-09-14 00:49] VITALS: BP_SYST 103; BP_SYST 113; BP_DIAS 75; PULSE 69; PULSE 81; RESP 14; RESP 18; TEMP 98; O2SAT 97; O2SAT 98
[2025-09-14 05:00] VITALS: BP_SYST 101; BP_SYST 113; BP_DIAS 51; BP_DIAS 61; PULSE 79; PULSE 83; RESP 14; RESP 16; TEMP 97.9; TEMP 98; O2SAT 92; O2SAT 99
[2025-09-14 08:50] VITALS: BP 123/71; PULSE 78; RESP 18; TEMP 97.6; O2SAT 100
[2025-09-14 10:41] LABS: Hepatitis B Surface Antigen Negative (Negative)
[2025-09-14 11:06] LABS: Hepatitis C Antibody Negative (Negative)
[2025-09-14 12:52] VITALS: BP_SYST 136; BP_SYST 139; BP_DIAS 59; BP_DIAS 79; PULSE 73; PULSE 75; RESP 16; RESP 17; TEMP 97.8; TEMP 98; O2SAT 98; O2SAT 99
[2025-09-14] MEDS ORDERED: NALO4SPR2 (16:24)
[2025-09-14] MEDS ORDERED: AUG875T PO (16:24)
[2025-09-14] MEDS ORDERED: ZOFR4T PO (16:24)
[2025-09-14] MEDS ORDERED: HYDR-4902 PO (16:24)
--- NOTE | 2025-09-14 16:27 | DVHDS2 ---
Discharge Summary Date of Admission Sep 12, 2025 at 04:53 Date of Discharge: Sep 14, 2025 Labs/Diagnostic Data: Laboratory Results Test 09/13/25 05:43 09/12/25 19:06 09/12/25 05:05 09/12/25 02:15 White Blood Count 9.1 10^3/uL (4.4-10.8) Red Blood Count 4.80 10^6/uL (4.0-5.20) Hemoglobin 12.3 g/dL (12.2-16.2) Hematocrit 37.5 % (36.0-46.0) Mean Corpuscular Volume 78.1 fL (80.0-100.0) Mean Corpuscular Hemoglobin 25.7 pg (28.0-32.0) Mean Corpuscular Hemoglobin Concent 32.9 g/dL (32.0-36.0) Red Cell Distribution Width 15.9 % (11.8-14.3) Platelet Count 248 10^3/uL (140-450) Mean Platelet Volume 8.6 fL (6.9-10.8) Neutrophils (%) (Auto) 85.7 % (37.0-80.0) Lymphocytes (%) (Auto) 8.6 % (10.0-50.0) Monocytes (%) (Auto) 5.6 % (0.0-12.0) Eosinophils (%) (Auto) 0.0 % (0.0-7.0) Basophils (%) (Auto) 0.1 % (0.0-2.0) Neutrophils # (Auto) 7.8 10 ^3/uL (1.6-8.6) Lymphocytes # (Auto) 0.8 10 ^3/uL (0.4-5.4) Monocytes # (Auto) 0.5 10 ^3/uL (0-1.3) Eosinophils # (Auto) 0 10 ^3/uL (0-0.8) Basophils # (Auto) 0 10 ^3/uL (0-0.2) Nucleated Red Blood Cells 0.0 % Sodium Level 141 mmol/L (136-145) Potassium Level 4.1 mmol/L (3.5-5.1) Chloride Level 106 mmol/L (98-107) Carbon Dioxide Level 23 mmol/L (20-31) Anion Gap 12 (5-15) Blood Urea Nitrogen 9 mg/dL (9-23) Creatinine 0.90 mg/dL (0.550-1.02) Glomerular Filtration Rate Calc 89 mL/min (>90) BUN/Creatinine Ratio 10.0 (10.0-20.0) Serum Glucose 113 mg/dL (74-106) Calcium Level 9.1 mg/dL (8.7-10.4) Hepatitis B Surface Antigen Negative (Negative) Hepatitis C Antibody Negative (Negative) Prothrombin Time 11.0 sec (9.3-11.8) Prothrombin Time INR 1.04 (0.9-1.15) Activated Partial Thromboplast Time 30.8 SEC (24.5-34.5) Urine Color Light-yellow (Yellow) Urine Clarity Clear (Clear) Urine pH 5.0 (5.0-9.0) Urine Specific [place] 1.017 (1.001-1.035) Urine Protein Negative (Negative) Urine Ketones Negative (Negative) Urine Blood Negative /uL (Negative) Urine Nitrite Negative (Negative) Urine Bilirubin Negative (Negative) Urine Urobilinogen Normal mg/dL (Negative) Urine Leukocyte Esterase 1+ /uL (Negative) Urine RBC 3 /hpf (0 - 4) Urine Microscopic WBC 25 /HPF (0-5) Urine Squamous Epithelial Cells Few /hpf (<5) Urine Bacteria Mod /hpf (None Seen) Urine Glucose Normal mg/dL (Normal) Urine Test Negative (Negative) Test 09/12/25 00:38 Total Bilirubin 0.3 mg/dL (0.2-1.0) Aspartate Amino Transferase (AST) 19 U/L (13-40) Alanine Aminotransferase (ALT) 18 U/L (7-40) Alkaline Phosphatase 120 U/L (46-116) Total Protein 8.2 g/dL (5.7-8.2) Albumin 4.5 g/dL (3.2-4.8) Lipase 34 U/L (12-53) Other Laboratory Tests 09/13/25 05:43 Condition at Discharge: Stable Final Diagnosis/Problems List Symptomatic cholelithiasis status post laparoscopic cholecystectomy Hypertension Morbid obesity classIII Discharge Disposition: Home SNF Discharge Will this Physician continue t: No Discharge Instruct/Medications Diet: Cardiac 2g Na,low cholest Activity: Light activity Activity comment: No driving, no sliding of legal documents, no pulling on the bile on narcotics. Follow Up/Referral: Follow up with the PCP in 1 week Follow up with General surgery in 1 week. Medications: Augmentin, [place], Narcan, Zofran as prescribed. Scheduled Amoxicillin & Pot Clavulanate (Augmentin Tablet), 875 MG PO BID Cephalexin (Keflex Capsule), 2 CAP PO BID Labetalol Hcl (Labetalol Hcl), 300 MG PO BID, (Reported) Naloxone HCl (Narcan), 4 MG NA MACHINE SAND MIXER Vit W/ Ferrous Fumara ( One Daily), 1 TAB PO DAILY, (Reported) Scheduled PRN Hydrocodone-Acetaminophen (Hydrocodone Bitartrate/AC 5-325 mg), 1 TAB PO Q8HP PRN Ibuprofen Micronized (Ibuprofen), 800 MG PO Q8HP PRN Ondansetron Odt 4MG Tab (Zofran Po), 4 MG PO Q8HP PRN Discharge Statement: "Patient was advised to return to the ER or call 911 if any headaches, dizziness, shortness of breath, chest pain, abdominal pain, bleeding, fevers, or worsening of medical condition. Patient was counseled about treatment plan, medications, possible side effects, patientverbalized understanding. All questions were answered to the best of my ability. This discharge took greater then 30 minutes in planning, reviewing documentation, counseling the patient, and discussing with other team members." ASSESSMENT ASSESSMENT Assessment Symptomatic cholelithiasis status post laparoscopic cholecystectomy RODGER MCGRAW MD Sep 14, 2025 16:27
[2025-09-14 16:43] VITALS: BP 118/89; PULSE 89; RESP 18; TEMP 99.2; O2SAT 100
== END 2025-09-14 17:41 | disposition home or self-care (01) | DRG 263 ==
LOC: ER 00:04 → OVERFLOW 04:53 → WEST WING 16:53
PROVIDERS: ADMIT Internal Medicine; ATTEND Internal Medicine
PROC: 0FT44ZZ Resection of Gallbladder, Percutaneous Endoscopic Approach (ICD-10-PCS; principal; 2025-09-12 14:02)
DX: K80.12 Calculus of gallbladder with acute and chronic cholecystitis without obstruction (principal); E66.01 Morbid (severe) obesity due to excess calories; N39.0 Urinary tract infection, site not specified; K66.0 Peritoneal adhesions (postprocedural) (postinfection); Z79.1 Long term (current) use of non-steroidal anti-inflammatories (NSAID); Z79.899 Other long term (current) drug therapy; Z98.891 History of uterine scar from previous surgery; Z68.41 Body mass index [BMI] 40.0-44.9, adult
CPT/HCPCS: 36415; 71045; 76705; 80048; 80053; 81001; 81025; 83690; 85025; 85610; 85730; 86803; 86850; 86900; 86901; 87340; 96365; G0378; J0131; J0330; J1100; J1885; J2405; J2470; J2543; J2704; J3490